=== PATIENT | female | born 1960 | race Caucasian/White ===

== ENCOUNTER → 2016-07-06 | Outpatient (CLI) | payer OTHER ==
--- NOTE | 2016-07-06 11:01 | REP ---
CERVICAL SPINE SERIES: Seven views. HISTORY: History of C2 fracture 20 years ago. Cervical spondylosis with myelopathy. FINDINGS: Lateral views done in flexion/extension and neutral position show normal alignment. No subluxation or instability is seen. No fracture or collapse is seen. There is discogenic spurring anteriorly with disc space narrowing at C4-5. Open-mouth odontoid view is unremarkable. AP view shows osteoarthritic facet sclerosis and hypertrophy on the right at C5-6 and to a lesser extent C4-5. Oblique images demonstrate intact neural foramina bilaterally at each cervical level and normally aligned facets. IMPRESSION: Degenerative spondylosis changes. Osteoarthritic facet disease. Degenerative disc disease at C4-5. Signed by Candido Bains MD 07/06/2016 01:36 P
--- NOTE | 2016-07-06 11:27 | REP ---
LUMBAR SPINE SERIES: 7 views including flexion extension views. HISTORY: Spondylosis with myelopathy lumbar region. FINDINGS: Lumbar vertebral body heights are preserved. There is some straightening of the normal lumbar lordosis. Disc spaces are maintained with minimal narrowing at L4-5. Flexion/extension views show no subluxation or instability. Pedicles and posterior elements are intact. There is no evidence of spondylolysis or spondylolisthesis. Sacrum and SI joints are unremarkable. Visualized bowel gas pattern is normal. Psoas margins are symmetric. IMPRESSION: Minimal disc space narrowing at L4-5. Otherwise negative lumbar spine radiographs. Signed by Candido Bains MD 07/06/2016 01:36 P
== END ==
LOC: M RAD 10:18
PROVIDERS: ATTEND Neurological Surgery
DX: M47.16 Other spondylosis with myelopathy, lumbar region (principal)

== ENCOUNTER → 2016-08-03 | Outpatient (REF) | payer OTHER | LOC: M LAB REF 16:46 | PROVIDERS: ATTEND Neurological Surgery | DX: M47.16 Other spondylosis with myelopathy, lumbar region (principal) ==

== ENCOUNTER → 2016-08-07 | Outpatient (CLI) | payer OTHER ==
[2016-08-07 15:20] LABS: BASO % 0.5 % (0.0-1.0); EOS % 0.7 % (0.0-3.0); LARGE UNSTAINED CELL # 0.1 K/mm3 (0.0-0.4); LYMPH % 28.6 % (24.0-44.0); MEAN CORPUSCULAR HEMOGLOBIN 30.2 pg (27.0-33.0); MEAN CORPUSCULAR HGB CONC 33.8 g/dl (32.0-36.5); MEAN CORPUSCULAR VOLUME 89.3 fl (80.0-96.0); MONO # 0.6 K/mm3 (0.0-0.8); MONO % 7.9 % (0.0-5.0); NEUTROPHILS # 4.2 K/mm3 (1.8-7.7); NEUTROPHILS % 60.2 % (36.0-66.0); PLATELET COUNT, AUTOMATED 287 k/mm3 (150-450); RED CELL DISTRIBUTION WIDTH 12.3 % (11.5-14.5)
[2016-08-07 15:23] LABS: MICROSCOPIC INDICATED? MAN NO (NO)
--- NOTE | 2016-08-07 15:25 | REP ---
Clinical: Preoperative assessment. Technique: PA and lateral. Comparison: None. Findings: A subtle area of opacity in the right upper lobe at the midclavicular line cannot be excluded and warrants chest CT evaluation. Mediastinum and cardiac silhouette normal. Remainder of lung cross clear. Skeletal structures intact. Impression: Cannot exclude subtle right upper lobe opacity. No prior examination for comparison. Consider chest CT for further investigation. Signed by Norberto Flores MD 08/07/2016 03:16 P
[2016-08-07 15:48] LABS: ALBUMIN 4.2 GM/DL (3.2-5.2); ALBUMIN/GLOBULIN RATIO 1.31 (1.00-1.93); ALKALINE PHOSPHATASE 65 U/L (45-117); ALT/SGPT 25 U/L (12-78); ANION GAP 7 MEQ/L (8-16); AST/SGOT 14 U/L (15-37); BILIRUBIN,TOTAL 0.3 MG/DL (0.2-1.0); BLOOD UREA NITROGEN 12 MG/DL (7-18); CALCIUM LEVEL 9.2 MG/DL (8.5-10.1); CARBON DIOXIDE LEVEL 29 MEQ/L (21-32); CHLORIDE LEVEL 103 MEQ/L (98-107); CREATININE FOR GFR 0.81 MG/DL (0.55-1.02); GLOMERULAR FILTRATION RATE > 60.0 (>51); GLUCOSE, FASTING 69 MG/DL (70-105); POTASSIUM SERUM 4.2 MEQ/L (3.5-5.1); SODIUM LEVEL 139 MEQ/L (136-145); TOTAL PROTEIN 7.4 GM/DL (6.4-8.2)
[2016-08-07 15:57] LABS: COLLAGEN ADP > 300 SECONDS (56-103)
--- NOTE | 2016-08-08 07:59 | ECGEPIP ---
Stationary ECG Study [facility] Test Date: 2016-08-07 Pat Name: CARRIE MARTINES Department: Room: - Gender: F Flexible Nanny: : 1960 Requested By: HOWIE Smith Order Number: [id number] Reading MD: Justice Back Measurements Intervals [place] Rate: 81 P: 74 LA: 162 QRS: 75 QRSD: 82 T: 68 QT: 354 QTc: 413 Interpretive Statements SINUS RHYTHM/ SINUS ARRHYTMIA POSSIBLE RIGHT VENTRICULAR CONDUCTION DELAY Electronically Signed On 08-08-2016 7:59:06 EST by Justice Back
== END ==
LOC: M LAB 14:21
PROVIDERS: ATTEND Neurological Surgery
DX: Z01.818 Encounter for other preprocedural examination (principal)

== ENCOUNTER → 2016-08-21 | Outpatient (CLI) | payer OTHER ==
[~2016-08-21] MED LIST: BACL10TA2 PO; CETI10CH PO; GABA300C3 PO; HYDR2TAB2 PO; ISOVUE-370 76% 100ML VIAL (Q9967) As Ordered ONE; LIDO5DIS36 TD; LISI-538 PO; MIRA33504 PO; SENN8.6T10 PO
--- NOTE | 2016-08-21 11:49 | REP ---
REASON: History of neoplasm. No priors for comparison. CONTRAST UTILIZED: 100 mL Isovue-370. There is no mediastinal or hilar adenopathy. There are no pleural or pericardial effusions. The imaged upper abdomen shows left renal scarring with irregular cortical thinning and an irregular left renal morphology, although incompletely imaged on this chest CT. The imaged osseous structures are within normal limits. Evaluation of the lung cross shows a vague 6.3 x 2.3 x 2.3 ground-glass opacity in the right upper lobe. Mild nodular irregular pleural thickening seen in the right lower lobe posteriorly with minimal similar findings seen on the left. There is no evidence of a spiculated lesion. Slight biapical pleuroparenchymal scarring is suspected. IMPRESSION: 1. Large but vague ground-glass opacity in the right upper lobe as described above of uncertain etiology. Pulmonary consultation is suggested. According to the Fleischner Society criteria, this would be categorized as a 4A lesion requiring at least a 3 month followup. 2. Chronic changes seen involving the left kidney as described above. Signed by Brad Mendoza DO 08/21/2016 11:52 A
== END ==
LOC: M RAD 08:38
PROVIDERS: ATTEND Neurological Surgery
DX: D14.31 Benign neoplasm of right bronchus and lung (principal)

== ENCOUNTER 2016-08-26 06:17 | Day surgery (SDC) | payer OTHER ==
[~2016-08-26] VITALS: Ht 165.1 cm; Wt 49.9 kg
[~2016-08-26 06:17] MED LIST changes: +CEFUROXIME SODIUM 1.5 GM in D5W MINI-BAG PLUS 50 ML IV ONE; -ISOVUE-370 76% 100ML VIAL (Q9967) As Ordered ONE; +LR 1,000 ML IV SCH
[2016-08-26] MEDS ORDERED: dexameTHASONE 4 MG/ML 1ML VIAL (J1100) IV ONE (06:30)
[2016-08-26] MEDS ORDERED: THROMBIN SOLN 20,000 UNITS KIT As Ordered ONE (07:21)
[2016-08-26] MEDS: BACITRACIN PWD 50,000 UNITS VIAL As Ordered ONE ×2 (07:22→10:08)
[2016-08-26] MEDS ORDERED: methylPREDNISolone SUSP 40 MG/ML (DEPO-medrol) VIAL (J1030) As Ordered ONE (07:22)
[2016-08-26] MEDS ORDERED: fentaNYL 250 MCG/5 ML INJECTION (J3010) As Ordered ONE (08:47)
[2016-08-26] MEDS ORDERED: LIDOCAINE 2% INJ 100 MG/5 ML SDV (FOR ANES.) As Ordered ONE (08:47)
[2016-08-26] MEDS ORDERED: PROPOFOL 500 MG/50 ML VIAL As Ordered ONE (08:47)
[2016-08-26] MEDS ORDERED: PHENYLephrine HCL 500 MCG/5 ML (100MCG/ML) SYRINGE (J2370) As Ordered ONE (08:47)
[2016-08-26] MEDS ORDERED: dexameTHASONE 4 MG/ML 1ML VIAL (J1100) As Ordered ONE (08:47)
[2016-08-26] MEDS ORDERED: MIDAZOLAM INJ 2 MG/2 ML VIAL (J2250) As Ordered ONE (08:47)
[2016-08-26] MEDS ORDERED: ROCURONIUM BROMIDE 50 MG/5 ML VIAL As Ordered ONE (08:47)
[2016-08-26] MEDS ORDERED: fentaNYL 100 MCG/2 ML INJECTION (J3010) As Ordered ONE ×2 (08:47→11:04)
[2016-08-26] MEDS ORDERED: ONDANSETRON 4MG/2ML VIAL (J2405) As Ordered ONE (08:47)
[2016-08-26] MEDS ORDERED: ePHEDrine SULFATE 25 MG/5 ML(5MG/ML) SYRINGE As Ordered ONE (08:49)
[2016-08-26] MEDS ORDERED: METOCLOPRAMIDE INJ 10MG/2ML VIAL (J2765) As Ordered ONE (09:13)
[2016-08-26] MEDS ORDERED: GLYCOPYRROLATE INJ 0.2 MG/ML 2 ML VIAL As Ordered ONE (09:35)
[2016-08-26] MEDS ORDERED: NEOSTIGMINE 1MG/ML 5 ML SYRINGE (J2710) As Ordered ONE (09:36)
[2016-08-26] MEDS ORDERED: HYDROmorphone HCL 2 MG/ML 1ML VIAL (J1170) As Ordered ONE (09:38)
[2016-08-26] MEDS: fentaNYL 100 MCG/2 ML INJECTION (J3010) IV PRN ×4 (11:05→11:28)
[2016-08-26] MEDS ORDERED: HYDROmorphone HCL 1 MG/ML SYRINGE (J1170) As Ordered ONE (11:25)
[2016-08-26] MEDS ORDERED: ACETAMINOPHEN TAB 650MG DOSE (2X325MG) PO PRN (11:30)
[2016-08-26] MEDS ORDERED: ONDANSETRON 4MG/2ML VIAL (J2405) IV PRN ×2 (11:30)
[2016-08-26] MEDS ORDERED: NORCO, ANEXSIA 5/325MG TABLET (HYDROcodone/ACETAMINOPHEN) PO PRN (11:30)
[2016-08-26] MEDS ORDERED: LR 1,000 ML IV SCH (11:30)
[2016-08-26] MEDS: HYDROmorphone HCL 1 MG/ML SYRINGE (J1170) IV PRN ×5 (11:31→12:14)
[2016-08-26] MEDS ORDERED: NALBUPHINE HCL 10 MG/ML AMP (J2300) IV PRN (11:45)
[2016-08-26] MEDS: PERCOCET 5MG/325MG TAB PO PRN ×2 (11:53→12:27)
[2016-08-26] MEDS: KCL 20MEQ IN D5/0.45NS 1000ML 1,000 ML IV SCH ×2 (12:34→19:43)
[2016-08-26 13:00] VITALS: BP 129/79
[2016-08-26 13:38] VITALS: BP 129/79
[2016-08-26 14:00] VITALS: BP 120/80
--- NOTE | 2016-08-26 14:21 | REP ---
Partial lumbar spine series: Two views. History: Intraoperative films. Lumbar spondylosis. Findings: Two cross-table lateral portable radiographs of the lumbar spine are presented. Initial radiograph is time stamped 9:52 a.m. The second film is time stamped 9:58 a.m. This radiograph demonstrates an intraoperative probe at the posterior aspect of the L4-5 intervertebral disc. Signed by Candido Bains MD 08/26/2016 05:45 P
[2016-08-26 15:00] VITALS: BP 122/78
[2016-08-26 16:00] VITALS: BP 119/88
[2016-08-26] MEDS: NORCO, ANEXSIA 5/325MG TABLET (HYDROcodone/ACETAMINOPHEN) PO PRN ×2 (16:56→21:05)
--- NOTE | 2016-08-26 17:37 | IPN ---
DATE: 08/26/2016 NEUROSURGERY PROCEDURE POSTOPERATIVE NOTE: PREOPERATIVE DIAGNOSIS: Lumbar spondylosis, subarticular stenosis at the L4-5 region. POSTOPERATIVE DIAGNOSIS: Lumbar spondylosis, subarticular stenosis at the L4-5 region. ANESTHESIA: General. SURGEON: Dr. Biggs. HEATING AND COOLING TECHNICIAN: Bree Grayson PA-C. PROCEDURE: Lumbar laminectomy at the L4-5 region with bone plug. FINDINGS: Lumbar spondylosis, subarticular stenosis, bulging disc and a popliteal arthropathy. ESTIMATED BLOOD LOSS: About 5 mL per nursing staff. COMPLICATIONS: None.
[2016-08-26 22:00] VITALS: BP 124/87
[2016-08-27] MEDS: NORCO, ANEXSIA 5/325MG TABLET (HYDROcodone/ACETAMINOPHEN) PO PRN ×5 (01:20→18:29)
[2016-08-27 02:00] VITALS: BP 144/87
[2016-08-27] MEDS: HYDROmorphone 2 MG TAB PO PRN ×4 (02:13→16:13)
[2016-08-27 06:00] VITALS: BP 130/87
[2016-08-27 10:00] VITALS: BP 134/85
[2016-08-27 10:38] VITALS: BP 134/81
[2016-08-27 14:00] VITALS: BP 127/82
--- NOTE | 2016-08-27 15:12 | RO ---
DATE OF PROCEDURE: 08/26/2016 PREPROCEDURE DIAGNOSES: Lumbar spondylosis with radiculopathy, neurogenic claudication, facet arthritis. POSTPROCEDURE DIAGNOSES: Lumbar spondylosis with radiculopathy, neurogenic claudication, facet arthritis. PROCEDURE: Decompression of left, across the midline at L4-5 with discectomy, joceline-semi myomectomies with partial facetectomies and foraminotomies, partial facet rhizotomies at L3-4, L4-5, L5-S1 on the left with posterior fusion using Bacterin interfacet allograft plug at L4-5. SURGEON: Derik Biggs MD BOX LINING MACHINE FEEDER: JAIRO Colón FINDINGS: Please see my office notes for detailed preoperative evaluation and discussions. The patient with relentless low back and mostly left leg pain along L5-S1 distribution in a radicular neurogenic fashion. The work up showed early degenerative changes involving the disc spaces and the posterior elements, causing a degree of inferior foraminal and lateral recess stenosis.. She was seen in the pre op area with her . Her clinical findings were unchanged. Patient and her were aware of all options, risk, scope, expected outcome, sequelae, and complications of the proposed salvage procedure. They understood no guarantees of any kind could be given and the risk of surgery included, but not limited to , coma, paralysis, spinal fluid leakage, meningitis, persistence or worsening of symptoms and/or any deficits, failure of surgery, fusion and/or instrumentation if used, infection, bleeding, deep vein thrombosis (DVT), pulmonary embolism (PE), myocardial infarction (WA), and/or any catastrophic sequelae. The patient and her understood that she is a poor candidate for surgery and it is based on her clinical and radiological findings and history of recently diagnosed large mass in the lung. The patient once again stated that there is no way she could live with these symptoms anymore and is willing to take any or all risk for any possible benefits. She has been taking extensive amount of Narcotics for quite some time. All risks, anesthesia and followup care were discussed with her in the past and again today. After informed consent, she was taken to the operating room. DESCRIPTION OF PROCEDURE: Once in the operating room, general endotracheal anesthesia was given by the anesthesia service. The area of surgery was prepped and draped in the usual sterile fashion. She was positioned prone on a translucent Joshua frame and a fluoroscopic Melvin table. After adequate prep and drape, a skin incision was given centering over the L4/5 inter space. Lumbodorsal fascia was reached and incised on the left of the midline. The paraspinal ,muscles were from the midline structures, keeping the dissection mostly in the paraspinal adipose tissue. Sacrum was visualized; thus L4-L5 interspace was identified. The exposed facets were markedly hypertrophied with redundant capsules. Posterolateral aspect of these were coagulated with a bipolar cautery from L3/ L4 through L5-S1 in the hope of achieving partial facet rhizotomies. Attention was now paid at L4-L5 where generous joceline-semi laminectomy was performed. The decompression was carried superolaterally between the two pedicles to make more room for the exiting nerve root and inferiorly the decompression was carried out to the origin of the S1 nerve root. There was considerable hypertrophy of the facets and ligamentum flavum, and there was a bulging disc with a mall soft component. These findings were contributing to neural compression of thecal sac, and the traversing L5 nerve root, exiting L4 nerve root and also the origin of the S1 root.The bulging disc was generally hard and firm, with a small component of subligamentously herniated disc herniated disc. The disc space was was entered after a stab incision was given over the thinned out annulus, and subligamentously herniated disc was removed in several small pieces. The disc space was then entered and more degenerative disc fragments were removed. There was hypermobility at the L4-L5 facet joint. The left facet joint was opened for several millimeters in its longitudinal axis, and the joint space was cleaned off the redundant synovial tissue. Stylet was placed in the facet joint and it was followed by placement of drill guide; 5 mm drill was used to drill across the facet joint and a 5 mm allograft plug was then placed across the facet joints. Hemostasis was secured throughout the procedure. Blood loss was negligible. There was nothing in the container, maybe 5 or 10 ml per the OR staff. The wound was subsequently closed in anatomic layers and a sterile bandage was applied at the site of surgery. The patient tolerated the procedure satisfactorily and was transferred to the recovery room in stable condition. CAMRON
[2016-08-27] MEDS ORDERED: CIPR-250 PO (17:57)
[2016-08-27] MEDS ORDERED: LORT5TAB PO (17:57)
--- NOTE | 2016-08-28 17:47 | DS.PDOC ---
Discharge Summary General Date of Admission 08/26/2016 Date of Discharge 08/27/2016 Discharge Summary PROCEDURES PERFORMED DURING STAY: Decompression left and across midline, discectomy L4 and L5, with [id number], partial facetectomies, foraminotomies, partial facet rhizotomies, L3/4, L4/5, L5/S1 on the left. Interfacet fusion left L4/L5 using Bacterin allograft plug. ADMITTING DIAGNOSES: 1. Lumbar spondylosis with radiculopathy 2. Neurogenic claudication 3. Facet arthritis DISCHARGE DIAGNOSES: 1. Lumbar spondylosis with radiculopathy 2. Neurogenic claudication 3. Facet arthritis COMPLICATIONS/CHIEF COMPLAINT: Lumbar Spondylosis With Myelopathy. HISTORY OF PRESENT ILLNESS: Please see the physical for details patient long- standing history of chronic low back pain extending down her leg as well as neurogenic condition she had been managing this with large dose narcotics for quite some time. She decided to proceed with salvage surgery. She states she could no Longer Live with This Pain. HOSPITAL COURSE: The hospital course was uneventful Dr. Biggs seen the patient postoperatively she denied any pain of any sort and she will walking on them uneventfully. However the time of discharge she claims the pain was intense in these issues reported that she has normal postoperative ecchymosis because of pain medication she was taking she requested that she be discharged with Dilaudid. Istop suggested that she has been taking Dilaudid prescribed by her primary care provider as she should still have 2 weeks of Dilaudid. Tynan was given and was advised to take his medications but not combined. She was discharged with follow-up instructions and she expressed understanding of the same DISCHARGE MEDICATIONS: Please see below. ALLERGIES: Latex, morphine. LABORATORY DATA: Please see below. IMAGING: Including MRI showed degenerative changes involving the disc spaces as well as the posterior ligaments, and L4-L5 she has a degree of foraminal lateral recess stenosis. DISPOSITION: Improved. She has been cleared for discharge to home. DISCHARGE INSTRUCTIONS: 1. Keep area of incision and bandage completely dry until follow-up in the office. 2. Monitor for signs and symptoms of infection is discussed. 3. Follow-up appointment is scheduled for September 13, 2016. 4. Patient is to call the office if any new symptoms or questions. 5. She is to continue pre-admission medications as well as new medications Cipro 250 mg by mouth twice a day for 5 days. 6. Diet as tolerated. 7. Activity as tolerated. 8. Take temperature twice a day, call if temperature greater than or equal to 100F. All questions have been answered to patient and her 's satisfaction. DISCHARGE CONDITION: Stable. TIME SPENT ON DISCHARGE: Greater than 30 minutes. Vital Signs/I&Os Vital Signs Date Time Temp Pulse Resp B/P Pulse Ox O2 Delivery O2 Flow Rate FiO2 08/27/16 18:29 16 08/27/16 16:43 Room Air 08/27/16 14:00 98.2 80 127/82 97 08/27/16 02:00 2.0 I&O- Last 24 Hours up to 6 AM 08/28/16 06:00 Intake Total 1080 ml Output Total 0 ml Balance 1080 ml Discharge Medications Scheduled Baclofen (Baclofen) 10 Mg Tab 20 MG PO TID (Reported) Cetirizine HCl (Cetirizine HCl) 10 Mg Chw 10 MG PO DAILY (Reported) Ciprofloxacin HCl (Cipro) 250 Mg Tab 250 MG PO BID (Reported) for 5 days Gabapentin (Gabapentin) 300 Mg Cap 300 MG PO TID (Reported) Lisinopril (Lisinopril) 20 Mg Tab 20 MG PO DAILY (Reported) Polyethylene Glycol (Miralax) 1 Pow Pow 17 GM PO DAILY (Reported) Senna (Senna Lax) 8.6 Mg Tab 2 TAB PO DAILY (Reported) Scheduled PRN (Lortab 5-325 mg) 1 Tab Tab 1 TAB PO Q4HP PRN PRN PAIN SCALE 1-5 (Reported) (Lortab 5-325 mg) 1 Tab Tab 2 TAB PO Q4HP PRN PRN PAIN SCALE 6-10 (Reported) Allergies Coded Allergies: Latex (Verified Allergy, Unknown, rash, 08/21/16) Morphine (Verified Adverse Reaction, Mild, vomiting, 08/21/16) WIL MCCLURE PA-C Aug 28, 2016 17:27
== END 2016-08-27 18:50 | disposition home or self-care (01) ==
LOC: M SDC 06:17 → M MS5PR 12:50 → M SDC 08-27 18:50
PROVIDERS: ATTEND Neurological Surgery
DX: M48.06 Spinal stenosis, lumbar region (principal); M47.16 Other spondylosis with myelopathy, lumbar region; M46.1 Sacroiliitis, not elsewhere classified; I10 Essential (primary) hypertension; J45.909 Unspecified asthma, uncomplicated; K21.9 Gastro-esophageal reflux disease without esophagitis; D68.0 Von Willebrand disease; Z91.040 Latex allergy status; Z79.899 Other long term (current) drug therapy
CPT/HCPCS: 20931; 22630; 36415; 63185; 72110; 85576; 88304; C1762; J0697; J1030; J1100; J1170; J2250; J2370; J2405; J2710; J2765; J3010

== ENCOUNTER 2016-09-05 05:42 | Emergency (ER) | payer OTHER ==
[~2016-09-05] VITALS: Ht 165.1 cm; Wt 49.9 kg
[~2016-09-05 05:42] MED LIST changes: -CEFUROXIME SODIUM 1.5 GM in D5W MINI-BAG PLUS 50 ML IV ONE; +CIPR-250 PO; +LORT5TAB PO; -LR 1,000 ML IV SCH
[2016-09-05] MEDS ORDERED: ONDANSETRON 4MG/2ML VIAL (J2405) IV ONE (07:30)
[2016-09-05 07:40] LABS: MEAN CORPUSCULAR HEMOGLOBIN 29.9 pg (27.0-33.0); MEAN CORPUSCULAR HGB CONC 33.4 g/dl (32.0-36.5); MEAN CORPUSCULAR VOLUME 89.3 fl (80.0-96.0); RED CELL DISTRIBUTION WIDTH 12.3 % (11.5-14.5); WHITE BLOOD COUNT 10.6 K/mm3 (4.0-10.0)
[2016-09-05 07:56] LABS: ERYTHROCYTE SEDIMENTATION RATE 17 mm/hr (0-30)
[2016-09-05 08:00] LABS: ANION GAP 8 MEQ/L (8-16); BLOOD UREA NITROGEN 9 MG/DL (7-18); CALCIUM LEVEL 8.8 MG/DL (8.5-10.1); CARBON DIOXIDE LEVEL 26 MEQ/L (21-32); CHLORIDE LEVEL 102 MEQ/L (98-107); CREATININE FOR GFR 0.56 MG/DL (0.55-1.02); GLOMERULAR FILTRATION RATE > 60.0 (>51); GLUCOSE, FASTING 98 MG/DL (70-105); POTASSIUM SERUM 4.1 MEQ/L (3.5-5.1); SODIUM LEVEL 136 MEQ/L (136-145)
[2016-09-05] MEDS ORDERED: MORPHINE 4 MG/ML 1ML SYRINGE IV ONE ×3 (08:30→12:30)
[2016-09-05] MEDS ORDERED: KETOROLAC 30 MG/ML VIAL (J1885) IV ONE (12:30)
[2016-09-05] MEDS ORDERED: KETOROLAC 30 MG/ML VIAL (J1885) As Ordered ONE (12:31)
[2016-09-05] MEDS ORDERED: PERC5TAB6 PO (12:49)
--- NOTE | 2016-09-05 12:51 | REP ---
MRI lumbar spine without and with IV contrast: History: Postoperative swelling, lumbar pain, surgery August 26, 2016. Comparison radiographs are from August 26, 2016. No comparison MRI scan is available. Technique: Pre and post gadolinium enhanced imaging is acquired. Axial and sagittal imaging planes are utilized for T1 and T2-weighted scans obtained with and without fat saturation. MRI contrast dose: 9 mL of intravenous ProHance is administered. MRI findings: Cortical and medullary bone signal intensity are normal. Vertebral body heights are preserved. Alignment is normal. There is some decreased disc space height at L4-5 and there is central bulging of the posterior disc margin indenting the ventral aspect of the thecal sac. This is more prominent on the right than the left. The patient is status post laminectomy at this L4-5 level to the left of midline. Expected post laminectomy changes are seen in the dorsal paraspinal soft tissues. There is postoperative edema over a fairly broad area in the dorsal subcutaneous fat layer. This measures 14 cm in medial to lateral dimension by 1.4 cm in thickness by 9.1 cm in craniocaudal span. There is heterogeneous T2 hyperintense T1 hyperintense fluid or blood under the skin and the subcutaneous tissue centered about the L4-5 laminectomy site. The paravertebral soft tissues are unremarkable. There is mild central canal narrowing at L4-5. Minimal facet hypertrophy is present at L5-S1 bilaterally. No other disc protrusion is seen. Impression: Complex fluid collection in the subcutaneous space dorsally centered about the laminectomy site at L4-5; may be a hematoma. Expected postoperative changes are seen in the paraspinal soft tissues and along the left lateral aspect of the thecal sac at L4-5. There is mild central canal stenosis at L4-5. Diffuse bulging of the central and right side of the L4-5 disc is seen. There is no evidence of epidural fluid collection. Signed by Candido Bains MD 09/05/2016 01:45 P
[2016-09-05] MEDS ORDERED: DERMABOND TOPICAL SKIN ADHESIVE TOP ONE (13:00)
[2016-09-05 13:23] VITALS: BP 116/70
[2016-09-06] MEDS ORDERED: PERC5TAB6 PO (19:25)
[2016-09-06] MEDS ORDERED: CETI10TA PO (19:25)
[2016-09-06] MEDS ORDERED: BACL-67 PO (19:25)
== END 2016-09-05 13:34 | disposition home or self-care (01) ==
LOC: M ED 07:05
DX: M96.840 Postprocedural hematoma of a musculoskeletal structure following a musculoskeletal system procedure (principal)
CPT/HCPCS: 72158; 80048; 85007; 85027; 85652; 86140; 96374; 96375; 96376; 99283; A9576; J1885; J2405

== ENCOUNTER 2016-09-06 17:56 | Inpatient (IN) | payer OTHER ==
[~2016-09-06] VITALS: Ht 165.1 cm; Wt 48.6 kg
[~2016-09-06 17:56] MED LIST changes: +GABA-282 PO; -GABA300C3 PO; +PERC5TAB6 PO
[2016-09-06] MEDS ORDERED: NS 1,000 ML IV SCH ×2 (18:03→19:34)
[2016-09-06] MEDS ORDERED: ACETAMINOPHEN TAB 650MG DOSE (2X325MG) PO ONE (18:15)
[2016-09-06] MEDS ORDERED: MORPHINE 4 MG/ML 1ML SYRINGE IV ONE (18:15)
[2016-09-06 19:15] LABS: BASO % 0.1 % (0.0-1.0); EOS # 0.1 K/mm3 (0.0-0.50); EOS % 0.4 % (0.0-3.0); LARGE UNSTAINED CELL # 0.1 K/mm3 (0.0-0.4); LARGE UNSTAINED CELL % 0.6 % (0.0-4.0); LYMPH # 1.9 K/mm3 (1.5-4.5); LYMPH % 9.9 % (24.0-44.0); MEAN CORPUSCULAR HEMOGLOBIN 30.2 pg (27.0-33.0); MEAN CORPUSCULAR HGB CONC 33.6 g/dl (32.0-36.5); MEAN CORPUSCULAR VOLUME 89.8 fl (80.0-96.0); MONO # 0.9 K/mm3 (0.0-0.8); MONO % 4.9 % (0.0-5.0); NEUTROPHILS # 16.1 K/mm3 (1.8-7.7); PLATELET COUNT, AUTOMATED 288 k/mm3 (150-450); RED CELL DISTRIBUTION WIDTH 12.1 % (11.5-14.5); WHITE BLOOD COUNT 19.1 K/mm3 (4.0-10.0)
[2016-09-06] MEDS ORDERED: ONDANSETRON 4MG/2ML VIAL (J2405) IV ONE (19:15)
[2016-09-06 19:19] LABS: INR 1.08
[2016-09-06] MEDS ORDERED: ceFAZolin 2 GM/D5W 50 ML IV BAG (J0690) As Ordered ONE (19:23)
[2016-09-06] MEDS ORDERED: BACL-67 PO (19:25)
[2016-09-06] MEDS ORDERED: PERC5TAB6 PO (19:25)
[2016-09-06] MEDS ORDERED: CETI10TA PO (19:25)
[2016-09-06] MEDS ORDERED: THROMBIN SOLN 20,000 UNITS KIT As Ordered ONE (19:32)
[2016-09-06] MEDS ORDERED: methylPREDNISolone SUSP 40 MG/ML (DEPO-medrol) VIAL (J1030) As Ordered ONE (19:33)
[2016-09-06] MEDS ORDERED: BACITRACIN PWD 50,000 UNITS VIAL As Ordered ONE ×2 (19:33→21:15)
[2016-09-06 19:35] LABS: ALBUMIN 3.7 GM/DL (3.2-5.2); ALBUMIN/GLOBULIN RATIO 1.06 (1.00-1.93); ALKALINE PHOSPHATASE 84 U/L (45-117); ALT/SGPT 34 U/L (12-78); AMYLASE 37 U/L (25-115); ANION GAP 11 MEQ/L (8-16); AST/SGOT 27 U/L (15-37); BILIRUBIN,DIRECT 0.2 MG/DL (0.0-0.2); BILIRUBIN,TOTAL 0.6 MG/DL (0.2-1.0); BLOOD UREA NITROGEN 13 MG/DL (7-18); CALCIUM LEVEL 8.7 MG/DL (8.5-10.1); CARBON DIOXIDE LEVEL 25 MEQ/L (21-32); CHLORIDE LEVEL 99 MEQ/L (98-107); CREATININE FOR GFR 0.73 MG/DL (0.55-1.02); GLOMERULAR FILTRATION RATE > 60.0 (>51); GLUCOSE, FASTING 91 MG/DL (70-105); POTASSIUM SERUM 4.4 MEQ/L (3.5-5.1); SODIUM LEVEL 135 MEQ/L (136-145); TOTAL PROTEIN 7.2 GM/DL (6.4-8.2)
[2016-09-06 19:36] LABS: ERYTHROCYTE SEDIMENTATION RATE 44 mm/hr (0-30)
[2016-09-06] MEDS ORDERED: ACETAMINOPHEN TAB 650MG DOSE (2X325MG) PO PRN (19:45)
[2016-09-06] MEDS ORDERED: MEROPENEM INJ 2 GM in NS 100 ML IV SCH (19:45)
[2016-09-06] MEDS ORDERED: VANCOMYCIN HCL 750 MG, VIAL MATE ADAPTER 1 EACH in D5W 250 ML IV SCH (19:45)
[2016-09-06] MEDS ORDERED: ONDANSETRON 4MG/2ML VIAL (J2405) IV PRN ×2 (19:45→22:30)
--- NOTE | 2016-09-06 20:36 | CR.PDOC ---
[facility] Consultation Consultation DATE OF CONSULTATION: Sep 06, 2016 at 18:28 REFERRING PROVIDER: Dr. Biggs ATTENDING PHYSICIAN: Dr. Biggs REASON FOR CONSULTATION/CHIEF COMPLAINT: Presented to the ER with complaints of back pain, headache, nausea, vomiting and fever. 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 She notes that she had a laminectomy of L4-L5 on 08/[address] Biggs. She had the procedure schedule because of chronic back pain and radiculopathy. Patient has had improvement in her symptoms for 1 week until this Wednesday (09/04) she began to have worsening back pain. Upon changing the dressing her noted that there was a large amount of clear fluid that was coming out. Patient had headache and nausea and vomiting throughout the weekend and prompted her to come to the ER. Her headache was reported as a 10/10, continuous , radiating to temples, minor alleviation with ice packs and aggravation with standing up. She notes that this is the first time she has experienced this. She reports that she has had nausea and vomiting, about 5 times, non-bloody and non-bilious. She reports that she has been having some back pain associated with the surgery and now has progressed to a pressure type of feeling at the back. She also notes a fever today of 103.0F. She denies any chest pain, shortness of breath, cough, abdominal pain, constipation or diarrhea. She does note that she has burning with urination. ALLERGIES: Please see below. HOME MEDICATIONS: Please see below. 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 REVIEW OF SYSTEMS: Constitutional: Denies weight loss, change in appetite, or recent trauma Eyes: No visual changes or eye pain Ears, Nose, Throat: Denies nose bleeds, or difficulty swallowing Cardiovascular: Denies chest pain, sweating, or orthopnea Respiratory: Denies cough, wheezing, or shortness of breath GI: Positive nausea and vomiting, No abdominal pain, diarrhea or constipation : Positive dysuria Musculoskeletal: Denies joint pain or swelling Neuro / Psych: Positive leg weakness at left and right, no upper extremity weakness, no sensory loss Skin: No skin rashes noted All other review of systems negative; otherwise stated in history of present illness PHYSICAL EXAM: - Vitals: BP 157/97, HR 112, RR 20, Sat 96%RA, Temp 101.6F - General: Lying in bed, No acute distress, Speaking in full sentences, AAOx3 - HEENT: NC, AT, PERRLA, EOMI - CVS: RRR, +S1S2, - Murmurs / rubs / gallops - Lungs: Fair air entry bilaterally, Clear to auscultation, No wheezing / rales / rhonchi - Abdomen: Soft, Non-distended, Non-tender, + Bowel sounds x 4 - Extremities: + PPx4, No lower extremity edema, No calf tenderness - Neuro: 3-4/5 strength at bilateral lower extremities, no upper extremity weakness, no sensory deficit - Skin: Lumbar incision, minor drainage noted, some erythema noted, +tenderness LABORATORY DATA: Please see below. ASSESSMENT/PLAN: Headache, lower back pain, fever, lower extremity weakness possibly 2/2 fluid collection at lumbar incision site, possibly 2/2 hematoma or abscess, possibly 2 /2 CSF fluid leak - Presented with headache and nausea and vomiting - Headache appears to be CSF related; worse with standing and improved with lying flat - Febrile at home of 103.0F and in the ER at 101.6F - MRI 09/05: complex fluid collection in the subcutaneous space dorsally at laminectomy - Elevated WBC, ESR, CRP and Lactic acid - Will f/u lactic acid, will check blood cultures, urine cultures and urinalysis , will send for CSF fluid - Will give IV fluid bolus of 1 L and c/w NS at 100 cc/hr - Patient admitted under Neurosurgical service (Dr. 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; Vancomycin and Meropenem Sepsis possibly 2/2 CSF infection, possibly 2/2 abscess, possibly 2/2 UTI - See number 1 HTN - c/w lisinopril with holding parameters Mass of lung - reports there was a mass found that is pending evaluation by Pulmonary ( outpatient) - CT chest 08/21: large vague ground glass opacity in RUL - will get CXR now History of pancreatitis (2/2 alcohol) - No abdominal pain at this time History of Constipation - c/w miralax and senna DVT prophylaxis - Will start SCDs - Start anticoagulation based on surgical recommendations Vital Signs/I&O Vital Signs Date Time Temp Pulse Resp B/P Pulse Ox O2 Delivery O2 Flow Rate FiO2 09/06/16 19:42 101.6 112 20 157/97 96 09/06/16 19:13 Room Air Laboratory Data Labs 24H Laboratory Tests 2 09/06/16 18:20: Aspartate Amino Transf (AST/SGOT) 27, Alanine Aminotransferase (ALT/SGPT) 34, Alkaline Phosphatase 84, Total Bilirubin 0.6, Direct Bilirubin 0.2, Albumin 3.7 , Albumin/Globulin Ratio 1.06, Amylase Level 37, Anion Gap 11, White Blood Count 19.1H, Red Blood Count 4.54, Hemoglobin 13.7, Hematocrit 40.8, Mean Corpuscular Volume 89.8, Mean Corpuscular Hemoglobin 30.2, Mean Corpuscular Hemoglobin Concent 33.6, Red Cell Distribution Width 12.1, Platelet Count 288, Neutrophils (%) (Auto) 84.0H, Lymphocytes (%) (Auto) 9.9L, Monocytes (%) (Auto) 4.9, Eosinophils (%) (Auto) 0.4, Basophils (%) (Auto) 0.1, Neutrophils # (Auto) 16.1H, Lymphocytes # (Auto) 1.9, Monocytes # (Auto) 0.9H, Eosinophils # (Auto) 0.1, Basophils # (Auto) 0.0, C-Reactive Protein, Quantitative 16.60H, Calcium Level 8.7, Creatine Kinase MB 1.0, Creatine Kinase MB Relative Index 2.22, Erythrocyte Sedimentation Rate 44H, Glomerular Filtration Rate > 60.0, Lactic Acid (Sepsis) 3.3*H, Large Unclassified Cells # 0.1, Large Unclassified Cells % 0.6, Prothromb Time International Ratio 1.08, Prothrombin Time 14.1, Total Creatine Kinase 45, Total Protein 7.2, Troponin I 0.03 CBC/BMP Laboratory Tests 09/06/16 18:20 Red Blood Count 4.54, Mean Corpuscular Volume 89.8, Mean Corpuscular Hemoglobin 30.2, Mean Corpuscular Hemoglobin Concent 33.6, Red Cell Distribution Width 12.1 , Neutrophils (%) (Auto) 84.0 H, Lymphocytes (%) (Auto) 9.9 L, Monocytes (%) ( Auto) 4.9, Eosinophils (%) (Auto) 0.4, Basophils (%) (Auto) 0.1, Neutrophils # ( Auto) 16.1 H, Lymphocytes # (Auto) 1.9, Monocytes # (Auto) 0.9 H, Eosinophils # (Auto) 0.1, Basophils # (Auto) 0.0 Microbiology Microbiology 09/06/16 Blood Culture, Received Pending 09/06/16 Blood Culture, Received Pending Allergies Coded Allergies: Latex (Verified Allergy, Unknown, rash, 08/21/16) Morphine (Verified Adverse Reaction, Mild, vomiting, 08/21/16) Home Medications Scheduled Baclofen (Baclofen) 20 Mg Tab 20 MG PO TID (Reported) Cetirizine HCl (Cetirizine HCl) 10 Mg Tab 10 MG PO QHS (Reported) Lisinopril (Lisinopril) 20 Mg Tab 20 MG PO QHS (Reported) Polyethylene Glycol (Miralax) 1 Pow Pow 17 GM PO QHS (Reported) Senna (Senna Lax) 8.6 Mg Tab 2 TAB PO QHS (Reported) Scheduled PRN Oxycodone/Acetaminophen (Percocet 5-325 mg) 1 Tab Tab 1 TAB PO Q6H PRN PRN PAIN (Reported) OSWALDO DE GUZMAN MD Sep 06, 2016 20:36
--- NOTE | 2016-09-06 20:40 | ECGEPIP ---
Stationary ECG Study [facility] - ED Test Date: 2016-09-06 Pat Name: CARRIE MARTINES Department: Room: - Gender: F Telephonic Rn: LaroseB: 1960 Requested By: Leatha Badillo Order Number: [id number] Reading MD: Leatha Badillo Measurements Intervals [place] Rate: 106 P: 18 AR: 142 QRS: 43 QRSD: 77 T: 47 QT: 305 QTc: 406 Interpretive Statements SINUS TACHYCARDIA POSSIBLE RIGHT VENTRICULAR CONDUCTION DELAY MODERATE ST DEPRESSION INCREASED 08/07/16 Electronically Signed On 09-06-2016 20:40:12 EDT by Leatha Badillo
[2016-09-06] MEDS ORDERED: PERCOCET 5MG/325MG TAB PO PRN ×3 (20:45→23:15)
[2016-09-06] MEDS ORDERED: SENNA 8.6 MG TAB (SENOKOT) PO SCH (21:00)
[2016-09-06] MEDS ORDERED: MIRALAX *UNIT DOSE* 17GM PACKET PO SCH (21:00)
[2016-09-06] MEDS ORDERED: LISINOPRIL 20 MG TAB PO SCH (21:00)
[2016-09-06] MEDS ORDERED: ROCURONIUM BROMIDE 50 MG/5 ML VIAL As Ordered ONE (21:03)
[2016-09-06] MEDS ORDERED: LIDOCAINE 2% INJ 100 MG/5 ML SDV (FOR ANES.) As Ordered ONE (21:03)
[2016-09-06] MEDS ORDERED: GLYCOPYRROLATE INJ 0.2 MG/ML 2 ML VIAL As Ordered ONE (21:03)
[2016-09-06] MEDS ORDERED: dexameTHASONE 4 MG/ML 1ML VIAL (J1100) As Ordered ONE (21:03)
[2016-09-06] MEDS ORDERED: PHENYLephrine HCL 500 MCG/5 ML (100MCG/ML) SYRINGE (J2370) As Ordered ONE (21:03)
[2016-09-06] MEDS ORDERED: MIDAZOLAM INJ 2 MG/2 ML VIAL (J2250) As Ordered ONE ×2 (21:03→22:05)
[2016-09-06] MEDS ORDERED: ONDANSETRON 4MG/2ML VIAL (J2405) As Ordered ONE (21:03)
[2016-09-06] MEDS ORDERED: NEOSTIGMINE 1MG/ML 5 ML SYRINGE (J2710) As Ordered ONE (21:03)
[2016-09-06] MEDS ORDERED: METOCLOPRAMIDE INJ 10MG/2ML VIAL (J2765) As Ordered ONE (21:03)
[2016-09-06] MEDS ORDERED: fentaNYL 250 MCG/5 ML INJECTION (J3010) As Ordered ONE (21:03)
[2016-09-06] MEDS ORDERED: PROPOFOL 200 MG/20 ML VIAL As Ordered ONE (21:10)
[2016-09-06] MEDS ORDERED: KCL 20MEQ IN D5/.45NACL 1000ML As Ordered ONE (22:07)
[2016-09-06] MEDS ORDERED: LR 1,000 ML IV SCH (22:30)
[2016-09-06] MEDS ORDERED: fentaNYL 100 MCG/2 ML INJECTION (J3010) IV PRN (22:30)
[2016-09-06] MEDS ORDERED: HYDROmorphone HCL 1 MG/ML SYRINGE (J1170) As Ordered ONE (22:33)
[2016-09-06] MEDS: HYDROmorphone HCL 1 MG/ML SYRINGE (J1170) IV PRN ×5 (22:38→23:18)
[2016-09-06] MEDS ORDERED: KCL 20MEQ IN D5/0.45NS 1000ML 1,000 ML IV SCH (23:00)
[2016-09-06] MEDS ORDERED: PERCOCET 5MG/325MG TAB As Ordered ONE (23:05)
[2016-09-06 23:25] VITALS: BP 111/70
[2016-09-06 23:55] VITALS: BP 111/73
[2016-09-07] VITALS (10 sets, daily range): BP systolic 97–123; BP diastolic 58–79
[2016-09-07] MEDS: CETIRIZINE (ZyrTEC) 10 MG TAB PO SCH ×2 (01:17→20:17)
[2016-09-07] MEDS: ceFAZolin SOD 1 GM in D5W MINI-BAG PLUS 50 ML IV SCH ×4 (01:18→20:17)
[2016-09-07] MEDS: BACLOFEN 10 MG TAB PO SCH ×4 (01:18→20:17)
[2016-09-07] MEDS: PERCOCET 5MG/325MG TAB PO PRN ×5 (01:33→20:18)
[2016-09-07] MEDS: MORPHINE 2 MG/ML 1ML SYRINGE IV PRN ×3 (04:13→12:10)
[2016-09-07 06:27] LABS: BASO % 0.1 % (0.0-1.0); EOS # 0.1 K/mm3 (0.0-0.50); EOS % 0.7 % (0.0-3.0); LARGE UNSTAINED CELL % 0.2 % (0.0-4.0); LYMPH % 5.8 % (24.0-44.0); MEAN CORPUSCULAR HEMOGLOBIN 30.6 pg (27.0-33.0); MEAN CORPUSCULAR VOLUME 90.2 fl (80.0-96.0); MONO # 0.5 K/mm3 (0.0-0.8); MONO % 3.1 % (0.0-5.0); NEUTROPHILS # 14.9 K/mm3 (1.8-7.7); NEUTROPHILS % 90.1 % (36.0-66.0); PLATELET COUNT, AUTOMATED 259 k/mm3 (150-450); RED CELL DISTRIBUTION WIDTH 12.3 % (11.5-14.5); WHITE BLOOD COUNT 16.5 K/mm3 (4.0-10.0)
[2016-09-07 06:32] LABS: ALBUMIN 2.7 GM/DL (3.2-5.2); ALBUMIN/GLOBULIN RATIO 0.77 (1.00-1.93); ALKALINE PHOSPHATASE 63 U/L (45-117); ALT/SGPT 22 U/L (12-78); ANION GAP 6 MEQ/L (8-16); AST/SGOT 15 U/L (15-37); BILIRUBIN,TOTAL 0.4 MG/DL (0.2-1.0); BLOOD UREA NITROGEN 10 MG/DL (7-18); CALCIUM LEVEL 8.6 MG/DL (8.5-10.1); CARBON DIOXIDE LEVEL 25 MEQ/L (21-32); CHLORIDE LEVEL 106 MEQ/L (98-107); CREATININE FOR GFR 0.63 MG/DL (0.55-1.02); GLOMERULAR FILTRATION RATE > 60.0 (>51); GLUCOSE, FASTING 140 MG/DL (70-105); POTASSIUM SERUM 4.5 MEQ/L (3.5-5.1); SODIUM LEVEL 137 MEQ/L (136-145); TOTAL PROTEIN 6.2 GM/DL (6.4-8.2)
--- NOTE | 2016-09-07 07:18 | REP ---
PORTABLE CHEST X-RAY: Single view. HISTORY: Fever. Comparison study August 07, 2016. FINDINGS: The lungs are symmetrically aerated and free of infiltrate. Pleural angles are sharp. Heart size is normal. Pulmonary vasculature is not increased. IMPRESSION: No active disease. Signed by Candido Bains MD 09/07/2016 11:41 A
--- NOTE | 2016-09-07 09:20 | RO ---
DATE OF PROCEDURE: 09/06/2016 PREPROCEDURE DIAGNOSIS: Lumbar laminectomy wound swelling. POSTPROCEDURE DIAGNOSIS: Serosanguineous collection subcutaneously, cultures pending. PROCEDURE: Lumbar laminectomy wound exploration and debridement, drainage of serosanguineous collection subcutaneously. GENERAL SURGEON: Derik Biggs MD MEMORY CARE DIRECTOR: None. FINDINGS: Please see my hospital record for preoperative evaluation. The patient's called this morning stating that she had noticed a lump in the incision. She had similar symptoms yesterday and was seen in the emergency room where her incision looked quite unremarkable and her blood count was also unremarkable, including the sedimentation rate and C-reactive protein. She and her were aware of all options yesterday and again today and she understood my rationale for wound exploration, as the patient had developed fever today, though I could not see any overt signs of cellulitis, drainage, purulence at the incision. The patient and her were aware of all options, expected outcome, sequelae and complications of the proposed exploration. They understood the complications of the surgery, including , paralysis, meningitis, worsening of the infection if she has one, failure of surgery, need for multiple surgeries, infection, bleeding, deep vein thrombosis (DVT), myocardial infarction, and worsening of seizure disorder and any other catastrophic sequelae. The patient wished to proceed with surgery. DESCRIPTION OF PROCEDURE: Once in the operating room, general endotracheal anesthesia was given by the anesthesia service. The patient was then positioned on the fluoroscopic table with the translucent Joshua frame. The area of surgery was prepped and draped in the usual sterile fashion. Previous laminectomy incision was opened. Serosanguineous fluid collection was seen in the subcutaneous layer and no rosa purulence or granulation tissues were seen. The Lumbodorsal fascias was opened similarly and no obvious purulence or significant granulation tissue was seen. The epidural space was inspected and multiple Valsalva maneuvers were done and no obvious CSF leak was encountered. The wound layers were reapproximated. The previous skin incision was encircled and the cut edges were debrided and the wound was closed with intermittent subcutaneous sutures Good approximation of the skin was achieved. At this time, Prevena suction dressing was applied. Blood loss was negligible, less than 25 mL per the anesthesia service. The patient tolerated the procedure well and was transferred to the recovery room in stable condition. Operative findings were discussed with the patient's . CAMRON
--- NOTE | 2016-09-07 11:49 | IPN ---
DATE OF SERVICE: 09/07/2016 Lizeth is seen in [address] [place] [address]. The hospitalists were consulted for medical issues, which essentially are hypertension which is under good control. She is having a lot of back pain, but that is related to her surgery. No chest pain or shortness of breath. PHYSICAL EXAMINATION: 118/71, pulse 69, respiratory rate 18, 98% oxygen (O2) saturation. Lungs clear. Heart: Regular rate and rhythm. Abdomen: Soft, nontender. IMPRESSION: Hypertension. PLAN: Her antihypertensives are on hold. She takes lisinopril 20 mg as an outpatient. Her pressures are low at this point, and I do not think her blood pressure medications need to be restarted. Dr. Salazar will be assuming her consultative care in the morning.
[2016-09-07] MEDS: ACETAMINOPHEN TAB 650MG DOSE (2X325MG) PO PRN (13:22)
[2016-09-07] MEDS ORDERED: LIDOCAINE 1% MDV 20ML VIAL As Ordered ONE (13:41)
[2016-09-07] MEDS ORDERED: LIDOCAINE 1% MDV 20ML VIAL SC ONE (14:15)
[2016-09-07] MEDS: MORPHINE 4 MG/ML 1ML SYRINGE IV PRN ×2 (16:12→21:16)
[2016-09-07] MEDS: ONDANSETRON 4MG/2ML VIAL (J2405) IV PRN (22:31)
[2016-09-08] MEDS: MORPHINE 4 MG/ML 1ML SYRINGE IV PRN ×4 (01:28→14:07)
[2016-09-08] MEDS: ceFAZolin SOD 1 GM in D5W MINI-BAG PLUS 50 ML IV SCH ×3 (01:28→10:45)
[2016-09-08 02:00] VITALS: BP 119/78
[2016-09-08 05:56] LABS: EOS % 0.2 % (0.0-3.0); LARGE UNSTAINED CELL # 0.1 K/mm3 (0.0-0.4); LARGE UNSTAINED CELL % 0.8 % (0.0-4.0); LYMPH # 2.8 K/mm3 (1.5-4.5); LYMPH % 19.6 % (24.0-44.0); MEAN CORPUSCULAR HEMOGLOBIN 29.9 pg (27.0-33.0); MEAN CORPUSCULAR HGB CONC 33.1 g/dl (32.0-36.5); MEAN CORPUSCULAR VOLUME 90.4 fl (80.0-96.0); MONO # 0.7 K/mm3 (0.0-0.8); NEUTROPHILS # 10.4 K/mm3 (1.8-7.7); NEUTROPHILS % 74.5 % (36.0-66.0); PLATELET COUNT, AUTOMATED 286 k/mm3 (150-450); RED CELL DISTRIBUTION WIDTH 12.5 % (11.5-14.5)
[2016-09-08 06:00] VITALS: BP 109/63
[2016-09-08 06:19] LABS: ALBUMIN 2.8 GM/DL (3.2-5.2); ALBUMIN/GLOBULIN RATIO 0.82 (1.00-1.93); ALKALINE PHOSPHATASE 65 U/L (45-117); ALT/SGPT 17 U/L (12-78); ANION GAP 5 MEQ/L (8-16); AST/SGOT 10 U/L (15-37); BILIRUBIN,TOTAL 0.2 MG/DL (0.2-1.0); BLOOD UREA NITROGEN 7 MG/DL (7-18); CALCIUM LEVEL 8.4 MG/DL (8.5-10.1); CARBON DIOXIDE LEVEL 29 MEQ/L (21-32); CHLORIDE LEVEL 104 MEQ/L (98-107); CREATININE FOR GFR 0.58 MG/DL (0.55-1.02); GLOMERULAR FILTRATION RATE > 60.0 (>51); GLUCOSE, FASTING 93 MG/DL (70-105); MAGNESIUM LEVEL 1.9 MG/DL (1.8-2.4); POTASSIUM SERUM 3.9 MEQ/L (3.5-5.1); SODIUM LEVEL 138 MEQ/L (136-145); TOTAL PROTEIN 6.2 GM/DL (6.4-8.2)
[2016-09-08] MEDS: BACLOFEN 10 MG TAB PO SCH ×3 (09:33→21:32)
[2016-09-08] MEDS: PERCOCET 5MG/325MG TAB PO PRN ×2 (10:55→16:05)
[2016-09-08 11:00] VITALS: BP 101/60
[2016-09-08] MEDS ORDERED: SENNA 8.6 MG TAB (SENOKOT) PO PRN (14:45)
--- NOTE | 2016-09-08 14:46 | IPN ---
DATE: 09/08/2016 SUBJECTIVE: Today, the patient tells me that she is having persistent back pain, which radiates down her leg. She denies chest pain, shortness of breath, fevers, chills, nausea, vomiting, or diarrhea. She otherwise denies any change in her status. OBJECTIVE: VITAL SIGNS: Maximum temperature (t-max) 100.6, pulse 78, respiratory rate 18, blood pressure 101/60, oxygen saturation 97% on room air. GENERAL: She is a very slim, female lying in bed on her right side. She appears in no distress. HEENT: Cranial nerves II through XII are grossly intact. She has moist mucous membranes. No elevation of central venous pressure. CARDIOVASCULAR EXAM: S1, S2 regular. RESPIRATORY EXAM: Clear. SKIN: Examination of her incision site revealed the dressing that is clean, dry and intact. Her surgical site appears to be closed and healing well. EXTREMITIES: No clubbing, cyanosis, or edema. LABORATORY STUDIES: WBC 14.0, continues to trend down from 19.1 at the time of arrival. Hemoglobin 10.6, hematocrit 32, platelet count 286. Chemistry panel: Sodium 138, potassium 3.9, chloride 104, bicarbonate 29, BUN 7, creatinine 0.5. Microbiology: Urine culture is negative. Respiratory panel is negative. Few red blood cells and no organisms seen on gram stain from wound culture. Blood cultures are negative thus far. IMAGING: The x-ray does not reveal any active disease. ASSESSMENT AND PLAN: This is a 55-year-old female who presented with sepsis syndrome status post operative drainage of a recent surgical site. 1. Hypertension. The patient is actually mildly hypotensive at this time. As such, would recommend holding her Lisinopril. 2. Sepsis syndrome. Antibiotics have been narrowed by Dr. Biggs. We will defer to neurosurgery regarding antibiotics. If the patient has recurrent or persistent fevers at this time, could consider infectious disease consultation. 3. Lung mass. Continue outpatient followup with pulmonary. 4. Constipation. THe patient is on MiraLAX and Senna. We will add these agents back as she is complaining of mild constipation today. 5. Deep vein thrombosis (DVT) prophylaxis with sequential compression device (SCD) and TEDs. Anticoagulation as per neurosurgery. We will continue following along. Thank you for involving us in this interesting patient's care.
[2016-09-08 15:00] VITALS: BP 131/76
[2016-09-08] MEDS: ACETAMINOPHEN TAB 650MG DOSE (2X325MG) PO PRN (15:59)
[2016-09-08] MEDS ORDERED: ceFAZolin SOD 1 GM in D5W MINI-BAG PLUS 50 ML IV SCH (17:00)
[2016-09-08 18:00] VITALS: BP 115/70
[2016-09-08] MEDS ORDERED: HYDROmorphone 2 MG TAB PO PRN (20:15)
[2016-09-08] MEDS ORDERED: KETOROLAC 30 MG/ML VIAL (J1885) IV ONE (20:30)
--- NOTE | 2016-09-08 21:20 | REPUSA ---
CLINICAL HISTORY: LEFT LEG NUMBNESS COMMENTS: Real time sonography with duplex doppler of the left lower extremity was performed with attention to the major deep venous structures. Evaluation reveals the left common femoral, superficial femoral and popliteal veins to be completely compressible without intraluminal thrombus. There is normal spontaneous phasic flow and augmentation. The greater saphenous/common femoral vein junction is patent. IMPRESSION: No evidence of DVT in left lower extremity.. Thank you for your kind referral of this patient.
[2016-09-08] MEDS: CETIRIZINE (ZyrTEC) 10 MG TAB PO SCH (21:31)
[2016-09-08 22:00] VITALS: BP 111/68
[2016-09-08] MEDS ORDERED: VANCOMYCIN HCL 1,000 MG, VIAL MATE ADAPTER 1 EACH in D5W 250 ML IV SCH (22:00)
--- NOTE | 2016-09-08 22:54 | PHACANCOPD ---
PHARMACY VANCOMYCIN DOSING Pt Demographics Demographics Patient Age:55 , Weight:49.000 , Gender: female Adjusted Body Weight Date: 09/08/16, Adjusted Body Weight: [49] Kg USING ACTUAL WT Vancomycin Vancomycin indication: Post-op wound infection Vancomycin Target Ranges: 15-20 mcg/ml Vancomycin Load Y/N: No Load Dose Date Time Vancomycin Load Dose: Date: Time: Vancomycin Dose Date: 09/08/16. Current Vancomycin Dose: [1 gm iv q12h] Intermittent Dosing?: No Labs Labs Laboratory Tests 09/08/16 05:18 Calcium Level 8.4 L, Aspartate Amino Transf (AST/SGOT) 10 L, Alanine Aminotransferase (ALT/SGPT) 17, Alkaline Phosphatase 65, Total Bilirubin 0.2, Total Protein 6.2 L, Albumin 2.8 L, Red Blood Count 3.54 L, Mean Corpuscular Volume 90.4, Mean Corpuscular Hemoglobin 29.9, Mean Corpuscular Hemoglobin Concent 33.1, Red Cell Distribution Width 12.5, Neutrophils (%) (Auto) 74.5 H, Lymphocytes (%) (Auto) 19.6 L, Monocytes (%) (Auto) 5.0, Eosinophils (%) (Auto) 0.2, Basophils (%) (Auto) 0.0, Neutrophils # (Auto) 10.4 H, Lymphocytes # (Auto ) 2.8, Monocytes # (Auto) 0.7, Eosinophils # (Auto) 0.0, Basophils # (Auto) 0.0 Micro Microbiology 09/06/16 Blood Culture - Preliminary, Resulted No Growth after 48 hours. All Specime... 09/06/16 Blood Culture - Preliminary, Resulted No Growth after 48 hours. All Specime... 09/06/16 Respiratory Virus Panel (PCR) ([facility]) - Final, Complete 09/06/16 Urine Culture - Final, Complete 09/06/16 Gram Stain - Final, Resulted 09/06/16 Body Fluid Culture, Resulted Pending 09/06/16 Anaerobic Culture, Resulted Pending Creatinine Clearance Date:09/08/16. Creatinine Clearance: [86.8].calculated Pending Labs Vancomycin trough ordered for 09/09@2100 Assessment and Plan Maintaining Current Dose?: Yes Reason for dose change: No Dose Change Pharmacist Note Pharmacist Note Date: 09/08/16. Pharmacist note:55 YO female w/post op wound infection ordered Meropenem 1 Gm iv q8h and Vancomycin per consult. Patient =49kg.SCR=0.58, calculated crcl=86.8. BMI=18.0. Vancomycin 1 gram iv q12h begun @2200 with trough ordered prior to the 3rd dose:will continue to follow SCR and levels [facility] Sep 08, 2016 22:54
[2016-09-08] MEDS: MEROPENEM INJ 1 GM in D5W MINI-BAG PLUS 100 ML IV SCH (23:59)
[2016-09-09] MEDS ORDERED: HYDROmorphone 2 MG TAB PO PRN ×2 (01:15→18:45)
[2016-09-09] MEDS ORDERED: HYDROmorphone 2 MG TAB PO ONE (01:15)
[2016-09-09 02:00] VITALS: BP 134/69
[2016-09-09] MEDS: HYDROmorphone 2 MG TAB PO PRN ×4 (05:42→20:02)
[2016-09-09 06:00] VITALS: BP 144/82
[2016-09-09] MEDS: MEROPENEM INJ 1 GM in D5W MINI-BAG PLUS 100 ML IV SCH (06:19)
[2016-09-09] MEDS: ONDANSETRON 4MG/2ML VIAL (J2405) IV PRN (06:23)
[2016-09-09 07:03] LABS: BASO % 0.3 % (0.0-1.0); EOS # 0.1 K/mm3 (0.0-0.50); EOS % 0.5 % (0.0-3.0); LARGE UNSTAINED CELL # 0.1 K/mm3 (0.0-0.4); LARGE UNSTAINED CELL % 1.3 % (0.0-4.0); LYMPH % 25.5 % (24.0-44.0); MEAN CORPUSCULAR HEMOGLOBIN 30.1 pg (27.0-33.0); MEAN CORPUSCULAR HGB CONC 33.1 g/dl (32.0-36.5); MONO # 0.6 K/mm3 (0.0-0.8); MONO % 5.2 % (0.0-5.0); NEUTROPHILS # 7.6 K/mm3 (1.8-7.7); NEUTROPHILS % 67.2 % (36.0-66.0); PLATELET COUNT, AUTOMATED 324 k/mm3 (150-450); RED CELL DISTRIBUTION WIDTH 12.5 % (11.5-14.5); WHITE BLOOD COUNT 11.3 K/mm3 (4.0-10.0)
[2016-09-09 07:16] LABS: ALBUMIN 2.9 GM/DL (3.2-5.2); ALBUMIN/GLOBULIN RATIO 0.78 (1.00-1.93); ALKALINE PHOSPHATASE 70 U/L (45-117); ALT/SGPT 17 U/L (12-78); ANION GAP 6 MEQ/L (8-16); AST/SGOT 10 U/L (15-37); BILIRUBIN,TOTAL 0.3 MG/DL (0.2-1.0); BLOOD UREA NITROGEN 8 MG/DL (7-18); CALCIUM LEVEL 8.9 MG/DL (8.5-10.1); CARBON DIOXIDE LEVEL 29 MEQ/L (21-32); CHLORIDE LEVEL 102 MEQ/L (98-107); CREATININE FOR GFR 0.63 MG/DL (0.55-1.02); GLOMERULAR FILTRATION RATE > 60.0 (>51); GLUCOSE, FASTING 103 MG/DL (70-105); MAGNESIUM LEVEL 1.8 MG/DL (1.8-2.4); SODIUM LEVEL 137 MEQ/L (136-145); TOTAL PROTEIN 6.6 GM/DL (6.4-8.2)
[2016-09-09] MEDS ORDERED: MORPHINE 2 MG/ML 1ML SYRINGE As Ordered ONE (08:07)
[2016-09-09] MEDS ORDERED: ONDANSETRON 4MG/2ML VIAL (J2405) IV PRN (08:15)
[2016-09-09] MEDS: BACLOFEN 10 MG TAB PO SCH ×3 (08:33→20:02)
[2016-09-09] MEDS: MIRALAX *UNIT DOSE* 17GM PACKET PO PRN (08:34)
[2016-09-09] MEDS: GABAPENTIN 300 MG CAP PO SCH ×3 (08:34→20:02)
[2016-09-09] MEDS: FLEET ENEMA PR PRN (08:38)
[2016-09-09] MEDS ORDERED: MORPHINE 2 MG/ML 1ML SYRINGE IV ONE (08:45)
[2016-09-09] MEDS ORDERED: ONDANSETRON 4MG/2ML VIAL (J2405) IV ONE (08:45)
[2016-09-09] MEDS: NAFCILLIN SOD 2 GM in D5W MINI-BAG PLUS 100 ML IV SCH ×4 (09:50→21:51)
[2016-09-09 10:00] VITALS: BP 126/72
[2016-09-09 14:00] VITALS: BP 146/77
--- NOTE | 2016-09-09 14:31 | IPNPDOC ---
Date Seen The patient was seen on 09/09/16. Progress Note SUBJECTIVE: Patient complains of pain in the low back as well as headache more severe than yesterday she also continues to complain that the pain in her back radiates down her left leg OBJECTIVE PHYSICAL EXAMINATION: VITAL SIGNS: Please see below. GENERAL: Frail skin a female lying in bed on her right side she appears to be mildly uncomfortable but in no acute distress HEENT: Was likely round reactive to light CARDIOVASCULAR: S1-S2. RESPIRATORY: Clear to auscultation. ABDOMINAL: Benign EXTREMITIES: Cyanosis or edema her dressing is clean dry and intact LABORATORY DATA: Please see below. MICROBIOLOGY: Please see below. IMAGING: Patient had a duplex of the left lower extremity on 09/07/2016 that did not reveal any DVT ASSESSMENT AND PLAN: This is a 55-year-old Female who presented with sepsis syndrome status post operative drainage of a recent surgical site. PROBLEMS: 1. Hypertension: Patient is mildly hypertensive but it seems that this is likely related to pain at the present time I would not restart her lisinopril also continue to monitor once her pain is under control if she remains hypertensive would restart lisinopril at that time. 2. Sepsis syndrome: Dr. russell of infectious diseases on the case and he biotics have been broadened and then narrowed based on her cultures that help is greatly appreciated. 3. Lung mass: Follow-up with a full pulmonary outpatient. 4. Constipation: Continue with current bowel regimen We'll continue to follow along with you regarding this patient please call with specific questions VS, I&O, 24H, Fishbone Vital Signs/I&O Vital Signs Date Time Temp Pulse Resp B/P Pulse Ox O2 Delivery O2 Flow Rate FiO2 09/09/16 11:27 20 09/09/16 10:57 Room Air 09/09/16 10:00 98.0 86 126/72 100 09/07/16 03:25 2.0 I&O- Last 24 Hours up to 6 AM 09/09/16 06:00 Intake Total 2340 ml Output Total 1950 ml Balance 390 ml Laboratory Data 24H LABS Laboratory Tests 2 09/09/16 06:37: Blood Urea Nitrogen 8, Creatinine 0.63, Sodium Level 137, Potassium Level 4.0, Chloride Level 102, Carbon Dioxide Level 29, Calcium Level 8.9, Aspartate Amino Transf (AST/SGOT) 10L, Alanine Aminotransferase (ALT/SGPT) 17, Alkaline Phosphatase 70, Total Bilirubin 0.3, Total Protein 6.6, Albumin 2.9L, Albumin/ Globulin Ratio 0.78L, Anion Gap 6L, White Blood Count 11.3H, Red Blood Count 3.68L, Hemoglobin 11.1L, Hematocrit 33.5L, Mean Corpuscular Volume 91.0, Mean Corpuscular Hemoglobin 30.1, Mean Corpuscular Hemoglobin Concent 33.1, Red Cell Distribution Width 12.5, Platelet Count 324, Neutrophils (%) (Auto) 67.2H, Lymphocytes (%) (Auto) 25.5, Monocytes (%) (Auto) 5.2H, Eosinophils (%) (Auto) 0.5, Basophils (%) (Auto) 0.3, Neutrophils # (Auto) 7.6, Lymphocytes # (Auto) 3.0, Monocytes # (Auto) 0.6, Eosinophils # (Auto) 0.1, Basophils # (Auto) 0.0, C -Reactive Protein, Quantitative 5.47H, Glomerular Filtration Rate > 60.0, Large Unclassified Cells # 0.1, Large Unclassified Cells % 1.3, Magnesium Level 1.8 CBC/BMP Laboratory Tests 09/09/16 06:37 Calcium Level 8.9, Aspartate Amino Transf (AST/SGOT) 10 L, Alanine Aminotransferase (ALT/SGPT) 17, Alkaline Phosphatase 70, Total Bilirubin 0.3, Total Protein 6.6, Albumin 2.9 L, Red Blood Count 3.68 L, Mean Corpuscular Volume 91.0, Mean Corpuscular Hemoglobin 30.1, Mean Corpuscular Hemoglobin Concent 33.1, Red Cell Distribution Width 12.5, Neutrophils (%) (Auto) 67.2 H, Lymphocytes (%) (Auto) 25.5, Monocytes (%) (Auto) 5.2 H, Eosinophils (%) (Auto) 0.5, Basophils (%) (Auto) 0.3, Neutrophils # (Auto) 7.6, Lymphocytes # (Auto) 3.0, Monocytes # (Auto) 0.6, Eosinophils # (Auto) 0.1, Basophils # (Auto) 0.0 Microbiology Microbiology 09/06/16 Blood Culture - Preliminary, Resulted No Growth after 48 hours. All Specime... 09/06/16 Blood Culture - Preliminary, Resulted No Growth after 48 hours. All Specime... 09/06/16 Respiratory Virus Panel (PCR) ([facility]) - Final, Complete 09/06/16 Urine Culture - Final, Complete 09/06/16 Gram Stain - Final, Complete 09/06/16 Body Fluid Culture - Final, Complete Staphylococcus Aureus 09/06/16 Anaerobic Culture - Final, Complete MARIA ISABEL CHAVEZ MD Sep 09, 2016 14:31
[2016-09-09] MEDS: ACETAMINOPHEN TAB 650MG DOSE (2X325MG) PO PRN (17:06)
[2016-09-09 18:00] VITALS: BP 133/88
--- NOTE | 2016-09-09 18:27 | REP ---
MRI LUMBAR SPINE WITHOUT CONTRAST: HISTORY: Fever. CONTRAST: ProHance 9.8 mL. COMPARISON: 09/05/2016 Decreased signal intensity on T2-weighted images is present in the L4-5 intervertebral discs. The disc is decreased in height. These findings are consistent with disc degeneration. There is no disc bulge or herniation at the L1-2 and L2-3 level. The nerves exit the neural foramina without compression. A fluid collection is present in the posterior spinal canal. This extends from the L1-2 level inferior to the L5 vertebral body. The fluid collection measures 1.3 cm in transverse x 11 cm in cephalocaudal dimensions. This appears to be epidural or subdural in location. There is minimal to mild mass effect on the cauda equina. A diffuse disc bulge is present at the L4-5 level. There is minimal compression of the thecal sac. The L4 nerves exit the neural foramina without compression. A left laminectomy defect is present. A very small 4 mm fluid collection is present in the left anterior aspect of the spinal canal. There is minimal mass effect on the thecal sac. A small amount of enhancing granulation tissue is present at the laminectomy site and in the lateral aspect of the spinal canal. A diffuse disc bulge is present at the L5-S1 level. There is minimal compression of the thecal sac. There is hypertrophy of the posterior articulating facets. The L5 nerves exit the neural foramina without compression. The conus medullaris is normal in appearance terminating at the level of the L1-2 intervertebral discs. Normal signal intensity is present in the lumbar vertebral bodies. Edema is present in the overlying posterior subcutaneous tissue. This measures 13 cm in transverse x 1 cm in AP x 12 cm in cephalocaudal dimensions and is decreased compared to the previous study. IMPRESSION: 1. The patient is status-post L4-5 laminectomy. A disc bulge is present. A small 4 mm fluid collection is present in the left anterior aspect of the spinal canal. There is minimal thecal sac compression. A small amount of granulation tissue is present at the laminectomy site and in the lateral aspect of the spinal canal. 2. There is a fluid collection in the posterior spinal canal that appears to be subdural or epidural in location. This extends from the L1-2 level inferior to L5. There is minimal to mild mass effect on the cauda equina. Signed by Kushal Browning MD 09/10/2016 09:05 A
--- NOTE | 2016-09-09 19:58 | CR ---
DATE OF CONSULTATION: 09/09/2016 ATTENDING PHYSICIAN: Dr. Magaly Forbes REFERRING PHYSICIAN: Dr. Derik Biggs REASON FOR CONSULTATION: Antibiotic therapy. HISTORY OF PRESENT ILLNESS: This is a 55-year-old female with a past medical history significant for lumbar laminectomy on 08/26/2016, gastroesophageal reflux disease (GERD), depression, chronic pain, seizure disorder, and hypertension. She was seen in the emergency department on 09/05/2016 with complaints of back pain over the incision site of the lumbar laminectomy procedure completed on 08/26/2016. An MRI of her spine was completed at the time which showed no epidural fluid. The patient was sent home afterwards. She returned to the emergency department the following day on 09/06/2016. At that time, she was having fevers and also having increasing low back pain in that site and also associated leg pain on her left leg. She was documented to have a 101.6 fever in the emergency room (ER). Her pain was getting worse when she walked. She also had radiating headaches to her temples. She was also complaining of nausea and vomiting. Blood work was completed which showed a white blood cell count of 19.1. Neurosurgery saw the patient and brought her to the operating room for a wound exploration over the site in her low back. They brought her to the operating room on 09/06/2016 for wound exploration and debridement. They drained serosanguineous fluid and noted that there was no cerebrospinal fluid (CSF) leak. A day following this procedure, the patient was still persisting with a headache. She received an occipital block on 09/07/2016, which relieved her headaches. Two days following the back procedure, the patient complained of persistent back pain and left leg pain. She also continued to have temperatures as high as 100.6. She persisted in having a white blood cell count of 14 that day. Her back pain and leg pain were worsening with ambulation. The patient was started on antibiotics, cephazolin on 09/06/2016. She received the antibiotic for a total of three days. Cultures were obtained from the site during the procedure on 09/06/2016, which were positive for methicillin- sensitive Staphylococcus aureus (MSSA). The patient has negative blood cultures. The patient was seen this morning at bedside. She appeared to be uncomfortable. She was currently on a regimen of hydromorphone, which did not seem to be relieving her pain. She reports having a history of having skin infections after her hysterectomy in 2007. She also complains about having frequent follicular infections on the back of her neck. She currently complains about intense low back pain and also left leg pain. This pain has been getting worse for the last several days after the operation. ALLERGIES: LATEX, MORPHINE. HOME MEDICATIONS: - baclofen 20 mg three times a day - cetirizine 10 mg at night - lisinopril 20 mg at night - MiraLax 17 grams at night - Senna 8.6 mg two tablets every night - Percocet 5/325 mg every six hours as needed for pain PAST MEDICAL HISTORY: 1. Hypertension. 2. History of lung mass which she follows with pulmonary. 3. 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 PAST SURGICAL HISTORY: 1. Laminectomy 08/26 2016. 2. Right shoulder repair in 1995. 3. Hysterectomy in 2007. 4. Tonsillectomy. FAMILY HISTORY: Mother has a history of pulmonary embolism. Father has a history of myocardial infarction. SOCIAL HISTORY: Denies any current alcohol, tobacco, or illicit drug use. No recent sick contacts. She lives with her . REVIEW OF SYSTEMS: CONSTITUTIONAL: Denies any recent weight changes. HEENT: No visual changes. No nasal congestion. No ear pain. Admits to headaches which resolved. CARDIOVASCULAR: Denies chest pain. RESPIRATORY: Denies any shortness of breath or wheezing. GASTROINTESTINAL: Positive for nausea and has not had a bowel movement since being admitted. Denies any diarrhea or abdominal pain. MUSCULOSKELETAL: Low back pain and left leg pain. NEUROLOGIC: Has left leg weakness. No other sensory loss or weaknesses. SKIN: No current skin lesions or rashes. PHYSICAL EXAMINATION: VITAL SIGNS: Temperature 99.6, maximum temperature (T-max) in the last 24 hours was 100.7, respiratory rate 20, pulse 92, blood pressure is 144/82, pulse oximetry is 96% on room air. GENERAL: She is in moderate distress on the bed. Appears to be uncomfortable. She is alert and oriented. HEENT: Normocephalic, atraumatic. Her extraocular movements are intact bilaterally. Mucous membranes are moist. CARDIOVASCULAR: Regular rate and rhythm. No murmurs appreciated. LUNGS: Good air entry bilaterally. Clear to auscultation. No wheezing appreciated. ABDOMEN: Soft, nontender, nondistended. Normoactive bowel sounds are heard throughout. EXTREMITIES: 2+ radial pulse and pedal pulse. No lower extremity edema. NEUROLOGIC: Cranial nerves II-XII are grossly intact. No sensory deficits. SKIN: She has a midline lumbar incision with some serosanguineous drainage noted on dressing. She does have erythema on the site, but no surrounding skin redness. LABORATORY FINDINGS: WBC is 11.3, hemoglobin 11.1, hematocrit 33.5, platelet count is 324. Sodium 137, potassium 4.0, chloride 102, carbon dioxide 29, BUN is 8, creatinine is 0.63, fasting glucose is 103, magnesium 1.8, AST 10, ALT 17. C-reactive protein 5.47, ESR is 444. Wound drainage culture was positive for MSSA completed on 09/06/2016. Respiratory panel completed on 09/06/2016 was negative. Urine culture completed on 09/06/2016 had no growth. Blood cultures are negative for growth after 48 hours. ASSESSMENT AND PLAN: This is a 55-year-old female with postoperative infection and fevers. 1. Postoperative infection. Cultures were positive for methicillin-sensitive Staphylococcus aureus (MSSA). At this time, we will discontinue the patient on cephazolin, vancomycin, and meropenem. We will start the patient on nafcillin 2 grams IV every four hours. She does appear to be uncomfortable from her low back. We will start the patient on gabapentin 300 mg three times a day for better pain control. A one-time 2 mg IV dose of morphine was given with Zofran for nausea. She does report having allergies to morphine, mainly being nausea and vomiting, but she reports tolerating morphine if given Zofran. We will increase her Zofran to 8 mg IV every six hours as needed for nausea and vomiting. She is also scheduled to have a lumbar spine MRI today and we will review the results when available. 2. Constipation. The patient does not recall when she had a last bowel movement. There is a possibility that she is constipated. She discussed with another provider earlier that having a bowel movement may relieve some of the discomfort that she is having. We will order a Fleet's enema at this time with the possibility that it may relieve her back pain if she has a bowel movement. 3. Leukocytosis. The patient continues to have an elevated white count at 11.3 today. It is gradually trending downward. We will continue to monitor. The patient still continues to have fevers. The patient will be continued on acetaminophen for fevers and also on antibiotics. My preceptor for this patient encounter was Dr. Magaly Forbes. The preceptor was physically present in the building during the encounter and was fully available as needed. All aspects of the patient interview, examination, medical decision making process, and medical care plan development were reviewed and approved by the preceptor. The preceptor is aware and concurs with the plan as stated in the body of this note and will attest to such by his/her co-signature. CAMRON
[2016-09-09] MEDS: CETIRIZINE (ZyrTEC) 10 MG TAB PO SCH (20:02)
[2016-09-09] MEDS: SENNA 8.6 MG TAB (SENOKOT) PO SCH (21:51)
[2016-09-09 22:00] VITALS: BP 121/85
[2016-09-10] VITALS (11 sets, daily range): BP systolic 131–178; BP diastolic 77–110
[2016-09-10] MEDS: HYDROmorphone 2 MG TAB PO PRN (00:23)
[2016-09-10] MEDS: KCL 20MEQ IN D5/0.45NS 1000ML 1,000 ML IV SCH ×3 (00:23→20:00)
[2016-09-10] MEDS ORDERED: ISOVUE-370 76% 100ML VIAL (Q9967) As Ordered ONE (01:25)
[2016-09-10] MEDS: NAFCILLIN SOD 2 GM in D5W MINI-BAG PLUS 100 ML IV SCH ×7 (02:15→21:25)
--- NOTE | 2016-09-10 02:20 | REPUSA ---
CLINICAL HISTORY: Tingling. TECHNIQUE: Multiple axial brain CT scan sections were obtained from base to vertex without contrast a dministration. COMMENTS: The study shows normal configuration of sella turcica. There are no intra or extra-axial collections. There is no mass effect or midline shift. There is no evidence of hematoma formation. No hydrocephal us is present. No abnormal calcifications are noted. No significant abnormalities are seen either in the posterior fossa or supratentorial compartment. Secretions in the left sphenoid sinus. Chronic mucosal inflammatory changes in the ethmoid air cells. IMPRESSION: Left sphenoid sinusitis. No evidence of acute intracranial pathology. Thank you for your kind referral of this patient.
[2016-09-10] MEDS: FLEET ENEMA PR PRN (02:25)
[2016-09-10] MEDS ORDERED: MORPHINE 2 MG/ML 1ML SYRINGE IV ONE ×3 (02:30→05:15)
--- NOTE | 2016-09-10 02:30 | REPUSA ---
CLINICAL HISTORY: Neck pain. TECHNIQUE: Multiple axial images were obtained through the cervical spine. Images were also reconstru cted in coronal and sagittal planes. The study was performed without IV contrast. COMMENTS: There is no fracture or spondylolisthesis visualized. The paraspinal soft tissues are unremarkable. T here are no lytic or blastic lesions. Straightening of cervical lordosis is seen, suggesting muscular spasm. There is evidence of multileve l disk disease, demonstrated by osteophytosis and endplate sclerosis. IMPRESSION: 1. No fracture or spondylolisthesis. 2. Straightening of cervical lordosis is seen, suggesting muscular spasm. 3. Multilevel spondylosis. Thank you for your kind referral of this patient.
--- NOTE | 2016-09-10 02:40 | REPUSA ---
CLINICAL HISTORY: Back pain. TECHNIQUE: Multiple axial images were obtained through the L1-L2, L2-L3, L3-L4, L4-L5 and L5-S1 inter spaces. Images were also reconstructed in coronal and sagittal planes. Postcontrast images are provid ed. COMMENTS: There is no fracture visualized. The paraspinal soft tissues are unremarkable. There are no lytic or blastic lesions. Straightening of lumbar lordosis is seen, suggesting muscular spasm. There is evidence of multilevel disk disease, demonstrated by osteophytosis ad endplate sclerosis. Evaluation of individual levels reveals the following: At L4-L5 and L5-S1, broad-based disk protrusion in conjunction with hypertrophic facet disease result s in moderate bilateral foraminal narrowing.Canal is mildly stenotic. Left laminectomy at L4-L5. Soft tissue thickening in the surgical bed extending to the left anterolateral recess of the spinal canal suggestive of epidural fibrosis with encasement of the left L5 nerve root within the anterolateral r ecess of the canal. At L3-L4, broad-based disk bulge, results in mild bilateral foraminal narrowing. Canal is patent. L1-L2 and L2-L3 levels are unremarkable. IMPRESSION: 1. No fracture or spondylolisthesis. 2. Straightening of lumbar lordosis is seen, suggesting muscular spasm. 3. Left laminectomy at L4-L5. Associated soft tissue thickening suggestive of epidural fibrosis. Enca sement and thickening of the exiting left L5 nerve root within the left anterolateral recess of the s garrison canal. Thank you for your kind referral of this patient.
--- NOTE | 2016-09-10 02:40 | REPUSA ---
CLINICAL HISTORY: Pain. TECHNIQUE: Multiple axial CT images were obtained through the thoracic spine without IV contrast mate rial. MPR coronal and sagittal sequences were obtained. COMMENTS: Mild diffuse spondylotic changes. There is no fracture visualized. The paraspinal soft tissues are unremarkable. There are no lytic or blastic lesions. The paravertebral soft tissue space is normal. IMPRESSION: Mild spondylosis. Thank you for your kind referral of this patient.
[2016-09-10] MEDS ORDERED: MORPHINE 4 MG/ML 1ML SYRINGE IV PRN (03:00)
[2016-09-10] MEDS: ACETAMINOPHEN TAB 650MG DOSE (2X325MG) PO PRN (04:48)
[2016-09-10 07:36] LABS: BASO % 0.1 % (0.0-1.0); EOS # 0.1 K/mm3 (0.0-0.50); EOS % 0.7 % (0.0-3.0); LARGE UNSTAINED CELL # 0.1 K/mm3 (0.0-0.4); LARGE UNSTAINED CELL % 1.3 % (0.0-4.0); LYMPH # 2.6 K/mm3 (1.5-4.5); LYMPH % 26.2 % (24.0-44.0); MEAN CORPUSCULAR HEMOGLOBIN 29.5 pg (27.0-33.0); MEAN CORPUSCULAR VOLUME 89.4 fl (80.0-96.0); MONO # 0.5 K/mm3 (0.0-0.8); MONO % 5.2 % (0.0-5.0); NEUTROPHILS # 6.6 K/mm3 (1.8-7.7); NEUTROPHILS % 66.5 % (36.0-66.0); PLATELET COUNT, AUTOMATED 356 k/mm3 (150-450); RED CELL DISTRIBUTION WIDTH 12.5 % (11.5-14.5)
[2016-09-10 07:40] LABS: INR 0.93
[2016-09-10] MEDS ORDERED: THROMBIN SOLN 20,000 UNITS KIT As Ordered ONE (07:40)
[2016-09-10] MEDS ORDERED: methylPREDNISolone SUSP 40 MG/ML (DEPO-medrol) VIAL (J1030) As Ordered ONE (07:40)
[2016-09-10] MEDS ORDERED: BACITRACIN PWD 50,000 UNITS VIAL As Ordered ONE ×2 (07:41→11:03)
[2016-09-10 08:09] LABS: ALBUMIN 2.8 GM/DL (3.2-5.2); ALBUMIN/GLOBULIN RATIO 0.74 (1.00-1.93); ALKALINE PHOSPHATASE 72 U/L (45-117); ALT/SGPT 14 U/L (12-78); ANION GAP 7 MEQ/L (8-16); AST/SGOT 8 U/L (15-37); BILIRUBIN,TOTAL 0.5 MG/DL (0.2-1.0); BLOOD UREA NITROGEN 5 MG/DL (7-18); CALCIUM LEVEL 8.7 MG/DL (8.5-10.1); CARBON DIOXIDE LEVEL 28 MEQ/L (21-32); CHLORIDE LEVEL 105 MEQ/L (98-107); CREATININE FOR GFR 0.52 MG/DL (0.55-1.02); GLOMERULAR FILTRATION RATE > 60.0 (>51); GLUCOSE, FASTING 119 MG/DL (70-105); MAGNESIUM LEVEL 2.1 MG/DL (1.8-2.4); SODIUM LEVEL 140 MEQ/L (136-145); TOTAL PROTEIN 6.6 GM/DL (6.4-8.2)
--- NOTE | 2016-09-10 08:29 | REP ---
Clinical: Excision of cyst. Technique: AP and lateral views of the lumbosacral spine. Comparison: 08/26/2016. Findings: Alignment is maintained. Vertebral bodies are intact. No acute fracture / compression injury or subluxation. Disc spaces are stable. Impression: Satisfactory alignment. No acute fracture / compression injury or subluxation. Signed by Norberto Flores MD 09/10/2016 08:21 A
[2016-09-10] MEDS: BACLOFEN 10 MG TAB PO SCH ×3 (09:17→20:27)
[2016-09-10] MEDS: GABAPENTIN 300 MG CAP PO SCH ×3 (09:17→20:27)
[2016-09-10] MEDS: SENNA 8.6 MG TAB (SENOKOT) PO SCH ×2 (09:17→20:27)
[2016-09-10] MEDS ORDERED: LIDOCAINE 2% INJ 100 MG/5 ML SDV (FOR ANES.) As Ordered ONE (09:46)
[2016-09-10] MEDS ORDERED: PROPOFOL 200 MG/20 ML VIAL As Ordered ONE (09:46)
[2016-09-10] MEDS ORDERED: fentaNYL 250 MCG/5 ML INJECTION (J3010) As Ordered ONE (09:46)
[2016-09-10] MEDS ORDERED: ROCURONIUM BROMIDE 50 MG/5 ML VIAL As Ordered ONE (09:46)
[2016-09-10] MEDS ORDERED: MIDAZOLAM INJ 2 MG/2 ML VIAL (J2250) As Ordered ONE ×2 (09:46→16:50)
[2016-09-10] MEDS ORDERED: NAFCILLIN SOD 1 GM VIAL (S0032) As Ordered ONE ×2 (10:32→14:17)
[2016-09-10] MEDS ORDERED: HYDROmorphone HCL 2 MG/ML 1ML VIAL (J1170) As Ordered ONE (12:53)
[2016-09-10] MEDS ORDERED: GLYCOPYRROLATE INJ 0.2 MG/ML 2 ML VIAL As Ordered ONE (12:56)
[2016-09-10] MEDS ORDERED: ONDANSETRON 4MG/2ML VIAL (J2405) As Ordered ONE (12:56)
[2016-09-10] MEDS ORDERED: NEOSTIGMINE 1MG/ML 5 ML SYRINGE (J2710) As Ordered ONE (12:58)
--- NOTE | 2016-09-10 12:59 | IPNPDOC ---
Date Seen The patient was seen on 09/10/16. Progress Note SUBJECTIVE: Patient complains of continued pain in the low back as well as continued headache. She complains of worsening "numbness and tingling" in the left leg as well as weakness which is new in the left leg associated with a new burning pain. OBJECTIVE PHYSICAL EXAMINATION: VITAL SIGNS: Please see below. GENERAL: Frail skin a female lying in bed on her right side she appears to be mildly uncomfortable but in no acute distress HEENT: pupils round reactive to light CARDIOVASCULAR: S1-S2. RESPIRATORY: Clear to auscultation. ABDOMINAL: Benign EXTREMITIES: Cyanosis or edema her dressing is clean dry and intact, 4/5 strength LLE LABORATORY DATA: Please see below. MICROBIOLOGY: Please see below. IMAGING: Patient had a duplex of the left lower extremity on 09/07/2016 that did not reveal any DVT Radiographic imaging reports reviewed ASSESSMENT AND PLAN: This is a 55-year-old Female who presented with sepsis syndrome status post operative drainage of a recent surgical site. PROBLEMS: 1. Hypertension: Patient is mildly hypertensive but it seems that this is likely related to pain at the present time I would not restart her lisinopril also continue to monitor once her pain is under control if she remains hypertensive would restart lisinopril at that time. 2. Sepsis syndrome: Dr. Forbes of infectious diseases is on the case and antibiotics have been broadened and then narrowed based on her cultures. ID team help is greatly appreciated. Imaging does reveal a fluid collection given that the patient has worsening of her neurologic symptoms and pain over the last 24 hours I suspect the patient may benefit from exploration and drainage of this fluid I have contacted Dr. Biggs regarding this as well as Dr. Forbes. The patient understands that this could potentially be a very risky procedure with catastrophic sequelae as outlined in detail to her by Dr. Biggs previously 3. Lung mass: Follow-up with a full pulmonary outpatient. 4. Constipation: Continue with current bowel regimen We'll continue to follow along with you regarding this patient. VS, I&O, 24H, Fishbone Vital Signs/I&O Vital Signs Date Time Temp Pulse Resp B/P Pulse Ox O2 Delivery O2 Flow Rate FiO2 09/10/16 09:00 20 09/10/16 06:47 98.3 82 140/96 09/10/16 06:00 97 Room Air 09/07/16 03:25 2.0 I&O- Last 24 Hours up to 6 AM 09/10/16 06:00 Intake Total 1875 ml Output Total 2500 ml Balance -625 ml Laboratory Data 24H LABS Laboratory Tests 2 09/10/16 07:14: Blood Urea Nitrogen 5L, Creatinine 0.52L, Sodium Level 140, Potassium Level 4.0 , Chloride Level 105, Carbon Dioxide Level 28, Calcium Level 8.7, Aspartate Amino Transf (AST/SGOT) 8L, Alanine Aminotransferase (ALT/SGPT) 14, Alkaline Phosphatase 72, Total Bilirubin 0.5#, Total Protein 6.6, Albumin 2.8L, Albumin/ Globulin Ratio 0.74L, Anion Gap 7L, White Blood Count 10.0, Red Blood Count 3.76L, Hemoglobin 11.1L, Hematocrit 33.6L, Mean Corpuscular Volume 89.4, Mean Corpuscular Hemoglobin 29.5, Mean Corpuscular Hemoglobin Concent 33.0, Red Cell Distribution Width 12.5, Platelet Count 356, Neutrophils (%) (Auto) 66.5H, Lymphocytes (%) (Auto) 26.2, Monocytes (%) (Auto) 5.2H, Eosinophils (%) (Auto) 0.7, Basophils (%) (Auto) 0.1, Neutrophils # (Auto) 6.6, Lymphocytes # (Auto) 2.6, Monocytes # (Auto) 0.5, Eosinophils # (Auto) 0.1, Basophils # (Auto) 0.0, C -Reactive Protein, Quantitative 4.97H, Glomerular Filtration Rate > 60.0, Large Unclassified Cells # 0.1, Large Unclassified Cells % 1.3, Magnesium Level 2.1 09/10/16 07:15: Activated Partial Thromboplast Time 34.4, Prothromb Time International Ratio 0.93, Prothrombin Time 12.6 CBC/BMP Laboratory Tests 09/10/16 07:14 Calcium Level 8.7, Aspartate Amino Transf (AST/SGOT) 8 L, Alanine Aminotransferase (ALT/SGPT) 14, Alkaline Phosphatase 72, Total Bilirubin 0.5 #, Total Protein 6.6, Albumin 2.8 L, Red Blood Count 3.76 L, Mean Corpuscular Volume 89.4, Mean Corpuscular Hemoglobin 29.5, Mean Corpuscular Hemoglobin Concent 33.0, Red Cell Distribution Width 12.5, Neutrophils (%) (Auto) 66.5 H, Lymphocytes (%) (Auto) 26.2, Monocytes (%) (Auto) 5.2 H, Eosinophils (%) (Auto) 0.7, Basophils (%) (Auto) 0.1, Neutrophils # (Auto) 6.6, Lymphocytes # (Auto) 2.6, Monocytes # (Auto) 0.5, Eosinophils # (Auto) 0.1, Basophils # (Auto) 0.0 Microbiology Microbiology 09/06/16 Blood Culture - Preliminary, Resulted No Growth after 72 hours. All specime... 09/06/16 Blood Culture - Preliminary, Resulted No Growth after 72 hours. All specime... 09/06/16 Respiratory Virus Panel (PCR) ([facility]) - Final, Complete 09/06/16 Urine Culture - Final, Complete 09/06/16 Gram Stain - Final, Complete 09/06/16 Body Fluid Culture - Final, Complete Staphylococcus Aureus 09/06/16 Anaerobic Culture - Final, Complete MARIA ISABEL CHAVEZ MD Sep 10, 2016 12:59
--- NOTE | 2016-09-10 13:39 | REP ---
PARTIAL LUMBAR SPINE, TWO VIEWS: HISTORY: Spinal cyst. Two portable lateral radiographs of the lumbar spine were obtained. The second radiograph demonstrates a metal clamp overlying the neural arch at the L2-3 level. Signed by Kushal Browning MD 09/10/2016 01:45 P
[2016-09-10] MEDS ORDERED: dexameTHASONE 4 MG/ML 1ML VIAL (J1100) As Ordered ONE (15:38)
[2016-09-10] MEDS ORDERED: HYDROmorphone HCL 1 MG/ML SYRINGE (J1170) As Ordered ONE ×2 (17:28→17:49)
[2016-09-10] MEDS: HYDROmorphone HCL 1 MG/ML SYRINGE (J1170) IV PRN ×4 (17:35→18:07)
[2016-09-10] MEDS ORDERED: PERCOCET 5MG/325MG TAB PO PRN (17:45)
[2016-09-10] MEDS ORDERED: fentaNYL 100 MCG/2 ML INJECTION (J3010) IV PRN (17:45)
[2016-09-10] MEDS ORDERED: LR 1,000 ML IV SCH (17:45)
[2016-09-10] MEDS ORDERED: NALBUPHINE HCL 10 MG/ML AMP (J2300) IV PRN ×2 (18:00)
[2016-09-10] MEDS ORDERED: MORPHINE 2 MG/ML 1ML SYRINGE IV PRN (18:00)
[2016-09-10] MEDS ORDERED: HYDROmorphone HCL 1 MG/ML SYRINGE (J1170) IV PRN (19:15)
[2016-09-10] MEDS ORDERED: HYDROmorphone 2 MG TAB PO PRN ×2 (19:15)
[2016-09-10] MEDS: CETIRIZINE (ZyrTEC) 10 MG TAB PO SCH (20:27)
[2016-09-10] MEDS: MORPHINE 2 MG/ML 1ML SYRINGE IV PRN (21:25)
[2016-09-10] MEDS: HYDROmorphone HCL 2 MG/ML 1ML VIAL (J1170) IV PRN (22:29)
--- NOTE | 2016-09-11 00:39 | RO ---
DATE OF PROCEDURE: 09/10/2016 PREOPERATIVE DIAGNOSIS: Subarachnoid fluid collection L2-3 through L3-L4. POSTOPERATIVE DIAGNOSIS: Loculated subarachnoid cyst from L2 through L4. PROCEDURE: L2 through L4 bilateral decompression with lysis of perineural fibrosis and drainage of loculated subarachnoid cyst. SURGEON: Dr. Derik Biggs QUALITY MANAGEMENT COORDINATOR; Bree Grayson PA-C ANESTHESIA: General. FINDINGS: Please see my recent hospital record for detailed preoperative evaluation and discussions. The patient underwent lumbar laminectomy and decompression on the right at L4-L5 on 08/26/2016 and several days after was admitted through the emergency room on account of postoperative fever and a lump in her incision. The wound exploration was done where no obvious purulence was identified, though the culture eventually did show Staphylococcus (Staph) infection, and she was treated accordingly by the infectious disease service. She continued to complain of postoperative pain of varying severity. Repeat MRI showed a fluid collection in the subdural space, L2-L4. This was not enhancing on the MRI. The patient and her were aware of all options, risks, scope, expected outcome, sequelae and complications of the proposed procedure, and a family conference was held in the preoperative area. Family understood the scope and the salvage nature of the exploration. The patient and her family understood the risk of surgery includes , quadriplegia, coma, seizure disorder, cerebrospinal fluid (CSF) leak, loss of any or all vital bodily functions, infection, bleeding, quadriplegia, dependency on life support measures and/or any catastrophic sequelae. The patient stated that she is willing to take any or all risk for any possible benefit. She would like to have the decompression done. The patient and her had followup instructions. After all matters pertaining to surgery, anesthesia and followup care were discussed with them, she was taken to the operating room. DESCRIPTION OF PROCEDURE: Once in the operating room, general endotracheal anesthesia was given by the anesthesia service. The area of surgery was prepped and draped in the usual sterile fashion after positioning her prone on the Joshua frame and the translucent table. After adequate prep and drape, a skin incision was given from L2 through L4 region. Alveolar layers were reached. Cut edges of blood vessels were coagulated with bipolar cautery. Paraspinal muscles were from midline structures from L2 through L4. L2-3 interspace was identified. The interspinous ligament was removed and bilateral laminectomy performed at L2 and L3. There was dense fibrous tissue epidurally, which most of it was removed. At this time, two anchoring stitches were applied to the dura and the dura was opened. A large amount of CSF gushed out under high pressure. It appeared there was no obvious communication with the general subarachnoid space, and this dural wound was closed and a similar incision was carried at L3-4. Here, the patient appeared to have been all expressed out from the superior incision. At this level, the wall of the subarachnoid cyst was more prominent and was sent for pathologic examination. The dural incision was closed similarly and at L4-L5, also, a small dural opening was made over very thinned out dura. Arachnoid could be seen and this was somewhat enlarged and no obvious extension of the this subarachnoid cyst was found. A stitch was placed to approximate the dura at this level. No obvious neural compression was identified over the L5 or L4 nerve root. Some scar tissue was present, and this was removed. Hemostasis was checked and secured. Blood loss was about 150 mL. At this time, the wound was closed in anatomical layers. Epidural fibrosis was sent for frozen section, which reported inflammatory response. No obvious pus or abscess was reported. Fax Copies To: Dr. Dumont, [place], [place] Dr. Biggs at [phone]
[2016-09-11 02:00] VITALS: BP 145/98
[2016-09-11] MEDS: ACETAMINOPHEN TAB 650MG DOSE (2X325MG) PO PRN ×2 (02:16→15:46)
[2016-09-11] MEDS: NAFCILLIN SOD 2 GM in D5W MINI-BAG PLUS 100 ML IV SCH ×6 (02:16→21:32)
[2016-09-11] MEDS: HYDROmorphone HCL 2 MG/ML 1ML VIAL (J1170) IV PRN ×4 (02:30→21:36)
[2016-09-11] MEDS: MORPHINE 2 MG/ML 1ML SYRINGE IV PRN ×2 (05:24→10:31)
[2016-09-11 06:00] VITALS: BP 144/84
[2016-09-11] MEDS: KCL 20MEQ IN D5/0.45NS 1000ML 1,000 ML IV SCH (06:00)
[2016-09-11 06:16] LABS: BASO % 0.1 % (0.0-1.0); EOS # 0.2 K/mm3 (0.0-0.50); EOS % 1.4 % (0.0-3.0); LARGE UNSTAINED CELL # 0.1 K/mm3 (0.0-0.4); LARGE UNSTAINED CELL % 1.1 % (0.0-4.0); LYMPH # 3.1 K/mm3 (1.5-4.5); LYMPH % 23.3 % (24.0-44.0); MEAN CORPUSCULAR HEMOGLOBIN 30.3 pg (27.0-33.0); MEAN CORPUSCULAR HGB CONC 33.4 g/dl (32.0-36.5); MEAN CORPUSCULAR VOLUME 90.7 fl (80.0-96.0); MONO # 0.6 K/mm3 (0.0-0.8); MONO % 4.5 % (0.0-5.0); NEUTROPHILS # 8.8 K/mm3 (1.8-7.7); NEUTROPHILS % 69.7 % (36.0-66.0); PLATELET COUNT, AUTOMATED 349 k/mm3 (150-450); RED CELL DISTRIBUTION WIDTH 12.6 % (11.5-14.5); WHITE BLOOD COUNT 12.6 K/mm3 (4.0-10.0)
[2016-09-11 06:40] LABS: ALBUMIN 2.7 GM/DL (3.2-5.2); ALBUMIN/GLOBULIN RATIO 0.73 (1.00-1.93); ALKALINE PHOSPHATASE 67 U/L (45-117); ALT/SGPT 14 U/L (12-78); ANION GAP 9 MEQ/L (8-16); AST/SGOT 17 U/L (15-37); BILIRUBIN,TOTAL 0.7 MG/DL (0.2-1.0); BLOOD UREA NITROGEN 6 MG/DL (7-18); CARBON DIOXIDE LEVEL 27 MEQ/L (21-32); CHLORIDE LEVEL 100 MEQ/L (98-107); CREATININE FOR GFR 0.57 MG/DL (0.55-1.02); GLOMERULAR FILTRATION RATE > 60.0 (>51); GLUCOSE, FASTING 103 MG/DL (70-105); MAGNESIUM LEVEL 1.9 MG/DL (1.8-2.4); POTASSIUM SERUM 3.7 MEQ/L (3.5-5.1); SODIUM LEVEL 136 MEQ/L (136-145); TOTAL PROTEIN 6.4 GM/DL (6.4-8.2)
[2016-09-11] MEDS: BACLOFEN 10 MG TAB PO SCH ×3 (09:28→21:33)
[2016-09-11] MEDS: SENNA 8.6 MG TAB (SENOKOT) PO SCH ×2 (09:29→21:33)
[2016-09-11] MEDS: GABAPENTIN 300 MG CAP PO SCH ×3 (09:29→21:33)
[2016-09-11 10:00] VITALS: BP 133/74
[2016-09-11] MEDS ORDERED: ONDANSETRON 4 MG ORAL DISINTEGRATING TAB (S0181) SL ONE (11:30)
--- NOTE | 2016-09-11 11:59 | REP ---
MR CERVICAL SPINE WITHOUT AND WITH CONTRAST: HISTORY: Paresthesias. CONTRAST: ProHance 10 mL. A disc bulge is present at the C3-4 level. There is minimal effacement of the thecal sac without spinal cord compression. Uncinate process hypertrophy is present on the right. This produces mild narrowing of the right C3 neural foramen. The left C3 neural foramen is patent. A disc bulge is present at the C6-7 level. There is minimal effacement of the thecal sac without spinal cord compression. Uncinate process hypertrophy is present on the right. This produces minimal narrowing of the right C6 neural foramen. The left C6 neural foramen is patent. There is no other disc bulge or herniation. The remaining neural foramina are patent. The spinal cord is normal in signal intensity. There is no abnormal enhancement. The C4-5 intervertebral disc is decreased in height, consistent with disc degeneration. Normal signal intensity is present in the cervical vertebral bodies. IMPRESSION: There is cervical spondylosis at the C3-4, C4-5, and C6-7 levels without spinal cord compression. Signed by Kushal Browning MD 09/11/2016 12:02 P
--- NOTE | 2016-09-11 13:08 | IPNPDOC ---
Date Seen The patient was seen on 09/11/16. Progress Note SUBJECTIVE: Patient reports that the pain in her left lower extremity is improved and is no longer burning in nature the paresthesias or decreased. She tells me that her headache is improved as well she has some at the occipital region but is not intense headache that she had the frontal area yesterday .today she does not complain of any paresthesias in the left upper extremity which she had complained about yesterday. The patient tells me that she has improved strength in the left lower extremity today also OBJECTIVE PHYSICAL EXAMINATION: VITAL SIGNS: Please see below. GENERAL: Frail skin a female lying in bed on her left side she appears to be much more comfortable than the previous day HEENT: pupils round reactive to light CARDIOVASCULAR: S1-S2. RESPIRATORY: Clear to auscultation. ABDOMINAL: Benign EXTREMITIES: Cyanosis or edema her dressing is clean dry and intact, 4/5 strength LLE LABORATORY DATA: Please see below. MICROBIOLOGY: Please see below. IMAGING: Patient had a duplex of the left lower extremity on 09/07/2016 that did not reveal any DVT Radiographic imaging reports reviewed ASSESSMENT AND PLAN: This is a 55-year-old Female who presented with sepsis syndrome status post operative drainage of a recent surgical site. PROBLEMS: 1. Hypertension: Patient is mildly normotensive this a.m, I would not restart her lisinopril but continue to monitor. 2. Sepsis syndrome: Dr. Forbes of infectious diseases is on the case and antibiotics have been broadened and then narrowed based on her cultures. ID team help is greatly appreciated. Patient was taken to the OR last evening with exploration and drainage of fluid collection and removal of cyst. On surprisingly she did have a fever postprocedural likely related to the manipulation. 3. Lung mass: Follow-up with a full pulmonary outpatient. 4. Constipation: Continue with current bowel regimen We'll continue to follow along with you regarding this patient. She does appear to be improved today VS, I&O, 24H, Fishbone Vital Signs/I&O Vital Signs Date Time Temp Pulse Resp B/P Pulse Ox O2 Delivery O2 Flow Rate FiO2 09/11/16 12:17 18 09/11/16 10:25 99.4 09/11/16 10:00 88 133/74 97 Room Air 2.0 I&O- Last 24 Hours up to 6 AM 09/11/16 05:59 Intake Total 3700 ml Output Total 2050 ml Balance 1650 ml Laboratory Data 24H LABS Laboratory Tests 2 09/11/16 05:58: Blood Urea Nitrogen 6L, Creatinine 0.57, Sodium Level 136, Potassium Level 3.7, Chloride Level 100, Carbon Dioxide Level 27, Calcium Level 9.0, Aspartate Amino Transf (AST/SGOT) 17, Alanine Aminotransferase (ALT/SGPT) 14, Alkaline Phosphatase 67, Total Bilirubin 0.7, Total Protein 6.4, Albumin 2.7L, Albumin/ Globulin Ratio 0.73L, Anion Gap 9, White Blood Count 12.6H, Red Blood Count 3.33L, Hemoglobin 10.1L, Hematocrit 30.2L, Mean Corpuscular Volume 90.7, Mean Corpuscular Hemoglobin 30.3, Mean Corpuscular Hemoglobin Concent 33.4, Red Cell Distribution Width 12.6, Platelet Count 349, Neutrophils (%) (Auto) 69.7H, Lymphocytes (%) (Auto) 23.3L, Monocytes (%) (Auto) 4.5, Eosinophils (%) (Auto) 1.4, Basophils (%) (Auto) 0.1, Neutrophils # (Auto) 8.8H, Lymphocytes # (Auto) 3.1, Monocytes # (Auto) 0.6, Eosinophils # (Auto) 0.2, Basophils # (Auto) 0.0, Glomerular Filtration Rate > 60.0, Large Unclassified Cells # 0.1, Large Unclassified Cells % 1.1, Magnesium Level 1.9 CBC/BMP Laboratory Tests 09/11/16 05:58 Calcium Level 9.0, Aspartate Amino Transf (AST/SGOT) 17, Alanine Aminotransferase (ALT/SGPT) 14, Alkaline Phosphatase 67, Total Bilirubin 0.7, Total Protein 6.4, Albumin 2.7 L, Red Blood Count 3.33 L, Mean Corpuscular Volume 90.7, Mean Corpuscular Hemoglobin 30.3, Mean Corpuscular Hemoglobin Concent 33.4, Red Cell Distribution Width 12.6, Neutrophils (%) (Auto) 69.7 H, Lymphocytes (%) (Auto) 23.3 L, Monocytes (%) (Auto) 4.5, Eosinophils (%) (Auto) 1.4, Basophils (%) (Auto) 0.1, Neutrophils # (Auto) 8.8 H, Lymphocytes # (Auto) 3.1, Monocytes # (Auto) 0.6, Eosinophils # (Auto) 0.2, Basophils # (Auto) 0.0 Microbiology Microbiology 09/06/16 Blood Culture - Preliminary, Resulted No Growth after 72 hours. All specime... 09/06/16 Blood Culture - Preliminary, Resulted No Growth after 72 hours. All specime... 09/06/16 Respiratory Virus Panel (PCR) ([facility]) - Final, Complete 09/06/16 Urine Culture - Final, Complete 09/10/16 Surgical Biopsy Culture, Received Pending 09/10/16 Anaerobic Culture, Received Pending 09/06/16 Gram Stain - Final, Complete 09/06/16 Body Fluid Culture - Final, Complete Staphylococcus Aureus 09/06/16 Anaerobic Culture - Final, Complete MARIA ISABEL CHAVEZ MD Sep 11, 2016 13:08
[2016-09-11 14:00] VITALS: BP 136/74
--- NOTE | 2016-09-11 15:16 | IPN ---
DATE: 09/11/2016 Lizteh went back to the operating room yesterday for a subarachnoid fluid collection from L2-L4. Dr. Biggs felt it was a loculated subarachnoid cyst of cerebrospinal fluid (CSF). The fluid just decompressed so quickly that he was not able to send it for culture but he did take a piece of the wall of the cyst for culture. The patient is still in significant amount of pain and complains of numbness in her left foot but seems to be a little better today. She also complains of numbness in both 5th fingers. She is requiring quite a bit of morphine. She usually takes Dilaudid at home 4 mg three times a day. Saw pain clinic but not through [facility]. She has had some low grade fevers. Temperature this morning was 100, pulse 88, respirations 19, blood pressure 133/74, Oxygen saturation 97% on 2 liters nasal cannula. Heart normal S1, S2. No murmurs. Lungs are clear. No wheezes, rales, or rhonchi. Abdomen is soft, nontender. No hepatosplenomegaly. Extremities no edema and decreased sensation to the left foot but the patient is definitely able to feel me touching her. She is moving all extremities. Her IV infiltrated and she is asking for a peripherally inserted central catheter (PICC) line. The patient has had two prior PICC lines, one 15 years ago when she was admitted with alcoholic pancreatitis and was hospitalized for about a month and the second time when she had a postoperative wound infection after hysterectomy. LABORATORY DATA: White count is 12.6, hemoglobin 10.1, hematocrit 30.2, platelets 349, 69% neutrophils, 23% lymphocytes, 4% monocytes. Sodium 136, potassium 3.7, chloride 100, bicarbonate 27, BUN 6, creatinine 0.57, glucose 103, calcium 9, CRP was 4.97 yesterday down from 16.6. 09/06/2016, blood cultures two sets were negative. Fluid culture from the back was positive for methicillin-sensitive Staphylococcus aureus (MSSA) and culture from yesterday's surgical biopsy from the back on 09/10/2016 is still pending. IMPRESSION: 1. Postoperative wound infection. Culture positive for methicillin-sensitive Staphylococcus aureus (MSSA). On IV nafcillin 2 grams every 4 hours. 2. Severe back pain with subarachnoid cyst felt to be possibly cerebrospinal fluid (CSF) status post resection yesterday. 3. IV phlebitis from nafcillin. IV was removed and the patient will be scheduled for a dual lumen peripherally inserted central catheter (PICC) line. 4. Degenerative disc disease with severe back pain after two surgeries. Will order pain clinic consult for better pain management. PLAN: Peripherally inserted central catheter (PICC) line insertion dual lumen catheter today. Continue IV nafcillin 2 grams every 4 hours. The patient will be going home on IV nafcillin. Consult pain clinic. I did call myself and ordered the consult. The patient has a history of methicillin-resistant Staphylococcus aureus (MRSA) in previous hospitalization in [place] many years ago. She has one negative screen done before surgery, will order another one. Currently is on isolation because of previous history. Case discussed with Dr. Biggs.
[2016-09-11] MEDS ORDERED: ONDANSETRON 4MG/2ML VIAL (J2405) IV ONE (16:00)
--- NOTE | 2016-09-11 16:26 | REP ---
Procedure: PICC line insertion with Asiya-Mirna The procedure was performed under the direct supervision of Dr. Vivar. The risks and benefits of the procedure were explained to the patient and informed consent was obtained. The right basilic vein was localized using ultrasound guidance. The skin was prepped and draped in a sterile fashion. 2% lidocaine was used as a local anesthetic. Using ultrasound guidance the basilic vein was cannulated and a 0.018 guidewire was inserted and advanced to the SVC using fluoroscopic guidance. The needle was removed and a 5.5 Norwegian dilator and peel-away sheath was inserted over the guide wire. A 5.5 Norwegian dual lumen catheter was cut to length of 41 cm. The dilator was removed and the catheter was inserted over the guide wire with the tip ending in the SVC. The peel-away sheath was removed and the catheter was flushed with heparinized saline as per Hospital protocol. The catheter was affixed to the skin and a sterile dressing was applied. The the patient tolerated the procedure well and there were no immediate complications. 0.2 minutes of fluoro time was utilized for this procedure. Reviewed by JENNIFER Mooney 09/11/2016 03:44 PSigned by Maco Vivar MD 09/11/2016 04:17 P
[2016-09-11] MEDS ORDERED: ISOVUE-370 76% 100ML VIAL (Q9967) As Ordered ONE ×2 (17:14→18:17)
[2016-09-11 18:00] VITALS: BP 122/72
--- NOTE | 2016-09-11 18:40 | REPUSA ---
CT of the lumbar spine with contrast Clinical history: Pain. Comparison: 09/10/2016. Technique: Multiple axial CT images were obtained through the lumbar spine after administration of no nionic intravenous contrast. Coronal and sagittal 3-D reconstructed images were also obtained. Findings: The lumbar vertebral bodies are in satisfactory positioning and alignment. No fractures or dislocatio ns are demonstrated. However, there is a posterior laminectomy at L3 and L4 and a left-sided laminect kimi at L5. The patient had a surgical resection yesterday as well. Postsurgical changes are seen, mos t prominent at L3 but extending throughout the posterior soft tissues. This includes subcutaneous and deep soft tissue emphysema, as well as ill-defined non-loculated fluid at the surgical site. Interve rtebral disc spaces are well-maintained. There is no evidence of facet subluxation. The neural forame n appear grossly patent. The spinal canal demonstrates normal caliber and contour without evidence of spinal stenosis. Impression: Postsurgical changes as described, with subcutaneous emphysema an ill-defined fluid and e lisa at the surgical site. No discrete loculated fluid collection or abscesses identified at this larry e. There is no discrete evidence of mass effect or central canal stenosis within the spinal canal. Ea rly changes from infection cannot completely be excluded at this time. Follow-up is recommended as cl inically indicated. Priscilla, the floor nurse, was called regarding these findings at 6:30 PM on 09/11/2016.
--- NOTE | 2016-09-11 19:19 | CR ---
DATE OF PAIN CLINIC CONSULTATION: 09/11/2016 REFERRING PHYSICIAN: Magaly Forbes MD CHIEF COMPLAINT: Low back pain. HISTORY OF PRESENT ILLNESS: Lizeth is a 55-year-old female that had complications of infection and subarachnoid fluid collection at L2-3 through L3-4, status post lumbar laminectomy L4-5 on 08/26/2016. She had decompression with lysis of perineural fibrosis and drainage of loculated subarachnoid cyst at L2 through L4 yesterday on 09/10/2016. Currently receiving Dilaudid 1.6 mg every 4 hours as needed for pain with minimal reduction in pain at reassessment 20 minutes after injection. Today, she is complaining of a level 8/10 low back pain. I discussed medication history with the patient. Has had lumbar epidural steroid injection most recently in July with Dr. Lanier at [facility] in [place]. The patient reports no improvement with injection and she said that she underwent back surgery on August 26, 2016. Reports two weeks of significant improvement in her pain and then noticed swelling around incisional area, with fever and pain and was admitted as described. PAST MEDICAL HISTORY: Hypertension. Lung mass. 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 PAST SURGICAL HISTORY: Laminectomy 08/26/2016, Right shoulder repair 1995. Hysterectomy in 2007. Tonsillectomy. ALLERGIES: LATEX, MORPHINE. FAMILY HISTORY: Mother with a history of pulmonary embolism. Father had history of myocardial infarction. SOCIAL HISTORY: Currently lives with her . Denies any current alcohol, tobacco or illicit drug use. REVIEW OF SYSTEMS: 11-point review of systems is negative except for complaints in HPI. PHYSICAL EXAMINATION: Awake, alert, pleasant. No acute distress noted. Vitals: 98.8, 103, 16, BP 122/72, O2 sats 97% on room air. VAS 8/10. Cardiac: S1, S2. Normal rate and rhythm. Respiratory: Lung sounds clear. Respirations nonlabored. Abdomen is soft, nontender. Inspection of spine: Sterile dressing is over LS axis. The patient reports agony with any movement. Able to move all extremities. No swelling noted. Normal sensation to light touch upper and lower extremities. ASSESSMENT: Acute pain secondary to complications, postoperative lumbar laminectomy. PLAN: Recommend starting OxyContin 15 mg morning and night. Continue use of Dilaudid 1.6 mg every 4 hours as needed (p.r.n.) for breakthrough pain. Thank you for allowing us to evaluate your patient. Should you have any questions or concerns please do not hesitate to contact me. Sincerely, [facility]
[2016-09-11] MEDS: CETIRIZINE (ZyrTEC) 10 MG TAB PO SCH (21:32)
[2016-09-11 22:00] VITALS: BP 114/73
[2016-09-12] VITALS (7 sets, daily range): BP systolic 114–146; BP diastolic 75–90
[2016-09-12] MEDS: NAFCILLIN SOD 2 GM in D5W MINI-BAG PLUS 100 ML IV SCH ×6 (01:27→21:21)
[2016-09-12] MEDS: HYDROmorphone HCL 2 MG/ML 1ML VIAL (J1170) IV PRN ×5 (01:52→19:49)
[2016-09-12] MEDS: SODIUM CHLORIDE 0.9% INJ 10 ML SYR IV SCH ×2 (05:55→17:27)
[2016-09-12 06:44] LABS: BASO % 0.3 % (0.0-1.0); EOS # 0.1 K/mm3 (0.0-0.50); LARGE UNSTAINED CELL # 0.2 K/mm3 (0.0-0.4); LARGE UNSTAINED CELL % 1.8 % (0.0-4.0); LYMPH # 3.5 K/mm3 (1.5-4.5); LYMPH % 30.7 % (24.0-44.0); MEAN CORPUSCULAR HEMOGLOBIN 29.7 pg (27.0-33.0); MEAN CORPUSCULAR HGB CONC 32.7 g/dl (32.0-36.5); MEAN CORPUSCULAR VOLUME 90.8 fl (80.0-96.0); MONO # 0.7 K/mm3 (0.0-0.8); MONO % 6.1 % (0.0-5.0); NEUTROPHILS # 6.9 K/mm3 (1.8-7.7); NEUTROPHILS % 60.1 % (36.0-66.0); PLATELET COUNT, AUTOMATED 427 k/mm3 (150-450); RED CELL DISTRIBUTION WIDTH 12.8 % (11.5-14.5); WHITE BLOOD COUNT 11.4 K/mm3 (4.0-10.0)
[2016-09-12 07:46] LABS: ALBUMIN 2.6 GM/DL (3.2-5.2); ALBUMIN/GLOBULIN RATIO 0.67 (1.00-1.93); ALKALINE PHOSPHATASE 67 U/L (45-117); ALT/SGPT 14 U/L (12-78); ANION GAP 9 MEQ/L (8-16); AST/SGOT 13 U/L (15-37); BILIRUBIN,TOTAL 0.4 MG/DL (0.2-1.0); BLOOD UREA NITROGEN 7 MG/DL (7-18); CALCIUM LEVEL 8.5 MG/DL (8.5-10.1); CARBON DIOXIDE LEVEL 30 MEQ/L (21-32); CHLORIDE LEVEL 101 MEQ/L (98-107); CREATININE FOR GFR 0.61 MG/DL (0.55-1.02); GLOMERULAR FILTRATION RATE > 60.0 (>51); GLUCOSE, FASTING 97 MG/DL (70-105); POTASSIUM SERUM 3.6 MEQ/L (3.5-5.1); SODIUM LEVEL 140 MEQ/L (136-145); TOTAL PROTEIN 6.5 GM/DL (6.4-8.2)
[2016-09-12] MEDS: GABAPENTIN 300 MG CAP PO SCH ×3 (09:47→21:24)
[2016-09-12] MEDS: SENNA 8.6 MG TAB (SENOKOT) PO SCH ×2 (09:47→21:24)
[2016-09-12] MEDS: BACLOFEN 10 MG TAB PO SCH ×3 (09:47→21:23)
[2016-09-12] MEDS: oxyCODONE 15 MG CR TAB PO SCH ×2 (09:47→21:32)
[2016-09-12] MEDS: MIRALAX *UNIT DOSE* 17GM PACKET PO PRN (10:50)
--- NOTE | 2016-09-12 12:20 | IPNPDOC ---
Date Seen The patient was seen on 09/12/16. Progress Note SUBJECTIVE: Patient reports feeling much more comfortable today, pain is markedly reduced, she no lnger has burning, her parathesias are less. Patient states her headache is improved also. OBJECTIVE PHYSICAL EXAMINATION: VITAL SIGNS: Please see below. GENERAL: Frail skin a female lying in bed on her left side she appears to be much more comfortable than the previous day. She is accompanied by her who is bedside. HEENT: pupils round reactive to light CARDIOVASCULAR: S1-S2. RESPIRATORY: Clear to auscultation. ABDOMINAL: Benign EXTREMITIES: No Cyanosis or edema her dressing is clean dry and intact LABORATORY DATA: Please see below. MICROBIOLOGY: Please see below. IMAGING: Patient had a duplex of the left lower extremity on 09/07/2016 that did not reveal any DVT Radiographic imaging reports reviewed ASSESSMENT AND PLAN: This is a 55-year-old Female who presented with sepsis syndrome status post operative drainage of a recent surgical site. PROBLEMS: 1. Hypertension: Patient is normotensive this a.m, I would not restart her lisinopril but continue to monitor. She is still receiving IV pain meds which can drop her BP. 2. Sepsis syndrome: Dr. Forbes of infectious diseases is on the case and antibiotics have been broadened and then narrowed based on her cultures. ID team help is greatly appreciated. Patient was taken to the OR with exploration and drainage of fluid collection and removal of cyst. She does appear to be improving at this time. Abx as per ID. Pain mngt cons appreciated. 3. Lung mass: Follow-up with a full pulmonary outpatient. 4. Constipation: Continue with current bowel regimen We'll continue to follow along with you regarding this patient. She does appear to be improving following operative intervention VS, I&O, [facility] Vital Signs/I&O Vital Signs Date Time Temp Pulse Resp B/P Pulse Ox O2 Delivery O2 Flow Rate FiO2 09/12/16 10:50 18 09/12/16 10:00 99.3 109 146/90 100 Room Air 09/11/16 10:00 I&O- Last 24 Hours up to 6 AM 09/12/16 05:59 Intake Total 2985 ml Output Total 4600 ml Balance -1615 ml Laboratory Data 24H LABS Laboratory Tests 2 09/12/16 06:10: Blood Urea Nitrogen 7, Creatinine 0.61, Sodium Level 140, Potassium Level 3.6, Chloride Level 101, Carbon Dioxide Level 30, Calcium Level 8.5, Aspartate Amino Transf (AST/SGOT) 13L, Alanine Aminotransferase (ALT/SGPT) 14, Alkaline Phosphatase 67, Total Bilirubin 0.4, Total Protein 6.5, Albumin 2.6L, Albumin/ Globulin Ratio 0.67L, Anion Gap 9, White Blood Count 11.4H, Red Blood Count 3.33L, Hemoglobin 9.9L, Hematocrit 30.2L, Mean Corpuscular Volume 90.8, Mean Corpuscular Hemoglobin 29.7, Mean Corpuscular Hemoglobin Concent 32.7, Red Cell Distribution Width 12.8, Platelet Count 427, Neutrophils (%) (Auto) 60.1, Lymphocytes (%) (Auto) 30.7, Monocytes (%) (Auto) 6.1H, Eosinophils (%) (Auto) 1.0, Basophils (%) (Auto) 0.3, Neutrophils # (Auto) 6.9, Lymphocytes # (Auto) 3.5, Monocytes # (Auto) 0.7, Eosinophils # (Auto) 0.1, Basophils # (Auto) 0.0, Glomerular Filtration Rate > 60.0, Large Unclassified Cells # 0.2, Large Unclassified Cells % 1.8, Magnesium Level 2.0 CBC/BMP Laboratory Tests 09/12/16 06:10 Calcium Level 8.5, Aspartate Amino Transf (AST/SGOT) 13 L, Alanine Aminotransferase (ALT/SGPT) 14, Alkaline Phosphatase 67, Total Bilirubin 0.4, Total Protein 6.5, Albumin 2.6 L, Red Blood Count 3.33 L, Mean Corpuscular Volume 90.8, Mean Corpuscular Hemoglobin 29.7, Mean Corpuscular Hemoglobin Concent 32.7, Red Cell Distribution Width 12.8, Neutrophils (%) (Auto) 60.1, Lymphocytes (%) (Auto) 30.7, Monocytes (%) (Auto) 6.1 H, Eosinophils (%) (Auto) 1.0, Basophils (%) (Auto) 0.3, Neutrophils # (Auto) 6.9, Lymphocytes # (Auto) 3.5, Monocytes # (Auto) 0.7, Eosinophils # (Auto) 0.1, Basophils # (Auto) 0.0 Microbiology Microbiology 09/06/16 Blood Culture - Final, Complete NO GROWTH AFTER 5 DAYS 09/06/16 Blood Culture - Final, Complete NO GROWTH AFTER 5 DAYS 09/11/16 MRSA Screen, Received Pending 09/06/16 Respiratory Virus Panel (PCR) ([facility]) - Final, Complete 09/06/16 Urine Culture - Final, Complete 09/10/16 Surgical Biopsy Culture - Preliminary, Resulted Staphylococcus Aureus 09/10/16 Anaerobic Culture - Final, Resulted 09/06/16 Gram Stain - Final, Complete 09/06/16 Body Fluid Culture - Final, Complete Staphylococcus Aureus 09/06/16 Anaerobic Culture - Final, Complete MARIA ISABEL CHAVEZ MD Sep 12, 2016 12:20
[2016-09-12] MEDS: SODIUM CHLORIDE 0.9% INJ 10 ML SYR IV PRN ×2 (19:50→21:22)
[2016-09-12] MEDS: CETIRIZINE (ZyrTEC) 10 MG TAB PO SCH (21:25)
[2016-09-12] MEDS: ACETAMINOPHEN TAB 650MG DOSE (2X325MG) PO PRN (23:01)
[2016-09-13] MEDS: HYDROmorphone HCL 2 MG/ML 1ML VIAL (J1170) IV PRN ×3 (01:10→10:11)
[2016-09-13 02:00] VITALS: BP 143/99
[2016-09-13] MEDS: SODIUM CHLORIDE 0.9% INJ 10 ML SYR IV PRN ×2 (02:00→23:30)
[2016-09-13] MEDS: NAFCILLIN SOD 2 GM in D5W MINI-BAG PLUS 100 ML IV SCH ×6 (02:00→22:16)
[2016-09-13 06:00] VITALS: BP 152/92
[2016-09-13] MEDS: SODIUM CHLORIDE 0.9% INJ 10 ML SYR IV SCH ×2 (06:11→18:10)
[2016-09-13 06:46] LABS: BASO % 0.4 % (0.0-1.0); EOS # 0.2 K/mm3 (0.0-0.50); LARGE UNSTAINED CELL # 0.2 K/mm3 (0.0-0.4); LARGE UNSTAINED CELL % 1.9 % (0.0-4.0); LYMPH # 3.2 K/mm3 (1.5-4.5); LYMPH % 41.4 % (24.0-44.0); MEAN CORPUSCULAR HEMOGLOBIN 30.1 pg (27.0-33.0); MEAN CORPUSCULAR HGB CONC 32.8 g/dl (32.0-36.5); MEAN CORPUSCULAR VOLUME 91.6 fl (80.0-96.0); MONO # 0.4 K/mm3 (0.0-0.8); MONO % 5.4 % (0.0-5.0); NEUTROPHILS # 3.8 K/mm3 (1.8-7.7); NEUTROPHILS % 48.9 % (36.0-66.0); PLATELET COUNT, AUTOMATED 429 k/mm3 (150-450); RED CELL DISTRIBUTION WIDTH 12.8 % (11.5-14.5); WHITE BLOOD COUNT 7.7 K/mm3 (4.0-10.0)
[2016-09-13 06:58] LABS: ALBUMIN 2.6 GM/DL (3.2-5.2); ALBUMIN/GLOBULIN RATIO 0.84 (1.00-1.93); ALKALINE PHOSPHATASE 66 U/L (45-117); ALT/SGPT 12 U/L (12-78); ANION GAP 7 MEQ/L (8-16); AST/SGOT 15 U/L (15-37); BILIRUBIN,TOTAL 0.4 MG/DL (0.2-1.0); BLOOD UREA NITROGEN 7 MG/DL (7-18); CARBON DIOXIDE LEVEL 30 MEQ/L (21-32); CHLORIDE LEVEL 104 MEQ/L (98-107); CREATININE FOR GFR 0.45 MG/DL (0.55-1.02); GLOMERULAR FILTRATION RATE > 60.0 (>51); GLUCOSE, FASTING 85 MG/DL (70-105); MAGNESIUM LEVEL 2.2 MG/DL (1.8-2.4); SODIUM LEVEL 141 MEQ/L (136-145); TOTAL PROTEIN 5.7 GM/DL (6.4-8.2)
[2016-09-13] MEDS: BACLOFEN 10 MG TAB PO SCH ×2 (09:41→21:16)
[2016-09-13] MEDS: oxyCODONE 15 MG CR TAB PO SCH ×2 (09:41→21:17)
[2016-09-13] MEDS: GABAPENTIN 300 MG CAP PO SCH ×3 (09:41→21:15)
[2016-09-13] MEDS: SENNA 8.6 MG TAB (SENOKOT) PO SCH ×2 (09:41→21:15)
[2016-09-13 10:00] VITALS: BP_SYST 130; BP_SYST 152; BP_DIAS 78; BP_DIAS 92
--- NOTE | 2016-09-13 10:22 | IPNPDOC ---
Date Seen The patient was seen on 09/13/16. Progress Note SUBJECTIVE: Patient reports she continues to feel better, she says she is much improved even from yesterday. She is much more comfortable OBJECTIVE PHYSICAL EXAMINATION: VITAL SIGNS: Please see below. GENERAL: Frail skin a female lying flat on her back in bed she appears to be much more comfortable than the previous days. She is accompanied by her who is bedside. HEENT: pupils round reactive to light CARDIOVASCULAR: S1-S2. RESPIRATORY: Clear to auscultation. ABDOMINAL: Benign EXTREMITIES: No Cyanosis or edema her dressing is clean dry and intact LABORATORY DATA: Please see below. MICROBIOLOGY: Please see below. IMAGING: Patient had a duplex of the left lower extremity on 09/07/2016 that did not reveal any DVT Radiographic imaging reports reviewed ASSESSMENT AND PLAN: This is a 55-year-old Female who presented with sepsis syndrome status post operative drainage of a recent surgical site. PROBLEMS: 1. Hypertension: Patient is mildly hypertensive this a.m, I would not restart her lisinopril but continue to monitor. She is still receiving IV pain meds which can drop her BP. 2. Sepsis syndrome: Dr. Forbes of infectious diseases is on the case and antibiotics and duration of therapy as per her recs. Patient is with PICC line. She is now afebrile, leukocytosis has resolved, clinically improved. The patients pain at surgical site is decreasing, she is open to a trial of PO pain medications, she would also likely benefit from PT eval. 3. Lung mass: Follow-up with pulmonary outpatient as already scheduled. 4. Constipation: Continue with current bowel regimen. We'll continue to follow along with you regarding this patient. She does appear to be improving VS, I&O, 24H, Fishbone Vital Signs/I&O Vital Signs Date Time Temp Pulse Resp B/P Pulse Ox O2 Delivery O2 Flow Rate FiO2 09/13/16 10:11 20 09/13/16 06:00 97.0 81 152/92 99 Room Air 09/11/16 10:00 I&O- Last 24 Hours up to 6 AM 09/13/16 06:00 Intake Total 2720 ml Output Total 4650 ml Balance -1930 ml Laboratory Data 24H LABS Laboratory Tests 2 09/13/16 06:13: Blood Urea Nitrogen 7, Creatinine 0.45L, Sodium Level 141, Potassium Level 4.0, Chloride Level 104, Carbon Dioxide Level 30, Calcium Level 9.0, Aspartate Amino Transf (AST/SGOT) 15, Alanine Aminotransferase (ALT/SGPT) 12, Alkaline Phosphatase 66, Total Bilirubin 0.4, Total Protein 5.7L, Albumin 2.6L, Albumin/ Globulin Ratio 0.84L, Anion Gap 7L, White Blood Count 7.7, Red Blood Count 3.42L , Hemoglobin 10.3L, Hematocrit 31.4L, Mean Corpuscular Volume 91.6, Mean Corpuscular Hemoglobin 30.1, Mean Corpuscular Hemoglobin Concent 32.8, Red Cell Distribution Width 12.8, Platelet Count 429, Neutrophils (%) (Auto) 48.9, Lymphocytes (%) (Auto) 41.4, Monocytes (%) (Auto) 5.4H, Eosinophils (%) (Auto) 2.0, Basophils (%) (Auto) 0.4, Neutrophils # (Auto) 3.8, Lymphocytes # (Auto) 3.2, Monocytes # (Auto) 0.4, Eosinophils # (Auto) 0.2, Basophils # (Auto) 0.0, Glomerular Filtration Rate > 60.0, Large Unclassified Cells # 0.2, Large Unclassified Cells % 1.9, Magnesium Level 2.2 CBC/BMP Laboratory Tests 09/13/16 06:13 Calcium Level 9.0, Aspartate Amino Transf (AST/SGOT) 15, Alanine Aminotransferase (ALT/SGPT) 12, Alkaline Phosphatase 66, Total Bilirubin 0.4, Total Protein 5.7 L, Albumin 2.6 L, Red Blood Count 3.42 L, Mean Corpuscular Volume 91.6, Mean Corpuscular Hemoglobin 30.1, Mean Corpuscular Hemoglobin Concent 32.8, Red Cell Distribution Width 12.8, Neutrophils (%) (Auto) 48.9, Lymphocytes (%) (Auto) 41.4, Monocytes (%) (Auto) 5.4 H, Eosinophils (%) (Auto) 2.0, Basophils (%) (Auto) 0.4, Neutrophils # (Auto) 3.8, Lymphocytes # (Auto) 3.2, Monocytes # (Auto) 0.4, Eosinophils # (Auto) 0.2, Basophils # (Auto) 0.0 Microbiology Microbiology 09/06/16 Blood Culture - Final, Complete NO GROWTH AFTER 5 DAYS 09/06/16 Blood Culture - Final, Complete NO GROWTH AFTER 5 DAYS 09/11/16 MRSA Screen - Final, Complete 09/06/16 Respiratory Virus Panel (PCR) ([facility]) - Final, Complete 09/06/16 Urine Culture - Final, Complete 09/10/16 Surgical Biopsy Culture - Final, Complete Staphylococcus Aureus 09/10/16 Anaerobic Culture - Final, Complete 09/06/16 Gram Stain - Final, Complete 09/06/16 Body Fluid Culture - Final, Complete Staphylococcus Aureus 09/06/16 Anaerobic Culture - Final, Complete MARIA ISABEL CHAVEZ MD Sep 13, 2016 10:22
[2016-09-13] MEDS ORDERED: BACLOFEN 10 MG TAB PO SCH ×2 (13:00→17:00)
[2016-09-13 14:00] VITALS: BP 141/91
[2016-09-13] MEDS: HYDROmorphone 2 MG TAB PO PRN ×3 (14:12→22:20)
--- NOTE | 2016-09-13 14:26 | IPN ---
DATE: 09/13/2016 NEUROSURGERY Subjective: The patient was seen at the bedside today. She is accompanied by her . She denies any new symptoms today. She states she feels her muscle spasms in her low back are currently her worst symptom. She does have some soreness around the incision but believes that most of her pain is coming from the sudden onset of the muscle spasms that get worse after movement. She denies any numbness or tingling radiating down into her leg. Since her morphine was stopped 2 days ago, she has not had any episodes of nausea and vomiting. She states that she had a bowel movement today and has been feeling better since. She reports a mild intermittent headache, but states that using the ice pack on the back of her head helps to improve that. Per patient and her nurse, she has been walking the hallways and ambulating well to the bathroom. Her states that she has been eating more lately and has been noticing improvement since she has been increasing her diet. Objective: She is alert and oriented to person, place and location. She was sitting comfortably in the bed. When I approached her, she appeared to be in very good spirits, smiling and laughing. She stated that she had been feeling much better today and was proud that she was ambulating. She participated in conversation appropriately. Her rate and flow of speech is ordinary. No new findings on exam today. Muscle spasms are appreciated in the low back region. Her bandage over the low back is intact. There is no obvious drainage or surrounding erythema from the bandage. After having the patient turn to the side to view the bandage, she began to experience muscle spasms in her low back causing her quite distress. She began to tear up and become emotional. This was quite a change in her presentation from when I initially approached her. Her blood pressure has been mildly elevated intermittently. Per nursing staff, they note an increase in her blood pressure when she states she is in pain. Her temperature yesterday has been trending around 99 degrees Fahrenheit. This morning, her temperature has been 96.6 and 97.0, which is improved. Imaging from 09/11/2016 is noted. Regarding her lab work, her chemistry has been within normal limits. Her white blood cell count was within normal limits today, which is a big improvement from an increased value of 11.4 yesterday. Assessment/Plan: I spoke with the nurse who states they are planning a possible discharge for Wednesday. Will switch her Dilaudid from IV to oral at this time. Will start 2 mg by mouth every 4 hours as needed for pain of Dilaudid. It appears a lot of her pain can be attributed to the increase in muscle spasms after movement. She is currently taking baclofen 20 mg three times a day, which she has been taking this for 2 years and she reports that she feels it does help her significantly. Given her recent strain of events and her two recent low back surgeries, will increase the baclofen from three times a day to four times a day in the hopes to control some of these muscle spasms. Discussed these changes with the patient and her who agree that this increase in baclofen may help to provide her increased comfort. I also discussed with them that I would not like to continue the four times a day long-term and that this is only temporary as her muscle spasms may be more given her two recent surgeries. She understands that she will have to taper this when decreasing back to three times a day. All other questions have been answered to the patient's satisfaction. CAMRON
[2016-09-13 18:00] VITALS: BP 158/88
[2016-09-13] MEDS: CETIRIZINE (ZyrTEC) 10 MG TAB PO SCH (21:15)
[2016-09-13 22:00] VITALS: BP 126/83
[2016-09-14] VITALS (7 sets, daily range): BP systolic 128–142; BP diastolic 80–98
[2016-09-14] MEDS: NAFCILLIN SOD 2 GM in D5W MINI-BAG PLUS 100 ML IV SCH ×6 (01:49→21:50)
[2016-09-14] MEDS: HYDROmorphone 2 MG TAB PO PRN ×4 (02:33→23:13)
[2016-09-14] MEDS: SODIUM CHLORIDE 0.9% INJ 10 ML SYR IV SCH ×2 (06:04→19:04)
[2016-09-14 06:22] LABS: BASO % 0.5 % (0.0-1.0); EOS # 0.1 K/mm3 (0.0-0.50); EOS % 1.9 % (0.0-3.0); LARGE UNSTAINED CELL # 0.1 K/mm3 (0.0-0.4); LARGE UNSTAINED CELL % 1.7 % (0.0-4.0); LYMPH # 2.5 K/mm3 (1.5-4.5); LYMPH % 40.3 % (24.0-44.0); MEAN CORPUSCULAR HEMOGLOBIN 29.6 pg (27.0-33.0); MEAN CORPUSCULAR HGB CONC 32.4 g/dl (32.0-36.5); MEAN CORPUSCULAR VOLUME 91.4 fl (80.0-96.0); MONO # 0.3 K/mm3 (0.0-0.8); NEUTROPHILS # 3.2 K/mm3 (1.8-7.7); NEUTROPHILS % 50.7 % (36.0-66.0); PLATELET COUNT, AUTOMATED 481 k/mm3 (150-450); RED CELL DISTRIBUTION WIDTH 12.8 % (11.5-14.5); WHITE BLOOD COUNT 6.2 K/mm3 (4.0-10.0)
[2016-09-14 06:34] LABS: ALBUMIN 2.7 GM/DL (3.2-5.2); ALBUMIN/GLOBULIN RATIO 0.87 (1.00-1.93); ALKALINE PHOSPHATASE 65 U/L (45-117); ALT/SGPT 12 U/L (12-78); ANION GAP 8 MEQ/L (8-16); AST/SGOT 11 U/L (15-37); BILIRUBIN,TOTAL 0.4 MG/DL (0.2-1.0); BLOOD UREA NITROGEN 6 MG/DL (7-18); CALCIUM LEVEL 8.7 MG/DL (8.5-10.1); CARBON DIOXIDE LEVEL 29 MEQ/L (21-32); CHLORIDE LEVEL 105 MEQ/L (98-107); CREATININE FOR GFR 0.47 MG/DL (0.55-1.02); GLOMERULAR FILTRATION RATE > 60.0 (>51); GLUCOSE, FASTING 90 MG/DL (70-105); MAGNESIUM LEVEL 2.3 MG/DL (1.8-2.4); POTASSIUM SERUM 3.9 MEQ/L (3.5-5.1); SODIUM LEVEL 142 MEQ/L (136-145); TOTAL PROTEIN 5.8 GM/DL (6.4-8.2)
[2016-09-14] MEDS: SODIUM CHLORIDE 0.9% INJ 10 ML SYR IV PRN ×2 (07:25→23:14)
[2016-09-14] MEDS: BACLOFEN 10 MG TAB PO SCH ×3 (09:24→21:50)
[2016-09-14] MEDS: SENNA 8.6 MG TAB (SENOKOT) PO SCH ×2 (09:25→21:50)
[2016-09-14] MEDS: oxyCODONE 15 MG CR TAB PO SCH ×2 (09:28→21:53)
[2016-09-14] MEDS: GABAPENTIN 300 MG CAP PO SCH ×3 (09:29→21:51)
--- NOTE | 2016-09-14 11:11 | IPNPDOC ---
Date Seen The patient was seen on 09/14/16. Progress Note SUBJECTIVE: Patient reports she continues to feel better, this AM she denies leg pain but complain of muscle spasms in her back which are new. OBJECTIVE PHYSICAL EXAMINATION: VITAL SIGNS: Please see below. GENERAL: Frail skin a female lying flat on her back in bed she appears well HEENT: pupils round reactive to light CARDIOVASCULAR: S1-S2. RESPIRATORY: Clear to auscultation. ABDOMINAL: Benign EXTREMITIES: No Cyanosis or edema her dressing is clean dry and intact LABORATORY DATA: Please see below. MICROBIOLOGY: Please see below. IMAGING: Radiographic imaging reports reviewed ASSESSMENT AND PLAN: This is a 55-year-old Female who presented with sepsis syndrome status post operative drainage of a recent surgical site. PROBLEMS: 1. Hypertension: Patient is mildly hypertensive this a.m. At this time I will restart her home lisinopril. 2. Sepsis syndrome:Abx and duration of therapy as per Dr. Forbes. Pain symptoms improving, could consider Ativan PO to help with muscle spasms, I will order PT home safety eval. Discharge plan left to primary team. 3. Lung mass: Follow-up with pulmonary outpatient as already scheduled. 4. Constipation: Continue with current bowel regimen. Patient is having regular BM's We'll continue to follow along with you regarding this patient. VS, I&O, 24H, Fishbone Vital Signs/I&O Vital Signs Date Time Temp Pulse Resp B/P Pulse Ox O2 Delivery O2 Flow Rate FiO2 09/14/16 10:00 98.2 110 18 139/96 99 Room Air 09/11/16 10:00 I&O- Last 24 Hours up to 6 AM 09/14/16 06:00 Intake Total 2780 ml Output Total 3375 ml Balance -595 ml Laboratory Data 24H LABS Laboratory Tests 2 09/14/16 06:04: Blood Urea Nitrogen 6L, Creatinine 0.47L, Sodium Level 142, Potassium Level 3.9 , Chloride Level 105, Carbon Dioxide Level 29, Calcium Level 8.7, Aspartate Amino Transf (AST/SGOT) 11L, Alanine Aminotransferase (ALT/SGPT) 12, Alkaline Phosphatase 65, Total Bilirubin 0.4, Total Protein 5.8L, Albumin 2.7L, Albumin/ Globulin Ratio 0.87L, Anion Gap 8, White Blood Count 6.2, Red Blood Count 3.48L , Hemoglobin 10.3L, Hematocrit 31.8L, Mean Corpuscular Volume 91.4, Mean Corpuscular Hemoglobin 29.6, Mean Corpuscular Hemoglobin Concent 32.4, Red Cell Distribution Width 12.8, Platelet Count 481H, Neutrophils (%) (Auto) 50.7, Lymphocytes (%) (Auto) 40.3, Monocytes (%) (Auto) 5.0, Eosinophils (%) (Auto) 1.9, Basophils (%) (Auto) 0.5, Neutrophils # (Auto) 3.2, Lymphocytes # (Auto) 2.5, Monocytes # (Auto) 0.3, Eosinophils # (Auto) 0.1, Basophils # (Auto) 0.0, Glomerular Filtration Rate > 60.0, Large Unclassified Cells # 0.1, Large Unclassified Cells % 1.7, Magnesium Level 2.3 CBC/BMP Laboratory Tests 09/14/16 06:04 Calcium Level 8.7, Aspartate Amino Transf (AST/SGOT) 11 L, Alanine Aminotransferase (ALT/SGPT) 12, Alkaline Phosphatase 65, Total Bilirubin 0.4, Total Protein 5.8 L, Albumin 2.7 L, Red Blood Count 3.48 L, Mean Corpuscular Volume 91.4, Mean Corpuscular Hemoglobin 29.6, Mean Corpuscular Hemoglobin Concent 32.4, Red Cell Distribution Width 12.8, Neutrophils (%) (Auto) 50.7, Lymphocytes (%) (Auto) 40.3, Monocytes (%) (Auto) 5.0, Eosinophils (%) (Auto) 1.9, Basophils (%) (Auto) 0.5, Neutrophils # (Auto) 3.2, Lymphocytes # (Auto) 2.5, Monocytes # (Auto) 0.3, Eosinophils # (Auto) 0.1, Basophils # (Auto) 0.0 Microbiology Microbiology 09/06/16 Blood Culture - Final, Complete NO GROWTH AFTER 5 DAYS 09/06/16 Blood Culture - Final, Complete NO GROWTH AFTER 5 DAYS 09/11/16 MRSA Screen - Final, Complete 09/06/16 Respiratory Virus Panel (PCR) ([facility]) - Final, Complete 09/06/16 Urine Culture - Final, Complete 09/10/16 Surgical Biopsy Culture - Final, Complete Staphylococcus Aureus 09/10/16 Anaerobic Culture - Final, Complete 09/06/16 Gram Stain - Final, Complete 09/06/16 Body Fluid Culture - Final, Complete Staphylococcus Aureus 09/06/16 Anaerobic Culture - Final, Complete MARIA ISABEL CHAVEZ MD Sep 14, 2016 11:11
[2016-09-14] MEDS: ACETAMINOPHEN TAB 650MG DOSE (2X325MG) PO PRN (13:44)
--- NOTE | 2016-09-14 18:57 | IPN ---
DATE: 09/14/2016 Subjective: Patient was seen at the bed side this morning. She states she is feeling better and she thinks the extra 10 mg of Baclofen helps with some of her muscle spasms. She states she will attempt to walk the hallways today and continue her stretches as we discussed yesterday. She denies any nausea, vomiting or abdominal pain. Continues to deny pain radiating down her leg. Feels the soreness in her low back. She states her muscle spasms are worse after she moves around. Objective: No new focal deficits noted on exam. She is alert and oriented times three. She appears to be in good spirits. She does not appear to be in significant discomfort. Assessment: Chronic low back pain, s/p lumbar laminectomy Plan: Will continue to monitor patient. Plan for discharge tomorrow, Wednesday. CAMRON
[2016-09-14] MEDS ORDERED: LISINOPRIL 20 MG TAB PO SCH (21:00)
--- NOTE | 2016-09-14 21:12 | IPN ---
INFECTIOUS DISEASE PROGRESS NOTE: 09/04/2016 Mrs. Salas is doing much better. She is anxious to go home. Her back pain is well tolerated. She has no nausea, vomiting or diarrhea. No abdominal pain. She still has back pain and some lower extremity spasm, but much better tolerated with baclofen. She has had no fever. PHYSICAL EXAMINATION: On physical exam she is alert and oriented times three. Heart: Normal S1, S2, no murmurs. Lungs are clear. No wheezes, rales or rhonchi. Abdomen: Soft, nontender. Back: Incision is clean. Measures about 10 cm. No erythema. Minimal tenderness. She has been afebrile for the past 3 days. IMPRESSION: Postoperative wound infection with subdural abscess with culture positive for MSSA. On IV nafcillin, afebrile and improving. PLAN: The patient will be discharged home on IV nafcillin 12 grams continuous infusion for another 3 weeks, which would be a total of 4 weeks. She had been on IV antibiotics since 09/07. Will have blood work done every week CBC, CRP, sed rate and ESR. Second methicillin-resistant Staphylococcus aureus (MRSA) screen was done and was negative. She will need a third MRSA screen done in a week and if negative she may be considered no longer colonized. She will followup in my office in 2-3 weeks.
[2016-09-14] MEDS: CETIRIZINE (ZyrTEC) 10 MG TAB PO SCH (21:50)
[2016-09-15 02:00] VITALS: BP 118/22
[2016-09-15] MEDS: NAFCILLIN SOD 2 GM in D5W MINI-BAG PLUS 100 ML IV SCH ×4 (02:21→13:36)
[2016-09-15] MEDS ORDERED: CEPACOL LOZENGE PO PRN (03:00)
[2016-09-15 06:00] VITALS: BP 139/91
[2016-09-15] MEDS: SODIUM CHLORIDE 0.9% INJ 10 ML SYR IV SCH (06:21)
[2016-09-15] MEDS: HYDROmorphone 2 MG TAB PO PRN ×2 (06:23→10:24)
[2016-09-15 06:44] LABS: BASO % 0.6 % (0.0-1.0); EOS # 0.2 K/mm3 (0.0-0.50); EOS % 2.6 % (0.0-3.0); LARGE UNSTAINED CELL # 0.1 K/mm3 (0.0-0.4); LARGE UNSTAINED CELL % 1.8 % (0.0-4.0); LYMPH # 2.6 K/mm3 (1.5-4.5); LYMPH % 46.7 % (24.0-44.0); MEAN CORPUSCULAR HEMOGLOBIN 29.9 pg (27.0-33.0); MEAN CORPUSCULAR HGB CONC 32.6 g/dl (32.0-36.5); MEAN CORPUSCULAR VOLUME 91.8 fl (80.0-96.0); MONO # 0.3 K/mm3 (0.0-0.8); MONO % 4.9 % (0.0-5.0); NEUTROPHILS # 2.4 K/mm3 (1.8-7.7); NEUTROPHILS % 43.4 % (36.0-66.0); PLATELET COUNT, AUTOMATED 531 k/mm3 (150-450); RED CELL DISTRIBUTION WIDTH 13.1 % (11.5-14.5); WHITE BLOOD COUNT 5.6 K/mm3 (4.0-10.0)
[2016-09-15 07:07] LABS: ANION GAP 6 MEQ/L (8-16); BLOOD UREA NITROGEN 6 MG/DL (7-18); CALCIUM LEVEL 8.9 MG/DL (8.5-10.1); CARBON DIOXIDE LEVEL 30 MEQ/L (21-32); CHLORIDE LEVEL 108 MEQ/L (98-107); CREATININE FOR GFR 0.53 MG/DL (0.55-1.02); GLOMERULAR FILTRATION RATE > 60.0 (>51); GLUCOSE, FASTING 89 MG/DL (70-105); SODIUM LEVEL 144 MEQ/L (136-145)
[2016-09-15] MEDS: oxyCODONE 15 MG CR TAB PO SCH (08:42)
[2016-09-15] MEDS: BACLOFEN 10 MG TAB PO SCH ×2 (08:42→12:35)
[2016-09-15] MEDS: SENNA 8.6 MG TAB (SENOKOT) PO SCH (08:43)
[2016-09-15] MEDS: GABAPENTIN 300 MG CAP PO SCH (08:43)
[2016-09-15] MEDS ORDERED: SALI0.9I2 IV (11:35)
[2016-09-15] MEDS ORDERED: NAFC1INJ IV (11:35)
[2016-09-15] MEDS ORDERED: SENO8.6T2 PO (11:35)
[2016-09-15] MEDS ORDERED: NEUR300C PO (11:35)
[2016-09-15] MEDS ORDERED: HEPA100SY INJ (11:35)
[2016-09-15] MEDS ORDERED: TYLE325T5 PO (11:36)
[2016-09-15] MEDS ORDERED: ENEM1ENE4 PR (11:36)
[2016-09-15] MEDS ORDERED: OXYC-299 PO (11:50)
[2016-09-15 14:00] VITALS: BP 103/73
--- NOTE | 2016-09-15 15:30 | IPNPDOC ---
Text Note Date of Service The patient was seen on 09/15/16. 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 She had a recent laminectomy of L4-L5 on 08/26/16 and presented with leaking from a back wound. Patient was found to have an abscess that was drained upon admission and then subsequently after having recurrent fevers throughout hospital course. Patient was seen and examined at the bedside. She reports no acute problems today. Objective: Vitals (See below) General: Lying in bed, no acute distress, comfortable, AAOx3 HEENT: NC, AT CVS: RRR, +S1S2 Lungs: Fair air entry b/l, -w/r/r Abdomen: Soft, ND, NT, +BSx4 Extremities: +PPx4, - Edema, - Calf tenderness Assessment and plan: 1. Sepsis - 2/2 abscess - 2/2 staph aureus infection - Clinically presented with back pain, drainage and fever; clinically improved - No longer spiking fevers - Leukocytosis improved and CRP trending down - Currently on Nafcillin by Dr. Forbes; will require 3 additional weeks of Nafcillin via PICC line - Has been cleared by physical therapy; discharge planning deferred to primary care team 2. HTN - BP better controlled - c/w lisinopril 3. Lung mass - c/w outpatient followup 4. Constipation - likely 2/2 opiate medications - c/w bowel regiment 5. DVT prophylaxis - c/w SCDs VS,Fishbone, I+O VS, Fishbone, I+O Laboratory Tests 09/15/16 06:30 Calcium Level 8.9, Red Blood Count 3.57 L, Mean Corpuscular Volume 91.8, Mean Corpuscular Hemoglobin 29.9, Mean Corpuscular Hemoglobin Concent 32.6, Red Cell Distribution Width 13.1, Neutrophils (%) (Auto) 43.4, Lymphocytes (%) (Auto) 46.7 H, Monocytes (%) (Auto) 4.9, Eosinophils (%) (Auto) 2.6, Basophils (%) ( Auto) 0.6, Neutrophils # (Auto) 2.4, Lymphocytes # (Auto) 2.6, Monocytes # (Auto ) 0.3, Eosinophils # (Auto) 0.2, Basophils # (Auto) 0.0 Vital Signs Date Time Temp Pulse Resp B/P Pulse Ox O2 Delivery O2 Flow Rate FiO2 09/15/16 14:00 98.8 106 16 103/73 97 Room Air 09/11/16 10:00 I&O- Last 24 Hours up to 6 AM 09/15/16 06:00 Intake Total 1320 ml Output Total 1825 ml Balance -505 ml OSWALDO DE GUZMAN MD Sep 15, 2016 15:30
--- NOTE | 2016-09-15 16:36 | IPNPDOC ---
Text Note Date of Service The patient was seen on 09/15/16. NOTE INFECTIOUS DISEASE PROGRESS NOTE: SUBJECTIVE: Mrs. Salas is doing much better today and is awaiting discharge with hospitalist. Her back pain is well tolerated. Patient denies fevers, chills, nausea, vomiting, diarrhea, abdominal pain. PHYSICAL EXAMINATION: Vital signs: Temperature 97.5; Pulse 93; Respirations: 17, Blood pressure 142/80 , O2 Saturation 100% on room air. On physical exam she is alert and oriented times three. Heart: Normal S1, S2, no murmurs. Lungs: clear bilaterally. No wheezes, rales or rhonchi. Abdomen: Soft, nontender. Back: Incision is clean. Measures about 10cm. No erythema. Minimal tenderness. She has been afebrile for the past 4 days. ASSESSMENT: 55 y/o Female with postoperative wound infection with subdural abscess with culture positive for MSSA. PLAN: The patient will be discharged home on IV nafcillin 12 grams continuous infusion for another 3 weeks, which would be a total of 4 weeks. She had been on IV antibiotics since 09/07. Will have blood work done every week CBC, CRP, sed rate and ESR. Second methicillin-resistant Staphylococcus aureus (MRSA) screen was done and was negative. She will need a third MRSA screen done in a week and if negative she may be considered no longer colonized. Followup with infectious disease, Dr. Forbes in 2-3 weeks. GME ATTESTATION GME ATTESTATION My preceptor for this patient encounter was physically present in the building during the encounter and was fully available. As needed, all aspects of the patient interview, examination, medical decision making process, and medical care plan development were reviewed and approved by the preceptor. Preceptor is aware and concurs with the plan as stated in the body of this note and will attest to such by his/her cosignature. PASTOR HARDY DO Sep 15, 2016 16:36
[2016-09-23] MEDS ORDERED: SOMA350T PO (10:18)
[2016-09-23] MEDS ORDERED: OXYC1TAB23 PO (10:23)
--- NOTE | 2016-10-07 17:58 | DS.PDOC ---
Discharge Summary General Date of Admission Sep 06, 2016 at 19:25 Date of Discharge 09/15/16 Specialist/Consultants Involve: Magaly Forbes MD Specialist/Consultants Involve Dr Kent Discharge Summary PROCEDURES PERFORMED DURING STAY: 09/06/16. Lumbar laminectomy wound exploration and debridement, drainage of serosanguinears collection subcutaneously. 09/10/16. L2-L4 bilateral decompression with lysis of the perineural fibrosis and drainage of localized subarachnoid cyst. ADMITTING DIAGNOSES: 1. Fever 2. Postoperative infection 3. Chronic low back pain DISCHARGE DIAGNOSES: 1. Postoperative infection 2. Fever- resolved 3. Subarachnoid cyst from L2-4-- drained 4. Leukocytosis 5. Constipation 6. Chronic low back pain 7. Opioid dependency COMPLICATIONS/CHIEF COMPLAINT: Fever Post Infection. HISTORY OF PRESENT ILLNESS: Mrs. Salas is a 55-year-old female nonsmoker with a past medical history significant for hypertension, opioid dependence, chronic low back pain, lung mass followed by pulmonary, and history of pancreatitis secondary to alcohol abuse. She had presented to the emergency department on 09/06/16 with complaints of back pain, headache, nausea, vomiting, and fever. She just recently underwent a laminectomy of L4-5 on 08/26/[address] Biggs. Upon discharge at that time, she had noticed improvements in her back pain with radicular symptoms, but then 2 days ago (09/04/16) she notes her back pain began to worsen aas well as headache with nausea and vomiting. Her had noted clear fluid drainage from her bandage. She had a temperature at home of 103 F aand was noted to be 101.6F in the emergency department. Her symptoms were thought to be associated with a postoperative infection and CSF leak, therefore Dr. Biggs was consulted. She was admitted and taken to the OR for evaluation. HOSPITAL COURSE: Her hospital course has been relatively uneventful. Upon admission, her WBC was elevated at 19.1 then trending down to 7.7 on 09/13/16. She had then remained afebrile. Following her first surgery during this admission a collection of fluid was noted on CT of the lumbar at the region of L1, which was just above her surgical site. These findings were discussed with radiology. On 09/10/16 she went back into surgery for drainage of this fluid which was found to be a localized subarachnoid cyst. Her disposition began to improve and she became more stable. DISCHARGE MEDICATIONS: Please see below. ALLERGIES: Please see below. LABORATORY DATA: Please see below. IMAGIN09/06/16. Chest x-ray: No active disease. 09/08/16. Vascular ultrasound: No evidence of DVT in left lower extremity. 09/09/16. MRI lumbar: 1. The patient is status-post L4-5 laminectomy. A disc bulge is present. A small 4 mm fluid collection is present in the left anterior aspect of the spinal canal. There is minimal thecal sac compression. A small amount of granulation tissue is present at the laminectomy site and in the lateral aspect of the spinal canal. 2. There is a fluid collection in the posterior spinal canal that appears to be subdural or epidural in location. This extends from the L1-2 level inferior to L5. There is minimal to mild mass effect on the cauda equina. 09/10/16. Cervical spine CT: .1.No fracture or spondylolisthesis. 2. Straightening of cervical lordosis is seen, suggesting muscular spasm. 3. Multilevel spondylosis. 09/10/16. Thoracic spine CT: Mild spondylosis. 09/10/16. Head CT: Left sphenoid sinusitis. No evidence of acute intracranial pathology. 09/10/16. lumbar spine CT: 1. No fracture or spondylolisthesis. 2. Straightening of lumbar lordosis is seen, suggesting muscular spasm. 3. Left laminectomy at L4 -L5. Associated soft tissue thickening suggestive of epidural fibrosis. Encasement and thickening of the exiting left L5 nerve root within the left anterolateral recess of the spinal canal. 09/10/16 lumbar spine x-ray: Satisfactory alignment. No acute fracture / compression injury or subluxation. 09/10/16 lumbar spine x-ray: Two portable lateral radiographs of the lumbar spine were obtained. The second radiograph demonstrates a metal clamp overlying the neural arch at the L2-3 level. 09/11/16. C-spine MRI: There is cervical spondylosis at the C3-4, C4-5, and C6-7 levels without spinal cord compression. 09/11/16. Guidance needle placement ultrasound: Procedure: PICC line insertion with [facility]. 09/11/16. Lumbar spine CT: Postsurgical changes as described, with subcutaneous emphysema an ill-defined fluid and edema at the surgical site. No discrete loculated fluid collection or abscesses identified at this time. There is no discrete evidence of mass effect or central canal stenosis within the spinal canal. Early changes from infection cannot completely be excluded at this time. Follow-up is recommended as clinically indicated. PROGNOSIS: Stable ACTIVITY: As tolerated. DIET: As tolerated. DISPOSITION: [facility]. DISCHARGE PLAN AND INSTRUCTIONS: The following discharge instructions have been discussed with the patient and her . 1. Keep area of incision and bandage completely dry until at least 2 weeks for follow-up in the office. 2. Monitor for signs and symptoms of infection is discussed. 3. She is to call the office to schedule her follow-up appointment, if any new signs or symptoms, or any questions. 4. She is to continue pre-admission medications. 5. Fall precautions. 6. No driving for at least 2 weeks. All questions have been answered to patient and her 's satisfaction. She understands and is aware of possible catastrophic sequela if she does not follow his recommendations. She agrees to follow-up in the office within 2 weeks or sooner if needed. DISCHARGE CONDITION: Stable. TIME SPENT ON DISCHARGE: Greater than 50 minutes. Discharge Medications Scheduled Baclofen (Baclofen) 20 Mg Tab 20 MG PO TID (Reported) Cetirizine HCl (Cetirizine HCl) 10 Mg Tab 10 MG PO QHS (Reported) Gabapentin (Neurontin) 300 Mg Cap 300 MG PO TID (Reported) Hydromorphone HCl (Hydromorphone HCl) 2 Mg Tab 2 MG PO Q8H break through pain only Lisinopril (Lisinopril) 20 Mg Tab 20 MG PO QHS (Reported) Oxycodone HCl (Oxycontin) 10 Mg Tab 1 TAB PO BID (Reported) Polyethylene Glycol (Miralax) 1 Pow Pow 17 GM PO QHS (Reported) Senna (Senna Lax) 8.6 Mg Tab 2 TAB PO QHS (Reported) Scheduled PRN Acetaminophen (Tylenol) 325 Mg Tab 650 MG PO Q4HP PRN PRN PAIN / FEVER (Reported ) Oxycodone/Acetaminophen (Percocet 5-325 mg) 1 Tab Tab 1 TAB PO Q6H PRN PRN PAIN (Reported) Allergies Coded Allergies: Latex (Verified Allergy, Intermediate, rash, 09/23/16) Morphine (Verified Adverse Reaction, Mild, vomiting, 08/21/16) WIL MCCLURE PA-C Oct 07, 2016 17:04
== END 2016-09-15 15:17 | disposition home health service (06) | DRG 711 ==
LOC: M ED 18:28 → M ED INP 19:25 → OBSVTOIN 19:25 → INTOOBSV 19:25 → M MSPAV 23:20 → OBSVTOIN 09-09 09:47 → INTOOBSV 09-09 09:47
PROVIDERS: ADMIT Neurological Surgery; ATTEND Neurological Surgery
PROC: 0J970ZZ Drainage of Back Subcutaneous Tissue and Fascia, Open Approach (ICD-10-PCS; 2016-09-06)
PROC: 0QN00ZZ Release Lumbar Vertebra, Open Approach (ICD-10-PCS; 2016-09-06)
PROC: 0HB6XZZ Excision of Back Skin, External Approach (ICD-10-PCS; principal; 2016-09-06 20:15)
PROC: 009 Central Nervous System and Cranial Nerves, Drainage (ICD-10-PCS; 2016-09-10)
PROC: 02HV33Z Insertion of Infusion Device into Superior Vena Cava, Percutaneous Approach (ICD-10-PCS; 2016-09-11)
DX: T81.4XXA Infection following a procedure, initial encounter (principal); A41.01 Sepsis due to Methicillin susceptible Staphylococcus aureus; G60.2 Neuropathy in association with hereditary ataxia; F11.20 Opioid dependence, uncomplicated; K59.00 Constipation, unspecified; M54.5 Low back pain; I10 Essential (primary) hypertension; R91.8 Other nonspecific abnormal finding of lung field; G93.0 Cerebral cysts; M47.812 Spondylosis without myelopathy or radiculopathy, cervical region; Z79.899 Other long term (current) drug therapy; Z88.5 Allergy status to narcotic agent; Z91.040 Latex allergy status

== ENCOUNTER → 2016-09-21 | Outpatient (REF) | payer OTHER ==
[~2016-09-21] MED LIST changes: +BACL-67 PO; +CETI10TA PO; +ENEM1ENE4 PR; +HEPA100SY INJ; +MINEOIL3 PO; +NAFC1INJ IV; +NEUR300C PO; +OXYC-299 PO; +OXYC1TAB23 PO; +SALI0.9I2 IV; +SENO8.6T2 PO; +SOMA350T PO; +TYLE325T5 PO
[2016-09-21 14:11] LABS: BASO % 0.4 % (0.0-1.0); EOS # 0.1 K/mm3 (0.0-0.50); EOS % 2.4 % (0.0-3.0); LARGE UNSTAINED CELL # 0.1 K/mm3 (0.0-0.4); LYMPH # 1.8 K/mm3 (1.5-4.5); LYMPH % 42.2 % (24.0-44.0); MEAN CORPUSCULAR HEMOGLOBIN 29.8 pg (27.0-33.0); MEAN CORPUSCULAR HGB CONC 31.3 g/dl (32.0-36.5); MEAN CORPUSCULAR VOLUME 95.2 fl (80.0-96.0); MONO # 0.3 K/mm3 (0.0-0.8); MONO % 6.7 % (0.0-5.0); NEUTROPHILS # 1.8 K/mm3 (1.8-7.7); NEUTROPHILS % 46.3 % (36.0-66.0); PLATELET COUNT, AUTOMATED 511 k/mm3 (150-450); RED CELL DISTRIBUTION WIDTH 15.3 % (11.5-14.5)
[2016-09-21 15:06] LABS: ERYTHROCYTE SEDIMENTATION RATE 32 mm/hr (0-30)
[2016-09-21 15:12] LABS: ANION GAP 7 MEQ/L (8-16); BLOOD UREA NITROGEN 10 MG/DL (7-18); CALCIUM LEVEL 8.5 MG/DL (8.5-10.1); CARBON DIOXIDE LEVEL 25 MEQ/L (21-32); CHLORIDE LEVEL 110 MEQ/L (98-107); CREATININE FOR GFR 0.51 MG/DL (0.55-1.02); GLOMERULAR FILTRATION RATE > 60.0 (>51); GLUCOSE, FASTING 88 MG/DL (70-105); SODIUM LEVEL 142 MEQ/L (136-145)
== END ==
LOC: M LAB REF 13:43
PROVIDERS: ATTEND Internal Medicine Infectious Disease
DX: T81.4XXA Infection following a procedure, initial encounter (principal)

== ENCOUNTER 2016-09-23 16:11 | Inpatient (IN) | payer OTHER ==
[~2016-09-23] VITALS: Ht 165.1 cm; Wt 57.5 kg
[~2016-09-23 16:11] MED LIST changes: -MINEOIL3 PO
[2016-09-23] MEDS ORDERED: THROMBIN SOLN 20,000 UNITS KIT As Ordered ONE (16:58)
[2016-09-23] MEDS ORDERED: methylPREDNISolone SUSP 40 MG/ML (DEPO-medrol) VIAL (J1030) As Ordered ONE (16:59)
[2016-09-23] MEDS ORDERED: BACITRACIN PWD 50,000 UNITS VIAL As Ordered ONE (16:59)
[2016-09-23] MEDS ORDERED: HYDROmorphone HCL 2 MG/ML 1ML VIAL (J1170) IV ONE (17:30)
[2016-09-23] MEDS ORDERED: HYDROmorphone HCL 1 MG/ML SYRINGE (J1170) IV ONE ×2 (18:00→21:00)
[2016-09-23 18:44] LABS: BASO % 0.4 % (0.0-1.0); EOS # 0.1 K/mm3 (0.0-0.50); EOS % 2.1 % (0.0-3.0); LARGE UNSTAINED CELL # 0.1 K/mm3 (0.0-0.4); LARGE UNSTAINED CELL % 2.5 % (0.0-4.0); LYMPH # 2.4 K/mm3 (1.5-4.5); LYMPH % 50.7 % (24.0-44.0); MEAN CORPUSCULAR HEMOGLOBIN 29.8 pg (27.0-33.0); MEAN CORPUSCULAR HGB CONC 31.5 g/dl (32.0-36.5); MEAN CORPUSCULAR VOLUME 94.4 fl (80.0-96.0); MONO # 0.3 K/mm3 (0.0-0.8); NEUTROPHILS # 1.7 K/mm3 (1.8-7.7); NEUTROPHILS % 38.2 % (36.0-66.0); PLATELET COUNT, AUTOMATED 426 k/mm3 (150-450); RED CELL DISTRIBUTION WIDTH 15.6 % (11.5-14.5); WHITE BLOOD COUNT 4.5 K/mm3 (4.0-10.0)
[2016-09-23 18:49] LABS: INR 0.95
--- NOTE | 2016-09-23 18:54 | REP ---
Chest one-view HISTORY: Postop Comparison: 09/06/2016 The lungs are clear. The heart is normal in size. The pulmonary vasculature is normal in appearance. A PICC line is present in the superior vena cava. Impression: No acute disease. Signed by Kushal Browning MD 09/23/2016 06:45 P
[2016-09-23 19:13] LABS: ANION GAP 8 MEQ/L (8-16); BLOOD UREA NITROGEN 9 MG/DL (7-18); CALCIUM LEVEL 8.5 MG/DL (8.5-10.1); CARBON DIOXIDE LEVEL 26 MEQ/L (21-32); CHLORIDE LEVEL 110 MEQ/L (98-107); CREATININE FOR GFR 0.53 MG/DL (0.55-1.02); GLOMERULAR FILTRATION RATE > 60.0 (>51); GLUCOSE, FASTING 84 MG/DL (70-105); POTASSIUM SERUM 3.5 MEQ/L (3.5-5.1); SODIUM LEVEL 144 MEQ/L (136-145)
[2016-09-23] MEDS: SODIUM CHLORIDE 0.9% INJ 10 ML SYR IV PRN (19:42)
[2016-09-23] MEDS ORDERED: HYDROmorphone HCL 1 MG/ML SYRINGE (J1170) As Ordered ONE (22:15)
--- NOTE | 2016-09-23 22:27 | ECGEPIP ---
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 Decreased heart rate compared with 09/06/2016. Electronically Signed On 09-23-2016 22:27:09 EDT by Louie Elena
[2016-09-23] MEDS ORDERED: HYDROmorphone HCL 2 MG/ML 1ML VIAL (J1170) IV PRN (22:30)
[2016-09-23 22:50] VITALS: BP 139/94
[2016-09-23] MEDS ORDERED: HYDROmorphone HCL 1 MG/ML SYRINGE (J1170) IV PRN (22:50)
--- NOTE | 2016-09-24 00:10 | REPUSA ---
HISTORY: CSF fistula. Prior back surgeries. Pain. TECHNIQUE: A pre- and post-contrast MR study of the lumbar spine was performed. COMPARISON: No prior MRI of the lumbar spine is available for review. The report of the CT study of September 10, 2016 describes, among other findings, post-surgical changes, an appearance suggesting epidural fibrosis, and thickening of the left L5 nerve. The report of the C T study dated September 11, 2016 describes postsurgical changes, subcutaneous emphysema, and an ill-defin ed fluid collection as the surgical site. FINDINGS: Post-laminectomy change is again noted. There is T1 hyperintensity and T2 hyperintensity in the post erior soft tissues extending from approximately the L2-L3 level superiorly to the S1 level inferiorly . This T2 hyperintensity appears to predominantly reflect fluid. It may represent a sterile postoper ative fluid collection. It could reflect an abscess, in the appropriate clinical setting. Some ashwin inal enhancement is noted on the postcontrast images. Edema is seen in the adjacent soft tissues. T here are findings that are compatible with the presence of air in the soft tissues, as shown on the C T study done on September 11, 2016, with small foci of susceptibility artifact. No evidence of an epidural abscess cavity is identified within the lumbar spinal canal. No evidence of osteomyelitis is seen within the lumbar vertebral bodies. There are no findings suspicious for donna mbar discitis. The conus medullaris is normal in position. No abnormal signal or abnormal enhancement is identified in the conus medullaris. There is evidence of a posterior disc protrusion at L4-L5 producing a small ventral epidural impressi on. The remainder of the examination is without significant pathologic interim change as compared wi thee CT dated 09/11/16. IMPRESSION: 1. Fluid collection in the posterior soft tissues of the back corresponding to the finding noted on the recent CT study of September 11, 2016. It is uncertain on the basis of this study whether this refle cts an uninfected or infected postoperative fluid collection. 2. No evidence of epidural abscess collection identified in the lumbar spinal canal. 3. No evidence of osteomyelitis in the lumbar vertebral bodies. There is no evidence of lumbar disc itis. Thank you for your kind referral of this patient. We appreciate the opportunity to participate in [facility] patient's care.
[2016-09-24] MEDS: NAFCILLIN SOD 2 GM in D5W MINI-BAG PLUS 100 ML IV SCH ×6 (02:17→21:02)
[2016-09-24] MEDS: HYDROmorphone HCL 2 MG/ML 1ML VIAL (J1170) IV PRN ×3 (02:40→13:34)
[2016-09-24 04:45] VITALS: BP 145/84
[2016-09-24] MEDS: SODIUM CHLORIDE 0.9% INJ 10 ML SYR IV SCH ×2 (05:30→17:48)
[2016-09-24] MEDS ORDERED: HYDR2TAB2 PO (05:53)
[2016-09-24] MEDS ORDERED: MINEOIL3 PO (05:53)
[2016-09-24 06:08] LABS: ALBUMIN 2.9 GM/DL (3.2-5.2); ALBUMIN/GLOBULIN RATIO 0.94 (1.00-1.93); ALKALINE PHOSPHATASE 52 U/L (45-117); ALT/SGPT 58 U/L (12-78); ANION GAP 6 MEQ/L (8-16); AST/SGOT 55 U/L (15-37); BILIRUBIN,TOTAL 0.8 MG/DL (0.2-1.0); BLOOD UREA NITROGEN 6 MG/DL (7-18); CALCIUM LEVEL 8.3 MG/DL (8.5-10.1); CARBON DIOXIDE LEVEL 27 MEQ/L (21-32); CHLORIDE LEVEL 109 MEQ/L (98-107); CREATININE FOR GFR 0.47 MG/DL (0.55-1.02); GLOMERULAR FILTRATION RATE > 60.0 (>51); GLUCOSE, FASTING 95 MG/DL (70-105); POTASSIUM SERUM 3.2 MEQ/L (3.5-5.1); SODIUM LEVEL 142 MEQ/L (136-145)
[2016-09-24 06:13] LABS: BASO % 0.6 % (0.0-1.0); EOS # 0.1 K/mm3 (0.0-0.50); EOS % 2.7 % (0.0-3.0); LARGE UNSTAINED CELL # 0.1 K/mm3 (0.0-0.4); LARGE UNSTAINED CELL % 2.5 % (0.0-4.0); LYMPH # 2.2 K/mm3 (1.5-4.5); LYMPH % 48.3 % (24.0-44.0); MEAN CORPUSCULAR HEMOGLOBIN 30.3 pg (27.0-33.0); MEAN CORPUSCULAR HGB CONC 32.5 g/dl (32.0-36.5); MEAN CORPUSCULAR VOLUME 93.5 fl (80.0-96.0); MONO # 0.3 K/mm3 (0.0-0.8); MONO % 7.9 % (0.0-5.0); NEUTROPHILS # 1.6 K/mm3 (1.8-7.7); PLATELET COUNT, AUTOMATED 403 k/mm3 (150-450); RED CELL DISTRIBUTION WIDTH 15.9 % (11.5-14.5); WHITE BLOOD COUNT 4.2 K/mm3 (4.0-10.0)
[2016-09-24 08:00] VITALS: BP 162/103
[2016-09-24] MEDS ORDERED: ONDANSETRON 4MG/2ML VIAL (J2405) As Ordered ONE (08:18)
[2016-09-24] MEDS: ONDANSETRON 4MG/2ML VIAL (J2405) IV PRN ×2 (08:23→19:44)
[2016-09-24] MEDS: ACETAMINOPHEN TAB 650MG DOSE (2X325MG) PO PRN (09:39)
[2016-09-24] MEDS: SODIUM CHLORIDE 0.9% INJ 10 ML SYR IV PRN ×2 (10:52→15:35)
[2016-09-24 12:00] VITALS: BP 140/85
[2016-09-24] MEDS ORDERED: NALOXONE INJ 0.4 MG/1 ML VIAL (J2310) As Ordered ONE (13:50)
[2016-09-24] MEDS ORDERED: NALOXONE INJ 0.4 MG/1 ML VIAL (J2310) IV STA (13:53)
[2016-09-24] MEDS ORDERED: KETOROLAC 30 MG/ML VIAL (J1885) As Ordered ONE (13:57)
[2016-09-24] MEDS ORDERED: KETOROLAC 30 MG/ML VIAL (J1885) IV ONE (14:00)
[2016-09-24] MEDS ORDERED: D5W/0.45% SODIUM CHLORIDE 1,000 ML IV SCH (14:15)
[2016-09-24] MEDS ORDERED: PROMETHAZINE INJ 25 MG/ML VIAL (J2550) IV ONE (14:15)
[2016-09-24] MEDS: KCL 20MEQ IN D5/0.45NS 1000ML 1,000 ML IV SCH (15:34)
[2016-09-24 15:44] VITALS: BP 143/90
[2016-09-24 19:39] VITALS: BP 127/89
[2016-09-24] MEDS: oxyCODONE 10 MG CR TAB PO SCH (20:03)
[2016-09-24] MEDS ORDERED: oxyCODONE 10 MG CR TAB PO SCH (21:00)
[2016-09-24] MEDS: PERCOCET 5MG/325MG TAB PO PRN (22:01)
[2016-09-24 23:59] VITALS: BP 122/80
[2016-09-25] VITALS (9 sets, daily range): BP systolic 127–153; BP diastolic 78–96; O2SAT 96–97
[2016-09-25] MEDS: KCL 20MEQ IN D5/0.45NS 1000ML 1,000 ML IV SCH ×3 (00:08→16:30)
[2016-09-25] MEDS ORDERED: KETOROLAC 30 MG/ML VIAL (J1885) IV ONE (00:30)
[2016-09-25] MEDS ORDERED: GABAPENTIN 300 MG CAP PO ONE (00:45)
[2016-09-25] MEDS ORDERED: BACLOFEN 10 MG TAB PO ONE (00:45)
[2016-09-25] MEDS: NAFCILLIN SOD 2 GM in D5W MINI-BAG PLUS 100 ML IV SCH ×6 (00:57→20:15)
[2016-09-25] MEDS: PERCOCET 5MG/325MG TAB PO PRN ×4 (04:28→22:34)
[2016-09-25] MEDS: SODIUM CHLORIDE 0.9% INJ 10 ML SYR IV SCH ×2 (06:16→18:05)
[2016-09-25] MEDS: GABAPENTIN 300 MG CAP PO SCH ×3 (07:53→20:15)
[2016-09-25] MEDS: BACLOFEN 10 MG TAB PO SCH ×3 (07:53→20:14)
[2016-09-25] MEDS: oxyCODONE 10 MG CR TAB PO SCH ×2 (07:53→20:13)
[2016-09-25 10:32] LABS: MEAN CORPUSCULAR HEMOGLOBIN 30.7 pg (27.0-33.0); RED CELL DISTRIBUTION WIDTH 15.9 % (11.5-14.5); WHITE BLOOD COUNT 2.9 K/mm3 (4.0-10.0)
[2016-09-25 10:59] LABS: ANION GAP 8 MEQ/L (8-16); BLOOD UREA NITROGEN 6 MG/DL (7-18); CALCIUM LEVEL 8.6 MG/DL (8.5-10.1); CARBON DIOXIDE LEVEL 26 MEQ/L (21-32); CHLORIDE LEVEL 109 MEQ/L (98-107); CREATININE FOR GFR 0.54 MG/DL (0.55-1.02); GLOMERULAR FILTRATION RATE > 60.0 (>51); GLUCOSE, FASTING 87 MG/DL (70-105); POTASSIUM SERUM 3.8 MEQ/L (3.5-5.1); SODIUM LEVEL 143 MEQ/L (136-145)
[2016-09-25 11:18] LABS: COLLAGEN ADP 140 SECONDS (56-103)
--- NOTE | 2016-09-25 14:47 | IPNPDOC ---
Date Seen The patient was seen on 09/25/16. Progress Note NEUROSURGERY SUBJECTIVE: Patient is a 55 year old female here for evaluation regarding drainage on her bandage over the lumbar region post op. She has been previously admitted to the hospital on for increased pain in the low back region at the site of her previous incision and drainage on her bandage. She underwent a wound exploration surgery and was found to have a fluid collection above the surgical site which was drained surgically. Her disposition began to improve and she was discharged home. Today, she states she was following up with her primary care physician and drainage was noted on her bandage. A picture was sent to Dr. Da Silva who recommended further evaluation regarding this drainage. She states she had been doing very well at home. She was ambulating without difficulty. She had a headache and a few episodes of vomiting yesterday and was given Toradol and Zofran. This has significantly improved her headache and vomiting symptoms. She states she is feeling well and the pain has been manageable. Her weakness in her lower extremities has been improving. She states at this time she would like to avoid any further surgeries unless absolutely necessary. OBJECTIVE PHYSICAL EXAMINATION: VITAL SIGNS: Please see below. Patient has been afebrile. GENERAL: Alert and oriented 3. She is sitting comfortably on the bed. She appears to be in no acute distress. SKIN: Small bandage covering the previous site of incision over the lumbar spine. Bandage is dry. There is no surrounding erythema or swelling noted around the bandage. Mild surrounding tenderness. No other rashes, ecchymosis, erythema, or lesions noted. HEENT: Normocephalic/atraumatic, symmetrical. Scalp is intact without lesions, deformities, or tenderness. She is wearing glasses. Corneas are clear. Conjunctivae pink and moist. RESPIRATORY: She is breathing comfortably. NEUROLOGICAL: No focal deficits noted. No changes since prior examination. PSYCHOLOGICAL: Mood is stable. LABORATORY DATA: Please see below. WBC within normal range. IMAGING: MRI of the lumbosacral spine performed on 09/23/2016 shows: 1. Fluid collection in the posterior soft tissues of the back corresponding to the finding noted on the recent CT study of September 11, 2016. It is uncertain on the basis of this study whether this reflects an uninfected or infected postoperative fluid collection. 2. No evidence of epidural abscess collection identified in the lumbar spinal canal. 3. No evidence of osteomyelitis in the lumbar vertebral bodies. There is no evidence of lumbar discitis. ASSESSMENT AND PLAN: Low back pain postop, with drainage over bandage per patient. Bandage has been relatively dry today. We'll continue to monitor for any wound drainage. Wil Grayson RPA-C VS, I&O, 24H, Fishbone Vital Signs/I&O Vital Signs Date Time Temp Pulse Resp B/P Pulse Ox O2 Delivery O2 Flow Rate FiO2 09/25/16 07:53 20 09/25/16 04:58 77 138/96 98 Room Air 09/25/16 04:45 97.0 I&O- Last 24 Hours up to 6 AM 09/25/16 06:00 Intake Total 1500 ml Output Total 2150 ml Balance -650 ml Attending Note Attending Note Neurosurgery As above, patient is alert, cheerful, denies much of pain, though she states by that she means she still has base line pain for which she has been on Percocet and OxyContin, Baclofen, and Gabapentin. WBC down. Will request Dr. whitt to see the patient. WIL GRAYSON PA-C Sep 25, 2016 09:19 HOWIE DA SILVA MD Sep 25, 2016 16:19
[2016-09-25] MEDS: KETOROLAC 30 MG/ML VIAL (J1885) IV PRN (20:14)
[2016-09-25] MEDS: SODIUM CHLORIDE 0.9% INJ 10 ML SYR IV PRN (20:15)
[2016-09-26] VITALS (14 sets, daily range): BP systolic 140–173; BP diastolic 90–114; O2SAT 95–98
[2016-09-26] MEDS: KCL 20MEQ IN D5/0.45NS 1000ML 1,000 ML IV SCH ×3 (00:30→21:26)
[2016-09-26] MEDS: NAFCILLIN SOD 2 GM in D5W MINI-BAG PLUS 100 ML IV SCH ×6 (00:30→21:22)
[2016-09-26] MEDS: KETOROLAC 30 MG/ML VIAL (J1885) IV PRN ×4 (04:55→21:25)
[2016-09-26] MEDS: SODIUM CHLORIDE 0.9% INJ 10 ML SYR IV SCH ×2 (04:55→21:26)
[2016-09-26] MEDS: PERCOCET 5MG/325MG TAB PO PRN ×3 (06:07→22:58)
[2016-09-26] MEDS: GABAPENTIN 300 MG CAP PO SCH ×3 (09:44→21:25)
[2016-09-26] MEDS: BACLOFEN 10 MG TAB PO SCH ×3 (09:44→21:25)
[2016-09-26] MEDS: oxyCODONE 10 MG CR TAB PO SCH ×2 (09:45→21:24)
[2016-09-26 11:49] LABS: MEAN CORPUSCULAR HEMOGLOBIN 30.6 pg (27.0-33.0); MEAN CORPUSCULAR HGB CONC 31.7 g/dl (32.0-36.5); MEAN CORPUSCULAR VOLUME 96.5 fl (80.0-96.0); WHITE BLOOD COUNT 2.9 K/mm3 (4.0-10.0)
[2016-09-26] MEDS ORDERED: methylPREDNISolone SUSP 40 MG/ML (DEPO-medrol) VIAL (J1030) As Ordered ONE (16:08)
[2016-09-26] MEDS ORDERED: THROMBIN SOLN 20,000 UNITS KIT As Ordered ONE (16:08)
[2016-09-26] MEDS ORDERED: BACITRACIN PWD 50,000 UNITS VIAL As Ordered ONE (16:09)
[2016-09-26] MEDS ORDERED: ONDANSETRON 4MG/2ML VIAL (J2405) As Ordered ONE ×2 (17:03→19:25)
[2016-09-26] MEDS ORDERED: METOCLOPRAMIDE INJ 10MG/2ML VIAL (J2765) As Ordered ONE (17:03)
[2016-09-26] MEDS ORDERED: PROPOFOL 200 MG/20 ML VIAL As Ordered ONE (17:03)
[2016-09-26] MEDS ORDERED: fentaNYL 250 MCG/5 ML INJECTION (J3010) As Ordered ONE (17:03)
[2016-09-26] MEDS ORDERED: LIDOCAINE 2% INJ 100 MG/5 ML SDV (FOR ANES.) As Ordered ONE (17:03)
[2016-09-26] MEDS ORDERED: ROCURONIUM BROMIDE 50 MG/5 ML VIAL As Ordered ONE (17:04)
[2016-09-26] MEDS ORDERED: NEOSTIGMINE 1MG/ML 5 ML SYRINGE (J2710) As Ordered ONE (17:04)
[2016-09-26] MEDS ORDERED: SUCCINYLCHOLINE 100 MG/5 ML SYRINGE (J0330) As Ordered ONE (17:04)
[2016-09-26] MEDS ORDERED: GLYCOPYRROLATE INJ 0.2 MG/ML 2 ML VIAL As Ordered ONE (17:04)
[2016-09-26] MEDS ORDERED: SUGAMMADEX SODIUM 500 MG/5 ML VIAL (BRIDION) As Ordered ONE (18:11)
[2016-09-26] MEDS ORDERED: fentaNYL 100 MCG/2 ML INJECTION (J3010) IV PRN (19:00)
[2016-09-26] MEDS ORDERED: ONDANSETRON 4MG/2ML VIAL (J2405) IV PRN (19:00)
[2016-09-26] MEDS ORDERED: LR 1,000 ML IV SCH (19:00)
[2016-09-26] MEDS ORDERED: HYDROmorphone HCL 1 MG/ML SYRINGE (J1170) As Ordered ONE ×2 (19:20→19:42)
[2016-09-26] MEDS: HYDROmorphone HCL 1 MG/ML SYRINGE (J1170) IV PRN ×5 (19:26→20:01)
[2016-09-26] MEDS ORDERED: KCL 20MEQ IN D5/.45NACL 1000ML As Ordered ONE (19:34)
[2016-09-26] MEDS: SODIUM CHLORIDE 0.9% INJ 10 ML SYR IV PRN (22:57)
[2016-09-27] VITALS (16 sets, daily range): BP systolic 112–184; BP diastolic 74–107; O2SAT 98–100
[2016-09-27] MEDS: ONDANSETRON 4MG/2ML VIAL (J2405) IV PRN ×4 (01:26→19:31)
[2016-09-27] MEDS: SODIUM CHLORIDE 0.9% INJ 10 ML SYR IV PRN ×4 (01:26→22:42)
[2016-09-27] MEDS: NAFCILLIN SOD 2 GM in D5W MINI-BAG PLUS 100 ML IV SCH ×6 (01:26→21:59)
[2016-09-27] MEDS: HYDROmorphone HCL 1 MG/ML SYRINGE (J1170) IV PRN ×4 (01:26→19:31)
[2016-09-27] MEDS: PERCOCET 5MG/325MG TAB PO PRN ×3 (05:47→23:39)
[2016-09-27] MEDS: KCL 20MEQ IN D5/0.45NS 1000ML 1,000 ML IV SCH (05:47)
[2016-09-27] MEDS: SODIUM CHLORIDE 0.9% INJ 10 ML SYR IV SCH ×2 (05:48→17:05)
[2016-09-27 06:43] LABS: ALBUMIN 2.8 GM/DL (3.2-5.2); ALBUMIN/GLOBULIN RATIO 1.08 (1.00-1.93); ALKALINE PHOSPHATASE 47 U/L (45-117); ALT/SGPT 45 U/L (12-78); ANION GAP 9 MEQ/L (8-16); AST/SGOT 33 U/L (15-37); BILIRUBIN,TOTAL 0.7 MG/DL (0.2-1.0); BLOOD UREA NITROGEN 4 MG/DL (7-18); CALCIUM LEVEL 8.6 MG/DL (8.5-10.1); CARBON DIOXIDE LEVEL 25 MEQ/L (21-32); CHLORIDE LEVEL 108 MEQ/L (98-107); CREATININE FOR GFR 0.56 MG/DL (0.55-1.02); GLOMERULAR FILTRATION RATE > 60.0 (>51); GLUCOSE, FASTING 81 MG/DL (70-105); POTASSIUM SERUM 3.9 MEQ/L (3.5-5.1); SODIUM LEVEL 142 MEQ/L (136-145); TOTAL PROTEIN 5.4 GM/DL (6.4-8.2)
[2016-09-27] MEDS: KETOROLAC 30 MG/ML VIAL (J1885) IV PRN ×3 (06:45→21:58)
[2016-09-27 06:51] LABS: BASO % 0.4 % (0.0-1.0); EOS # 0.1 K/mm3 (0.0-0.50); EOS % 2.3 % (0.0-3.0); LARGE UNSTAINED CELL # 0.1 K/mm3 (0.0-0.4); LARGE UNSTAINED CELL % 1.7 % (0.0-4.0); LYMPH # 1.9 K/mm3 (1.5-4.5); LYMPH % 42.6 % (24.0-44.0); MEAN CORPUSCULAR HEMOGLOBIN 30.6 pg (27.0-33.0); MEAN CORPUSCULAR VOLUME 95.6 fl (80.0-96.0); MONO # 0.4 K/mm3 (0.0-0.8); MONO % 8.3 % (0.0-5.0); NEUTROPHILS % 44.8 % (36.0-66.0); PLATELET COUNT, AUTOMATED 329 k/mm3 (150-450); RED CELL DISTRIBUTION WIDTH 15.9 % (11.5-14.5); WHITE BLOOD COUNT 4.4 K/mm3 (4.0-10.0)
[2016-09-27 07:41] LABS: ERYTHROCYTE SEDIMENTATION RATE 16 mm/hr (0-30)
[2016-09-27] MEDS ORDERED: MIDAZOLAM INJ 2 MG/2 ML VIAL (J2250) As Ordered ONE (08:17)
--- NOTE | 2016-09-27 08:43 | RO ---
DATE OF PROCEDURE: 09/26/2016 PREPROCEDURE DIAGNOSIS: Cerebrospinal fluid fistula, lumbar wound. POSTPROCEDURE DIAGNOSIS: Cerebrospinal fluid fistula, lumbar wound. PROCEDURE PERFORMED: Wound exploration and reinforcement of the suture line. SURGEON: Derik Biggs MD CONTROL CLERK SUBASSEMBLY: ANESTHESIA: General. FINDINGS: The patient had intermittent stain on her dressing and it was absorbed. She has a CSF fistula, though she denied any symptoms until in the preoperative area. She had lumbar surgery, which was complicated with infection and also she developed large subarachnoid cyst, which was drained on 09/10/2016. The patient denied any preoperative low back or leg pain. She says that her major issue has been the headaches and pressure in her lower back. The patient was aware of all options, risks, scope, complications of proposed salvage exploration. She understood the grave outlook and many discussions were held with her and her and they eventually decided to proceed with wound exploration. They understood that no guarantees of any kind could be given and the understood the risk of surgery included , paralysis, meningitis, persistence or worsening of spinal fluid leakage if she has any, pulmonary embolism, deep vein thrombosis (DVT), myocardial infarction, excess bleeding, and/or any catastrophic sequelae. DESCRIPTION OF PROCEDURE: After informed consent and at her request, she was taken to the operating room. Once in the operating room, general endotracheal anesthesia was given by the anesthesia service. The area was prepped and draped in the usual sterile fashion after placing her prone on the translucent Joshua frame. After adequate prep and drape, the previous incision was opened. Cerebrospinal fluid collection was seen in the subcutaneous layers. The lumbodorsal fascia was opened where the CSF collection was also aspirated. It appeared clear. The three suture lines were inspected. The dura was approximated nicely, though at the site of the suture, there was small ooze around a couple of the suture lines at L2-L3 dural incision. Using three #4-0 silk sutures, the dural suture line was reinforced, which stopped the leak of the CSF. Blood loss was negligible. At this time, the wound was closed in anatomic layers. The healing was very poor of all layers, including the lumbodorsal fascia. The dura appeared somewhat friable. No obvious overt signs of infection were identified. The previous skin incision was encircled and the wound was closed in anatomic layers. The patient tolerated the procedure well.
[2016-09-27] MEDS: GABAPENTIN 300 MG CAP PO SCH ×3 (08:58→21:58)
[2016-09-27] MEDS: BACLOFEN 10 MG TAB PO SCH ×3 (08:58→21:57)
[2016-09-27] MEDS: oxyCODONE 10 MG CR TAB PO SCH ×2 (08:59→21:58)
--- NOTE | 2016-09-27 13:36 | IPNPDOC ---
Date Seen The patient was seen on 09/27/16. Progress Note NEUROSURGERY SUBJECTIVE: Patient is a 55 year old female s/p surgical wound exploration on 09/26/16. States she is doing well today. Her headache has improved since prior to the surgery. States headache is still there but improved when head of bed is at 30 degrees. She is using an ice pack at the base of the neck which is helping as well. Pain has been tolerable. Zofran is helping with her nausea. Denies any new symptoms. OBJECTIVE PHYSICAL EXAMINATION: VITAL SIGNS: Please see below. Patient has been afebrile. GENERAL: Alert and oriented 3. She is sitting comfortably on the bed. She appears to be in no acute distress. SKIN: Bandage is dry. There is no surrounding erythema or swelling noted around the bandage. Mild surrounding tenderness. No other rashes, ecchymosis, erythema , or lesions noted. HEENT: Normocephalic/atraumatic, symmetrical. Scalp is intact without lesions, deformities, or tenderness. She is wearing glasses. Corneas are clear. Conjunctivae pink and moist. RESPIRATORY: She is breathing comfortably. NEUROLOGICAL: No focal deficits noted. No changes since prior examination. PSYCHOLOGICAL: Mood is stable. LABORATORY DATA: Please see below. WBC at 4.4, increased from a low of 2.9 yesterday. Cultures taken 09/26/16 are pending. IMAGING: MRI of the lumbosacral spine performed on 09/23/2016 shows: 1. Fluid collection in the posterior soft tissues of the back corresponding to the finding noted on the recent CT study of September 11, 2016. It is uncertain on the basis of this study whether this reflects an uninfected or infected postoperative fluid collection. 2. No evidence of epidural abscess collection identified in the lumbar spinal canal. 3. No evidence of osteomyelitis in the lumbar vertebral bodies. There is no evidence of lumbar discitis. ASSESSMENT AND PLAN: S/p surgical wound exploration 09/26/16. Bandage has been dry today per nursing staff. Cultures pending. Will continue to monitor. Argelia Grayson RPA-C VS, I&O, 24H, Fishbone Vital Signs/I&O Vital Signs Date Time Temp Pulse Resp B/P Pulse Ox O2 Delivery O2 Flow Rate FiO2 09/27/16 12:18 20 Nasal Cannula 2.0 09/27/16 10:00 98.7 74 176/96 100 I&O- Last 24 Hours up to 6 AM 09/27/16 06:00 Intake Total 3890 ml Output Total 3000 ml Balance 890 ml Laboratory Data 24H LABS Laboratory Tests 2 09/27/16 06:01: Blood Urea Nitrogen 4L, Creatinine 0.56, Sodium Level 142, Potassium Level 3.9, Chloride Level 108H, Carbon Dioxide Level 25, Calcium Level 8.6, Aspartate Amino Transf (AST/SGOT) 33, Alanine Aminotransferase (ALT/SGPT) 45, Alkaline Phosphatase 47, Total Bilirubin 0.7, Total Protein 5.4L, Albumin 2.8L, Albumin/ Globulin Ratio 1.08, Anion Gap 9, White Blood Count 4.4, Red Blood Count 3.37L, Hemoglobin 10.3L, Hematocrit 32.2L, Mean Corpuscular Volume 95.6, Mean Corpuscular Hemoglobin 30.6, Mean Corpuscular Hemoglobin Concent 32.0, Red Cell Distribution Width 15.9H, Platelet Count 329, Neutrophils (%) (Auto) 44.8, Lymphocytes (%) (Auto) 42.6, Monocytes (%) (Auto) 8.3H, Eosinophils (%) (Auto) 2.3, Basophils (%) (Auto) 0.4, Neutrophils # (Auto) 2.0, Lymphocytes # (Auto) 1.9, Monocytes # (Auto) 0.4, Eosinophils # (Auto) 0.1, Basophils # (Auto) 0.0, C -Reactive Protein, Quantitative < 0.30, Erythrocyte Sedimentation Rate 16, Glomerular Filtration Rate > 60.0, Large Unclassified Cells # 0.1, Large Unclassified Cells % 1.7 CBC/BMP Laboratory Tests 09/27/16 06:01 Calcium Level 8.6, Aspartate Amino Transf (AST/SGOT) 33, Alanine Aminotransferase (ALT/SGPT) 45, Alkaline Phosphatase 47, Total Bilirubin 0.7, Total Protein 5.4 L, Albumin 2.8 L, Red Blood Count 3.37 L, Mean Corpuscular Volume 95.6, Mean Corpuscular Hemoglobin 30.6, Mean Corpuscular Hemoglobin Concent 32.0, Red Cell Distribution Width 15.9 H, Neutrophils (%) (Auto) 44.8, Lymphocytes (%) (Auto) 42.6, Monocytes (%) (Auto) 8.3 H, Eosinophils (%) (Auto) 2.3, Basophils (%) (Auto) 0.4, Neutrophils # (Auto) 2.0, Lymphocytes # (Auto) 1.9, Monocytes # (Auto) 0.4, Eosinophils # (Auto) 0.1, Basophils # (Auto) 0.0 Microbiology Microbiology 09/26/16 Gram Stain - Final, Resulted 09/26/16 CSF Culture, Resulted Pending 09/26/16 Anaerobic Culture, Received Pending WIL GRAYSON PA-C Sep 27, 2016 13:19
[2016-09-28] MEDS: NAFCILLIN SOD 2 GM in D5W MINI-BAG PLUS 100 ML IV SCH ×4 (01:12→13:18)
[2016-09-28] MEDS: ONDANSETRON 4MG/2ML VIAL (J2405) IV PRN ×3 (01:12→17:08)
[2016-09-28] MEDS ORDERED: MIRALAX *UNIT DOSE* 17GM PACKET PO PRN (02:45)
[2016-09-28] MEDS: SODIUM CHLORIDE 0.9% INJ 10 ML SYR IV PRN ×2 (02:54→06:45)
[2016-09-28] MEDS: HYDROmorphone HCL 1 MG/ML SYRINGE (J1170) IV PRN ×3 (02:55→17:04)
[2016-09-28 04:45] VITALS: BP 134/89
[2016-09-28] MEDS: PERCOCET 5MG/325MG TAB PO PRN ×3 (05:52→20:07)
[2016-09-28] MEDS: SODIUM CHLORIDE 0.9% INJ 10 ML SYR IV SCH ×2 (05:53→17:05)
[2016-09-28 06:30] LABS: MEAN CORPUSCULAR HEMOGLOBIN 31.1 pg (27.0-33.0); MEAN CORPUSCULAR HGB CONC 32.3 g/dl (32.0-36.5); MEAN CORPUSCULAR VOLUME 96.4 fl (80.0-96.0); RED CELL DISTRIBUTION WIDTH 15.9 % (11.5-14.5); WHITE BLOOD COUNT 4.5 K/mm3 (4.0-10.0)
[2016-09-28] MEDS: KETOROLAC 30 MG/ML VIAL (J1885) IV PRN ×4 (06:45→22:12)
[2016-09-28 06:56] LABS: ALBUMIN 2.6 GM/DL (3.2-5.2); ALBUMIN/GLOBULIN RATIO 0.93 (1.00-1.93); ALKALINE PHOSPHATASE 55 U/L (45-117); ALT/SGPT 41 U/L (12-78); ANION GAP 9 MEQ/L (8-16); AST/SGOT 28 U/L (15-37); BILIRUBIN,TOTAL 0.6 MG/DL (0.2-1.0); BLOOD UREA NITROGEN 7 MG/DL (7-18); CALCIUM LEVEL 8.4 MG/DL (8.5-10.1); CARBON DIOXIDE LEVEL 27 MEQ/L (21-32); CHLORIDE LEVEL 105 MEQ/L (98-107); CREATININE FOR GFR 0.67 MG/DL (0.55-1.02); GLOMERULAR FILTRATION RATE > 60.0 (>51); GLUCOSE, FASTING 83 MG/DL (70-105); POTASSIUM SERUM 4.1 MEQ/L (3.5-5.1); SODIUM LEVEL 141 MEQ/L (136-145); TOTAL PROTEIN 5.4 GM/DL (6.4-8.2)
[2016-09-28 08:00] VITALS: BP 151/99
[2016-09-28] MEDS: BACLOFEN 10 MG TAB PO SCH ×3 (09:02→21:28)
[2016-09-28] MEDS: GABAPENTIN 300 MG CAP PO SCH ×3 (09:02→21:28)
[2016-09-28] MEDS: oxyCODONE 10 MG CR TAB PO SCH ×2 (09:03→21:29)
--- NOTE | 2016-09-28 11:36 | REP ---
CT LUMBAR SPINE WITHOUT CONTRAST: HISTORY: Follow-up. The patient is 2 days status post lumbar spine surgical exploration and suture line reinforcement for postoperative infection and CSF fistula. Comparison CT lumbar spine study is from September 11, 2016. TECHNIQUE: Helical scanning is acquired. 4 mm axial images are reformatted. Coronal and sagittal multiplanar re-formation images are generated and reviewed. CT FINDINGS: There are extensive postoperative changes involving the posterior elements of the lumbar spine and the adjacent extra-vertebral posterior paraspinal soft tissues. The bony changes include resection of the spinous process and laminectomy at L3, left L4 laminectomy, and left L5 laminectomy. There are extensive postoperative air collections in the extraspinal paravertebral soft tissues dorsally in and amongst these bony changes. The amount of postoperative air is increased today compared to the amount of air seen on September 11, 2016. Most recent surgery was dated September 26, 2 days ago. At L4-5, axial images demonstrate what appears to be diffuse disc bulging and mild central canal stenosis at L4-5. There is no evidence of epidural fluid collection on today's study. IMPRESSION: Multilevel laminectomy changes L3, L4 and L5. Extensive postoperative air is seen. Disc bulging and L4-5 noted. No epidural fluid collection is appreciated. Signed by Candido Bains MD 09/28/2016 11:51 A
[2016-09-28 12:00] VITALS: BP 142/85
[2016-09-28 16:00] VITALS: BP 125/87
[2016-09-28] MEDS: ACETAMINOPHEN TAB 650MG DOSE (2X325MG) PO PRN (16:06)
--- NOTE | 2016-09-28 17:27 | IPN ---
DATE: 09/28/2016 TIME PATIENT SEEN: 2:40 p.m. Patient has been seen and examined at bedside. No acute events overnight. Patient stated that she is feeling better. Denies any fever or chills, any chest pain, trouble breathing, abdominal pain, nausea, vomiting, diarrhea, constipation. Patient still admits to mild headache; however, it has improved since admission. Denies any other current new complaints. PHYSICAL EXAMINATION: VITAL SIGNS: Temperature 98.6, pulse 76, respirations 18, blood pressure 142/85 , oxygen saturation 97% on room air. GENERAL: Patient is a pleasant elderly female who was alert, awake, oriented times three. Does not appear to be in distress, laying comfortably in bed with head elevated at roughly 10 degrees. HEENT: Normocephalic, atraumatic. Extraocular motor intact. Mucous moist. NECK: Supple. No neck lymphadenopathy. CARDIOVASCULAR: Regular rate and rhythm. S1, S2. No murmurs, rubs or gallops. LUNGS: Clear to auscultation bilaterally. No wheezing, rales or rhonchi. ABDOMEN: Positive bowel sounds. Soft, nontender, nondistended. There are no peritoneal signs. No ecchymosis. EXTREMITIES: No edema, clubbing or cyanosis. SKIN: Warm and dry. NEUROLOGIC: Cranial nerves II-XII intact. No focal neurological deficits. Patient's incision at the lower back was dry, clean and intact. LABORATORIES: WBC 4.5, hemoglobin 9.9, hematocrit 30.6, platelet count 266, MCV 96.4. Sodium 141, potassium 4.0, chloride 105, bicarbonate 27, BUN 7, creatinine, 0.67 , GFR greater than 60, fasting glucose 83, albumin 2.6. Patient's platelet function came back to be elevated at 221 and ADP was 140. Patient's aerobic culture shows no growth. Patient's cerebral spinal fluid (CSF ) culture shows no organism seen after two days. Patient had a new CT of the lumbar spine. It shows a multi-level laminectomy changes at L3, L4 and L5, extensive postoperative air is seen, disc bulging at L4-5 noted. No epidural fluid collection is appreciated. ASSESSMENT AND PLAN: A 55-year-old female presented due to fluid collection in the posterior soft tissue, status post laminectomy. At this point, it does not appear to be infected; however, we will continue patient's antibiotic for 10 more days to continue [place] of MSSA sudural abscess on previous admission . Due to patient's white cell count has been decreasing possibly caused by nafcillin She will be switched from nafcillin to cefazolin 2 grams intravenous (IV) every 8 hours for 10 days. Patient has been discussed with attending doctor, Dr. Forbes. My preceptor for this patient encounter was Dr. Magaly Forbes. The preceptor was physically present in the building during the encounter and was fully available as needed. All aspects of the patient interview, examination, medical decision-making process, and medical care plan development were reviewed and approved by the preceptor. The preceptor is aware and concurs with the plan as stated in the body of this note and will attest to such by his/her co-signature. CAMRON
--- NOTE | 2016-09-28 18:02 | IPNPDOC ---
Date Seen The patient was seen on 09/28/16. Progress Note NEUROSURGERY SUBJECTIVE: Patient is a 55 year old female s/p surgical wound exploration on 09/26/16. States she is doing well today. Her headache today has improved from yesterday. She has been ambulating well to the bathroom. No other changes since yesterday noted. She will try a protein shake today for dinner. States she has been taking Dilaudid q 6 hrs. She is requesting to continue this at home. OBJECTIVE PHYSICAL EXAMINATION: VITAL SIGNS: Please see below. Patient has been afebrile. GENERAL: Alert and oriented 3. She is sitting comfortably on the bed. She appears to be in no acute distress. SKIN: Bandage is dry. There is no surrounding erythema or swelling noted around the bandage. Mild surrounding tenderness. No other rashes, ecchymosis, erythema , or lesions noted. HEENT: Normocephalic/atraumatic, symmetrical. Scalp is intact without lesions, deformities, or tenderness. She is wearing glasses. Corneas are clear. Conjunctivae pink and moist. RESPIRATORY: She is breathing comfortably. NEUROLOGICAL: No focal deficits noted. No changes since prior examination. PSYCHOLOGICAL: Mood is stable. She is able to stand and ambulate well. LABORATORY DATA: Please see below. Cultures taken 09/26/16: No aerobic growth. CSF culture was negative. IMAGING: CT without contrast of the lumbar spine on 09/28/16 shows: Multilevel laminectomy changes L3, L4 and L5. Extensive postoperative air is seen. Disc bulging and L4-5 noted. No epidural fluid collection is appreciated. MRI of the lumbosacral spine performed on 09/23/2016 shows: 1. Fluid collection in the posterior soft tissues of the back corresponding to the finding noted on the recent CT study of September 11, 2016. It is uncertain on the basis of this study whether this reflects an uninfected or infected postoperative fluid collection. 2. No evidence of epidural abscess collection identified in the lumbar spinal canal. 3. No evidence of osteomyelitis in the lumbar vertebral bodies. There is no evidence of lumbar discitis. ASSESSMENT AND PLAN: S/p surgical wound exploration 09/26/16. Bandage has been dry today per nursing staff. Discussed discharge with pt. She prefers to be discharged tomorrow since her is not home. Will plan and arrange from discharge tomorrow. Argelia Grayson RPA-C VS, I&O, 24H, Reddy Vital Signs/I&O Vital Signs Date Time Temp Pulse Resp B/P Pulse Ox O2 Delivery O2 Flow Rate FiO2 09/28/16 17:15 18 Room Air 09/28/16 16:00 98.4 83 125/87 96 09/27/16 16:00 2.0 I&O- Last 24 Hours up to 6 AM 09/28/16 06:00 Intake Total 2560 ml Output Total 2900 ml Balance -340 ml Laboratory Data 24H LABS Laboratory Tests 2 09/28/16 05:57: Blood Urea Nitrogen 7#, Creatinine 0.67, Sodium Level 141, Potassium Level 4.1, Chloride Level 105, Carbon Dioxide Level 27, Calcium Level 8.4L, Aspartate Amino Transf (AST/SGOT) 28, Alanine Aminotransferase (ALT/SGPT) 41, Alkaline Phosphatase 55, Total Bilirubin 0.6, Total Protein 5.4L, Albumin 2.6L, Albumin/ Globulin Ratio 0.93L, Anion Gap 9, Glomerular Filtration Rate > 60.0 CBC/BMP Laboratory Tests 09/28/16 05:57 Calcium Level 8.4 L, Aspartate Amino Transf (AST/SGOT) 28, Alanine Aminotransferase (ALT/SGPT) 41, Alkaline Phosphatase 55, Total Bilirubin 0.6, Total Protein 5.4 L, Albumin 2.6 L, Red Blood Count 3.18 L, Mean Corpuscular Volume 96.4 H, Mean Corpuscular Hemoglobin 31.1, Mean Corpuscular Hemoglobin Concent 32.3, Red Cell Distribution Width 15.9 H Microbiology Microbiology 09/26/16 Gram Stain - Final, Complete 09/26/16 CSF Culture - Final, Complete 09/26/16 Anaerobic Culture - Final, Complete WIL GRAYSON PA-C Sep 28, 2016 17:57
[2016-09-28 19:37] VITALS: BP 147/89
[2016-09-28] MEDS ORDERED: LISINOPRIL 20 MG TAB PO SCH (21:00)
[2016-09-28 22:00] VITALS: BP 151/95
--- NOTE | 2016-09-29 00:55 | CR ---
DATE OF CONSULTATION: 09/26/2016 I was asked to consult by Dr. Biggs for followup on antibiotic for postoperative wound infection with methicillin-susceptible Staphylococcus aureus (MSSA) and leukopenia. HISTORY OF PRESENT ILLNESS: Mrs. Salas is a pleasant 55-year-old female with a history of lumbar laminectomy done on 08/26/2016. The patient was admitted 2 weeks later with a Staphylococcus aureus subdural abscess which needed debridement and back to the operating room on two occasions during that previous admission. She had a fever of 101.6, white count of 19.1. Culture was positive for MSSA and the patient was started on intravenous (IV) nafcillin. She had a peripherally inserted central catheter (PICC) line placed. After the patient's pain was better controlled and she defervesced, she was sent home on IV nafcillin 12 grams continuous infusion. The patient's wound culture from the intraoperative site was positive for MSSA. She had persistent headache. She had an occipital block. There was concern about a cerebrospinal fluid (CSF) leak. The patient went home feeling much better, but was readmitted on 09/25 with a severe headache, neck stiffness and CSF leak. The patient was seen on Wednesday morning where she stated that her headache was getting worse and she was having increasing drainage from the back and therefore Dr. Biggs was called and the patient was taken to the operating room that night. Her antibiotics were initially started on 09/06 with cefazolin for 3 days and nafcillin on discharge. ALLERGIES: LATEX, MORPHINE. PAST MEDICAL HISTORY: 1. Hypertension. 2. History of lung mass for which she follows up with pulmonary. 3. History of pancreatitis many years ago from alcohol abuse. PAST SURGICAL HISTORY: 1. Laminectomy 2016 complicated by postoperative wound infection with MSSA and CSF leak. 2. Right shoulder repair 1995. 3. Hysterectomy in 2007. 4. Tonsillectomy. FAMILY HISTORY: Mother had a pulmonary embolism. Father had a myocardial infarction (ND). SOCIAL HISTORY: She denies alcohol or drug abuse. She lives with her . REVIEW OF SYSTEMS: She has had some nausea, but no vomiting, no abdominal pain. She has a headache and neck stiffness. The headache is mostly when standing up. She has low back pain and pain radiating into her right butt cheek. PHYSICAL EXAMINATION: Temperature 98.1, pulse 81, respirations 20, blood pressure 156/97, oxygen saturation 96% on room air. Heart: Normal S1, S2. No murmurs, rubs or gallops. Lungs are clear. No wheezes, rales or rhonchi. Abdomen: Soft, nontender. No visceromegaly. Back: Mild lumbosacral tenderness from L1-L5 where the incision is with a CSF leak with leakage from the upper part of the incision. There is significant fluid underneath the skin. Extremities: No edema. Motor strength is fair bilaterally symmetrical. LABORATORY DATA: White count on 09/26 was 2.9, hemoglobin 10.1, hematocrit 32, platelets 339. ESR 15. Sodium 143, potassium 3.8, chloride 109, bicarbonate 26, BUN 6, creatinine 0.54, glucose 87, calcium 8.6, CRP is less than 0.3, albumin 2.9. Microbiology from 09/06 wound culture was positive for MSSA. 09/10 positive culture for MSSA. MRSA screen on 09/11 was negative. CSF from intraoperatively 09/26 was negative. MEDICATIONS: - nafcillin 2 grams IV every 4 hours since 09/24 - heparin flushes - Zofran 4 mg IV every 6 hours as needed for nausea - Percocet one tablet every 6 as needed - OxyContin 10 mg daily by mouth twice a day - Baclofen 20 mg three times a day - gabapentin 300 mg by mouth three times a day - ketorolac 15 mg IV every [address] was done on 09/28, which showed multilevel laminectomy, extensive postoperative area seen, disc bulging but no epidural fluid is appreciated. IMPRESSION: This is a 55-year-old female with a history of degenerative disc disease status post laminectomy who developed Staphylococcus aureus complications with postoperative wound infection with methicillin-susceptible Staphylococcus aureus (MSSA) status post debridement, developed a cerebrospinal fluid (CSF) leak and now is readmitted with a CSF leak. Currently, this infection seems well controlled. Her white count, sedimentation rate, C-reactive protein (CRP), all levels are normal. Her fever had resolved. The patient has mild leukopenia from nafcillin. PLAN: Discontinue intravenous (IV) nafcillin. Will switch her to cefazolin 2 grams IV every 8 hours. Will probably continue treatment for another 7-10 days for treatment of subdural hematoma to allow this wound healing as there has been significant leakage and friability of the dura.
[2016-09-29] MEDS: ONDANSETRON 4MG/2ML VIAL (J2405) IV PRN ×2 (02:00→08:57)
[2016-09-29] MEDS: HYDROmorphone HCL 1 MG/ML SYRINGE (J1170) IV PRN ×2 (02:01→08:54)
[2016-09-29] MEDS: PERCOCET 5MG/325MG TAB PO PRN ×2 (02:55→16:18)
[2016-09-29 06:00] VITALS: BP 139/94
--- NOTE | 2016-09-29 06:13 | CR ---
DATE OF CONSULTATION: 09/29/2016 REQUESTING PHYSICIAN: Dr. Biggs. REASON FOR CONSULTATION: Assistance in management of medical condition, leukopenia. HISTORY OF PRESENT ILLNESS: Ms. Salas is a 55-year-old female with a history of lumbar laminectomy on 08/26/2016 who was admitted by Dr. Biggs due to episode of leaking cerebrospinal fluid (CSF) from her surgical site. States that her problem with her back infection started after lumbar laminectomy where she developed infection beginning 09/05/2016. She underwent wound exploration and debridement on 09/06/2016, and was started on cephazolin on 09/06/2016. Her wound culture came back positive for MSSA, and has been on nafcillin since 09/07/2016, with plans for a total four-week course antibiotic. She was then discharged on 09/15/2016 with a peripherally inserted central catheter (PICC) line for antibiotic infusion. The patient states that since her discharge, she was doing relatively well, had some intermittent pain that was well controlled with medication. However, on 09/23/2016, as she was getting washed up to go to have an appointment with her primary care provider (PCP), she noticed that there was clear leakage from her back. Her PCP noticed that it was dripping from her back when the tape was removed. The case was immediately discussed with Dr. Biggs, who evaluated the patient in the office and admitted her back to [facility] She underwent wound exploration and reinforcement of the suture line on 09/26/2016. Since surgery, she denies further leakage of her incision site. Her back pain persists, but it is tolerable with pain medication. Still reports intermittent headaches, though it is improved. No fever, chills, night sweats. Nausea when she has her headache. Medicine service is requested to assist with medical management, and also leukopenia. The patient is currently also being followed by Dr. Forbes. Her antibiotic was changed from nafcillin to cephazolin. The patient denied any history of recurrent pulmonary or sinus infections as a child or in adulthood. PAST MEDICAL HISTORY: 1. Post-surgical infection with subdural abscess August 2016, MSSA. 2. Hypertension. 3. Lung mass, follows with pulmonology. 4. Prior history of pancreatitis from prior alcohol use. 5. Depression. 6. Seizure disorder. 7. Gastroesophageal reflux disease (GERD). 8. Degenerative disc disease status post laminectomy. PAST SURGICAL HISTORY: 1. Lumbar laminectomy on 08/26/2016. 2. Wound exploration and debridement, drainage of serosanguineous collection subcutaneously 09/06/2016. 3. L2 through L4 bilateral decompression with lysis of perineural fibrosis and drainage of loculated subarachnoid cyst 09/10/2016. 4. Wound exploration and reinforcement of suture line 09/26/2016. 5. Right shoulder repair 1995. 6. Hysterectomy 2007. 7. Tonsillectomy. ALLERGIES: 1. MORPHINE - vomiting. 2. LATEX - rash. HOME MEDICATIONS: - Tylenol 650 mg every four hours as needed - Baclofen 20 mg three times a day - cetirizine 10 mg at bedtime - gabapentin 300 mg three times a day - lisinopril 10 mg at bedtime - mineral oil 30 mL daily as needed for constipation - nafcillin 2 grams continuous infusion - OxyContin 10 mg one tablet by mouth twice a day - Percocet every six hour as needed - MiraLax 17 grams at bedtime - senna two capsules at bedtime INPATIENT MEDICATIONS: - cephazolin 2 grams every eight hours started on 09/28/2016 - MiraLax as needed - Dilaudid 1 mg every six hours as needed - Toradol 50 mg as needed - Baclofen 20 three times a day - gabapentin 300 three times a day - OxyContin 10 mg twice a day - Percocet one tablet every six hours as needed - Tylenol 650 every four hours as needed - Zofran 4 mg every six hours as needed FAMILY HISTORY: There is a history of father at 48 of massive heart attack. Mother from complications from pulmonary embolism (PE). Two sisters with Factor V deficiency and blood clots. SOCIAL HISTORY: The patient is a nonsmoker. She used to drink alcohol heavily for many years. Quit 17 years ago. No drug use. 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 No exposure to tuberculosis or asbestos that the patient is aware of. Travelled to [place] in the past. Currently lives at home with and daughter, grandchild, has one dog at home. REVIEW OF SYSTEMS: CONSTITUTIONAL: Denies fevers, chills, night sweats, but positive for approximately 20 pound weight loss in the last two years. Stated that she lost weight since being in and out of the hospital for her infection. HENT: Positive for headaches after 150 mL of CSF was removed after her surgery. Positive for blurry vision but no transient vision loss. No difficulty with speech and swallow. EYES: No diplopia or transient vision loss CARDIOVASCULAR: Denies chest pain, paroxysmal nocturnal dyspnea, pillow orthopnea, lower extremity edema. PULMONARY: Denies shortness of breath, productive cough, hemoptysis. GASTROINTESTINAL: Denies hematochezia, melena, or hematemesis, nausea, vomiting, diarrhea. Positive for constipation due to her medications. GENITOURINARY: No dysuria, frequency or hematuria. MUSCULOSKELETAL: No bone, muscle, joint pain. NEUROLOGICAL: As above. No paralysis but positive for headache as above. ENDOCRINE: Negative for diabetes, or thyroid disease. LYMPHATICS: No lumps, bumps, or swelling anywhere in neck, axilla, or groin. HEMATOLOGY: No abnormal bleeding or bruising. SKIN: No new rashes PSYCHIATRIC: Positive for depression PHYSICAL EXAMINATION: VITAL SIGNS: Blood pressure 151/95, heart rate 77, temperature 97.7, respiratory rate 14, pulse oximetry 98% on room air. Intake and output last 24 hours 778 and 1475. GENERAL: The patient is lying in bed comfortable. No acute distress. She is alert, awake, oriented times three. Pleasant, cooperative, thin appearing. HENT: Normocephalic, atraumatic. Moist oral mucosa. Fair dentition. No thrush or lesions appreciated. EYES: Extraocular movement intact. Pupils equal and reactive to light. NECK: Supple. Trachea midline. No jugular venous distention (JVD). No nuchal rigidity. CHEST: Symmetric chest rise. No accessory muscle use. Breath sounds were clear to auscultation bilaterally. HEART: Regular rate and rhythm. S1, S2 present. ABDOMEN: Soft, nontender, nondistended. Bowel sounds present. No guarding, no rebound. EXTREMITIES: No pedal edema. Pedal pulses present bilaterally. NEUROLOGIC: Sensory intact. No focal deficits appreciated. BACK: She has dressing by her surgical site. Area was not undressed for examination. PSYCHIATRIC: Pleasant, cooperative. SKIN: No obvious rashes or lesions aside from her surgical site has been dressed. LABORATORY DATA: WBC 4.5. She had two episodes where her WBC was 2.9, but since the last two days had been normal. Hemoglobin 9.9, hematocrit 30.6, platelets 266. Sodium 141, potassium 4.1, chloride 105, carbon dioxide 27, BUN 70, creatinine 0.67, glucose 83. Lipid profile normal. Albumin 2.6. PT 12.8, INR 0.95. Platelet function collagen 221. ADP 140. MICROBIOLOGY: Urinalysis on admission clear. Anaerobic culture obtained was negative. CSF showed a few RBC, WBC, but no organism seen. IMAGING: Chest x-ray on admission showed no acute cardiopulmonary disease. Lumbar MRI on admission showed fluid collection in the posterior soft tissue of back, corresponding to finding noted on previous CT. No evidence of epidural abscess collection in the lumbar spine or canal. No evidence of osteo in the lumbar vertebral bodies. No evidence of lumbar discitis. Lumbar CT showed multilevel laminectomy changes L3, L4, L5. Extensive postoperative area seen. Disc bulge in the L4-L5 noted. No epidural fluid collection appreciated. IMPRESSION AND PLAN: Ms. Salas is a 55-year-old female with history of degenerative disc disease status post laminectomy in August. Unfortunately developed complications post surgery including cerebrospinal fluid (CSF) leak and methicillin-sensitive Staphylococcus aureus (MSSA) from her wound. 1. Cerebrospinal fluid (CSF) leak. This is currently being managed by primary team. She is status post surgical intervention two days ago. 2. Methicillin-sensitive Staphylococcus aureus (MSSA) postoperative wound infection. Since 09/07, she has been on antibiotics, previously on cephazolin and later changed to nafcillin. She is now on cephazolin due to concern for leukopenia. 3. Leukopenia. Suspect that this was likely secondary to nafcillin which has already been discontinued by infectious disease. Leukopenia is now resolved. There was concern from the primary team whether she might have some immune deficiency disorder that might contribute to her postoperative recurrent infections, and in reviewing her medical records and per patient, she does not have a history of recurrent sinus or pulmonary infections prior to her laminectomy, so suspect that immunodeficiency is unlikely. Recommend continue to monitor for now, as her nafcillin is discontinued. 4. Anemia. Likely secondary to antibiotics. Her hemoglobin prior to starting on antibiotics was within normal range. Suspect that this is likely secondary to new medications. Ketorolac can also worsen her anemia. Recommend checking her complete blood count (CBC) after completion of antibiotics and monitor level. Does not appear that she is up to date on her colonoscopy and might warrant referral by primary care provider (PCP) for screening colonoscopy due to her age. 5. Hypertension. Recommend resuming her home dose lisinopril as her blood pressure has been ranging high secondary to her pain. 6. Family history of factor V Leiden deficiency. The patient has an extensive family history of factor V Leiden deficiency including her sisters with blood clots and her mom of complications from pulmonary embolism (PE). Recommend that she have this further worked up outpatient by her PCP. Thank you for allowing us to participate in Ms. Salas's care. We will continue to follow her with you. CAMRON
[2016-09-29] MEDS: KETOROLAC 30 MG/ML VIAL (J1885) IV PRN ×2 (06:14→13:49)
[2016-09-29] MEDS: SODIUM CHLORIDE 0.9% INJ 10 ML SYR IV SCH ×2 (06:15→18:29)
[2016-09-29 06:30] VITALS: BP 139/94
[2016-09-29 06:44] LABS: MEAN CORPUSCULAR HEMOGLOBIN 30.9 pg (27.0-33.0); MEAN CORPUSCULAR VOLUME 93.7 fl (80.0-96.0); RED CELL DISTRIBUTION WIDTH 15.8 % (11.5-14.5); WHITE BLOOD COUNT 4.4 K/mm3 (4.0-10.0)
[2016-09-29 07:30] LABS: ALBUMIN 2.8 GM/DL (3.2-5.2); ALBUMIN/GLOBULIN RATIO 1.04 (1.00-1.93); ALKALINE PHOSPHATASE 57 U/L (45-117); ALT/SGPT 44 U/L (12-78); ANION GAP 9 MEQ/L (8-16); AST/SGOT 36 U/L (15-37); BILIRUBIN,TOTAL 0.6 MG/DL (0.2-1.0); BLOOD UREA NITROGEN 7 MG/DL (7-18); CALCIUM LEVEL 8.4 MG/DL (8.5-10.1); CARBON DIOXIDE LEVEL 27 MEQ/L (21-32); CHLORIDE LEVEL 107 MEQ/L (98-107); CREATININE FOR GFR 0.63 MG/DL (0.55-1.02); GLOMERULAR FILTRATION RATE > 60.0 (>51); GLUCOSE, FASTING 87 MG/DL (70-105); POTASSIUM SERUM 3.8 MEQ/L (3.5-5.1); SODIUM LEVEL 143 MEQ/L (136-145); TOTAL PROTEIN 5.5 GM/DL (6.4-8.2)
[2016-09-29 08:41] VITALS: BP 142/96
[2016-09-29] MEDS: BACLOFEN 10 MG TAB PO SCH ×2 (10:27→16:18)
[2016-09-29] MEDS: GABAPENTIN 300 MG CAP PO SCH ×2 (10:28→16:18)
[2016-09-29] MEDS: oxyCODONE 10 MG CR TAB PO SCH ×2 (10:41→11:10)
[2016-09-29] MEDS ORDERED: HYDR2TAB2 PO (10:49)
[2016-09-29] MEDS: HYDROmorphone 2 MG TAB PO PRN ×2 (12:03→18:29)
[2016-09-29 12:16] VITALS: BP 143/97
[2016-09-29 14:00] VITALS: BP 119/75
--- NOTE | 2016-10-01 14:19 | DS.PDOC ---
Discharge Summary General Date of Admission Sep 23, 2016 Date of Discharge September 29, 2016 Attending Physician: HOWIE DA SILVA MD Specialist/Consultants Involve: Magaly Forbes MD Discharge Summary PROCEDURES PERFORMED DURING STAY: On 09/26/16, a wound exploration and reinforcement of suture line was performed by Dr. Da Silva. ADMITTING DIAGNOSES: 1. CSF fistula 2. Chronic low back pain with opioid dependence 3. Opioid-induced hyperalgesia DISCHARGE DIAGNOSES: 1. CSF fistula 2. Chronic low back pain with opioid dependence 3. Opioid-induced hyperalgesia 4. Recent history of MSSA postop wound infection 5. Leukopenia, resolved after switching antibiotic from nafcillin to cephazolin. COMPLICATIONS/CHIEF COMPLAINT: Csf Fistula Surgical Wound Exploration. HISTORY OF PRESENT ILLNESS: Mrs. Salas is a 55-year-old female with a history of chronic low back pain , hypertension, history of a lung mass followed by pulmonary, and history of pancreatitis secondary to alcohol abuse who was admitted on 09/23/16 for further evaluation of drainage over her bandage as noted by her primary care physician in a follow-up visit. Within the past month, prior to this admission she had undergone 3 lumbar surgeries. The third lumbar surgery, performed on 09/10/16, was a wound exploration for further evaluation of a fluid collection above the surgical site as noted on a lumbar CT image. The fluid collection was identified as a subarachnoid cyst during the surgery and drained successfully. Her disposition began to improve and she was discharged home. She had been doing well at home and ambulating without difficulty. During her follow-up visit with her primary care some drainage over the bandage was noted and a picture was sent to Dr. Da Silva. Dr. Da Silva had recommended further evaluation regarding this drainage and the patient was admitted on 09/23/16. She began to develop headache with nausea and vomiting. These symptoms in the presence of drainage noted on her bandage gave rise to a CSF leak/fistula. Possible wound exploration surgery was discussed with patient and her , as well as the risks of surgery. Patient and her understood the potential risks and benefits and wished to proceed with the proposed surgery. Surgery was performed on 09/26/16 without any complication by Dr. Da Silva. CSF leak was identified and repaired. Given patients recent history of a positive wound culture for MSSA and leukopenia thought to be related to nafcillin, a consult was placed to Dr. Forbes for antibiotic coverage. Her antibiotic was switched from nafcillin to cephazolin. Hospital service was also requested to assist with her medical management. Following her surgery, her headache began to improve as well as her nausea and vomiting. Her disposition began to improve and was stable. She has been cleared for discharge to home. HOSPITAL COURSE: She had been admitted to PCU following surgery and then moved to the fifth floor. Her hospital course had been relatively uneventful, with the exception of difficulty with her pain management in the presence of her opiate dependency. She did not have any focal motor deficits noted on her physical exams. She had remained afebrile. She denied any postop symptoms. In addition, her headache symptoms began to improve postop. DISCHARGE MEDICATIONS: Please see below. ALLERGIES: Please see below. LABORATORY DATA: Please see below. IMAGING: Lumbar spine CT without contrast performed on 09/28/2016, 2 days status post lumbar spine surgery exploration with repair of CSF fistula, and suture line reinforcement for postop infection shows "Multilevel laminectomy changes L3, L4 and L5. Extensive postoperative air is seen. Disc bulging and L4-5 noted. No epidural fluid collection is appreciated." ACTIVITY: As tolerated. DIET: As tolerated. DISCHARGE INSTRUCTIONS/ PLAN: 1. Keep the area of incision and bandage completely dry until at least 2 weeks for follow-up in the office. 2. Monitor for signs and symptoms of infection is discussed. 3. Take temperature twice daily and call if temperature is greater than or equal to 100F. 4. She is to call the office to schedule a follow-up appointment, if any new symptoms appear, or any new questions arise. 5. She is to continue preadmission medications. 6. Fall precautions. 7. No driving for at least 2 weeks. She understands she needs to be asymptomatic for at least 1 week before operating a vehicle or machinery. All questions have been answered to patient and her 's satisfaction. She understands and is aware of possible catastrophic sequela if she does not follow his recommendations. She agrees to follow-up in the office within 2 weeks or sooner if needed. DISCHARGE CONDITION: Stable. TIME SPENT ON DISCHARGE: Greater than 45 minutes. Vital Signs/I&Os Vital Signs Date Time Temp Pulse Resp B/P Pulse Ox O2 Delivery O2 Flow Rate FiO2 09/29/16 12:16 98.1 91 16 143/97 97 Room Air 09/27/16 16:00 2.0 I&O- Last 24 Hours up to 6 AM 09/29/16 06:00 Intake Total 1038 ml Output Total 1475 ml Balance -437 ml Laboratory Data Labs 24H Laboratory Tests 2 09/29/16 06:20: Blood Urea Nitrogen 7, Creatinine 0.63, Sodium Level 143, Potassium Level 3.8, Chloride Level 107, Carbon Dioxide Level 27, Calcium Level 8.4L, Aspartate Amino Transf (AST/SGOT) 36, Alanine Aminotransferase (ALT/SGPT) 44, Alkaline Phosphatase 57, Total Bilirubin 0.6, Total Protein 5.5L, Albumin 2.8L, Albumin/ Globulin Ratio 1.04, Anion Gap 9, Glomerular Filtration Rate > 60.0 CBC/BMP Laboratory Tests 09/29/16 06:20 Calcium Level 8.4 L, Aspartate Amino Transf (AST/SGOT) 36, Alanine Aminotransferase (ALT/SGPT) 44, Alkaline Phosphatase 57, Total Bilirubin 0.6, Total Protein 5.5 L, Albumin 2.8 L, Red Blood Count 3.40 L, Mean Corpuscular Volume 93.7, Mean Corpuscular Hemoglobin 30.9, Mean Corpuscular Hemoglobin Concent 33.0, Red Cell Distribution Width 15.8 H Microbiology Microbiology 09/26/16 Gram Stain - Final, Complete 09/26/16 CSF Culture - Final, Complete 09/26/16 Anaerobic Culture - Final, Complete Discharge Medications Scheduled Baclofen (Baclofen) 20 Mg Tab 20 MG PO TID (Reported) Cetirizine HCl (Cetirizine HCl) 10 Mg Tab 10 MG PO QHS (Reported) Gabapentin (Neurontin) 300 Mg Cap 300 MG PO TID (Reported) Hydromorphone HCl (Hydromorphone HCl) 2 Mg Tab 2 MG PO Q8H break through pain only Lisinopril (Lisinopril) 20 Mg Tab 20 MG PO QHS (Reported) Oxycodone HCl (Oxycontin) 10 Mg Tab 1 TAB PO BID (Reported) Polyethylene Glycol (Miralax) 1 Pow Pow 17 GM PO QHS (Reported) Senna (Senna Lax) 8.6 Mg Tab 2 TAB PO QHS (Reported) Scheduled PRN Acetaminophen (Tylenol) 325 Mg Tab 650 MG PO Q4HP PRN PRN PAIN / FEVER (Reported ) Oxycodone/Acetaminophen (Percocet 5-325 mg) 1 Tab Tab 1 TAB PO Q6H PRN PRN PAIN (Reported) Allergies Coded Allergies: Latex (Verified Allergy, Intermediate, rash, 09/23/16) Morphine (Verified Adverse Reaction, Mild, vomiting, 08/21/16) WIL MCCLURE PA-C Sep 29, 2016 12:57
== END 2016-09-29 18:40 | disposition home or self-care (01) | DRG 23 ==
LOC: M MS5PR 16:50 → M PCU 22:50 → OBSVTOIN 09-28 17:26 → M MS5PR 09-28 21:00
PROVIDERS: ADMIT Neurological Surgery; ATTEND Neurological Surgery
PROC: 00Q Central Nervous System and Cranial Nerves, Repair (ICD-10-PCS; 2016-09-26)
PROC: 00JU0ZZ Inspection of Spinal Canal, Open Approach (ICD-10-PCS; principal; 2016-09-26 12:38)
DX: G96.0 Cerebrospinal fluid leak (principal); D70.2 Other drug-induced agranulocytosis; I10 Essential (primary) hypertension; F11.20 Opioid dependence, uncomplicated; M54.5 Low back pain; R20.8 Other disturbances of skin sensation; R91.8 Other nonspecific abnormal finding of lung field; T36.0X5A Adverse effect of penicillins, initial encounter; Z79.899 Other long term (current) drug therapy; Z88.5 Allergy status to narcotic agent; Z91.040 Latex allergy status; T81.4XXD Infection following a procedure, subsequent encounter; D64.9 Anemia, unspecified

== ENCOUNTER → 2016-10-10 | Outpatient (REF) | payer OTHER ==
[~2016-10-10] MED LIST changes: +MINEOIL3 PO
[2016-10-10 20:21] LABS: BASO % 0.3 % (0.0-1.0); EOS # 0.2 K/mm3 (0.0-0.50); EOS % 3.1 % (0.0-3.0); LYMPH # 2.8 K/mm3 (1.5-4.5); LYMPH % 53.9 % (24.0-44.0); MEAN CORPUSCULAR HEMOGLOBIN 30.3 pg (27.0-33.0); MEAN CORPUSCULAR HGB CONC 31.1 g/dl (32.0-36.5); MEAN CORPUSCULAR VOLUME 97.3 fl (80.0-96.0); MONO # 0.4 K/mm3 (0.0-0.8); MONO % 7.1 % (0.0-5.0); NEUTROPHILS # 1.7 K/mm3 (1.8-7.7); NEUTROPHILS % 33.6 % (36.0-66.0); RED CELL DISTRIBUTION WIDTH 15.1 % (11.5-14.5); WHITE BLOOD COUNT 5.1 K/mm3 (4.0-10.0)
[2016-10-10 20:27] LABS: ALBUMIN 3.2 GM/DL (3.2-5.2); ALBUMIN/GLOBULIN RATIO 1.07 (1.00-1.93); ALKALINE PHOSPHATASE 68 U/L (45-117); ALT/SGPT 18 U/L (12-78); ANION GAP 6 MEQ/L (8-16); AST/SGOT 34 U/L (15-37); BILIRUBIN,TOTAL 0.5 MG/DL (0.2-1.0); BLOOD UREA NITROGEN 11 MG/DL (7-18); CARBON DIOXIDE LEVEL 28 MEQ/L (21-32); CHLORIDE LEVEL 105 MEQ/L (98-107); COMPLEMENT C3 104 MG/DL (90-180); COMPLEMENT C4 23.8 MG/DL (10-40); CREATININE FOR GFR 0.88 MG/DL (0.55-1.02); GLOMERULAR FILTRATION RATE > 60.0 (>51); GLUCOSE, FASTING 81 MG/DL (70-105); POTASSIUM SERUM 4.3 MEQ/L (3.5-5.1); SODIUM LEVEL 139 MEQ/L (136-145); TOTAL PROTEIN 6.2 GM/DL (6.4-8.2)
== END ==
LOC: M LAB REF 19:28
PROVIDERS: ATTEND Neuromusculoskeletal Medicine & OMM
DX: D68.0 Von Willebrand disease (principal); D84.1 Defects in the complement system; E27.40 Unspecified adrenocortical insufficiency; D68.9 Coagulation defect, unspecified

== ENCOUNTER 2016-10-14 15:03 | Inpatient (IN) | payer OTHER ==
[~2016-10-14] VITALS: Ht 165.1 cm; Wt 48.9 kg
[2016-10-14] MEDS ORDERED: FENT50PA TD (15:23)
--- NOTE | 2016-10-14 15:47 | ED PDOC ---
Post-Departure Follow-Up AT THIS TIME, AWAITING CALL BACK FROM DR. MONTEZ. 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 MONTEZ. PT AND UNDER THE UNDERSTANDING THAT THEY WILL BE SEEN BY DR. MONTEZ IN THE ER TODAY. CALLED HER SERVICE AND THEY SENT OUT A PAGE. AWAITING CALL BACK BEFORE ANY ORDERS/INTERVENTIONS ARE PLACED. AT 1639, CALLED ANSWERING SERVICE AGAIN TO SPEAK WITH DR. MONTEZ, STILL NO CALL BACK AFTER 50 MINUTES. AWAITING CALL BACK AT THIS TIME. AT 1950, DR. DA SILVA IN TO SEE PT. STATES, "HER TEXT ME." DIRECTED DR. DA SILVA TO EXAM ROOM. AWAITING MRI REPORT FROM [facility] AT THIS TIME. JAME CASSIDY PA-C Oct 14, 2016 15:47
[2016-10-14] MEDS ORDERED: KETOROLAC 30 MG/ML VIAL (J1885) IV ONE (17:00)
[2016-10-14 17:50] LABS: BASO # 0.1 K/mm3 (0.0-0.2); BASO % 0.5 % (0.0-1.0); EOS # 0.1 K/mm3 (0.0-0.50); EOS % 0.7 % (0.0-3.0); LARGE UNSTAINED CELL # 0.1 K/mm3 (0.0-0.4); LARGE UNSTAINED CELL % 1.1 % (0.0-4.0); LYMPH # 2.6 K/mm3 (1.5-4.5); LYMPH % 19.6 % (24.0-44.0); MEAN CORPUSCULAR HEMOGLOBIN 31.7 pg (27.0-33.0); MEAN CORPUSCULAR HGB CONC 32.4 g/dl (32.0-36.5); MEAN CORPUSCULAR VOLUME 97.7 fl (80.0-96.0); MONO # 0.9 K/mm3 (0.0-0.8); MONO % 7.3 % (0.0-5.0); NEUTROPHILS % 70.9 % (36.0-66.0); PLATELET COUNT, AUTOMATED 327 k/mm3 (150-450); RED CELL DISTRIBUTION WIDTH 14.1 % (11.5-14.5); WHITE BLOOD COUNT 12.7 K/mm3 (4.0-10.0)
[2016-10-14] MEDS ORDERED: HYDROmorphone HCL 1 MG/ML SYRINGE (J1170) IV ONE (18:00)
[2016-10-14] MEDS ORDERED: GABAPENTIN 300 MG CAP PO ONE (18:00)
[2016-10-14] MEDS ORDERED: BACLOFEN 10 MG TAB PO ONE (18:00)
[2016-10-14 18:07] LABS: ANION GAP 9 MEQ/L (8-16); BLOOD UREA NITROGEN 9 MG/DL (7-18); CALCIUM LEVEL 9.4 MG/DL (8.5-10.1); CARBON DIOXIDE LEVEL 27 MEQ/L (21-32); CHLORIDE LEVEL 102 MEQ/L (98-107); CREATININE FOR GFR 0.76 MG/DL (0.55-1.02); GLOMERULAR FILTRATION RATE > 60.0 (>51); GLUCOSE, FASTING 89 MG/DL (70-105); SODIUM LEVEL 138 MEQ/L (136-145)
[2016-10-14 18:43] LABS: ERYTHROCYTE SEDIMENTATION RATE 45 mm/hr (0-30)
[2016-10-14] MEDS ORDERED: VITA5ELUD PO (20:05)
--- NOTE | 2016-10-14 21:00 | REPUSA ---
HISTORY: pain and swelling as well as redness in posterior aspect of lumbar spine since surgery to r epair CSF leak on 10/06/16; Patient states symptoms are progressively worsening. TECHNIQUE: MRI of the lumbar spine was performed utilizing multiple sequences in axial and sagittal planes without and with IV contrast material. COMPARISON: Made with the prior study dated 09/23/2016. COMMENTS: The visualized osseous elements are intact with no evidence of fracture or spondylolisthesis. The ma rrow signals are within normal limits. The normal lordotic curvature of the lumbar spine is well rosanna ntained. The conus medullaris and cauda equina are within normal limits. Post-laminectomy changes are again seen at L3-L4 and L4-L5. There is a large fluid collection noted in the posterior soft tissues including dorsal subcutaneous tissues. There is irregular enhancement noted. The fluid collection in the subcutaneous tissues measures approximately 17 cm in craniocaudad dimension and up to 4 cm in transverse and 1.5 cm in AP dimension. Collection is significant enlarg ed since the prior study. There is peripheral heterogeneous enhancement noted. This is most compati ble with an abscess. There is diffuse adjacent subcutaneous swelling. No evidence of discitis or osteomyelitis. Again noted a broad based disc protrusion at L4-L5 with superimposed bulge. There is mild to moderat e bilateral foraminal stenosis present. Minimal bulging is seen at L5-S1. IMPRESSION: Interval exacerbation and enlargement in the posterior fluid collection. Large enhancing fluid collection noted in the posterior soft tissues including dorsal subcutaneous ti ssues. Collection is significant enlarged since the prior study and is most compatible with an absc ess. Discussed with clinical staff. Thank you for your kind referral of this patient. We appreciate the opportunity to participate in thi s patient's care.
--- NOTE | 2016-10-14 21:38 | ED PDOC ---
Post-Departure Follow-Up AT THIS TIME, DR. SALINAS AWARE OF THIS PT. SPOKE WITH DR. MONTEZ AGAIN WHEN RESULTED WERE OBTAINED FROM MRI. ADVISED ADMISSION NEEDED, BUT STATED TO GIVE TO HOSPITALIST. DR. MONTEZ WOULD LIKE CEFAZOLIN 2GRAMS Q8 HOURS. DR. DA SILVA SAW PT EARLIER, NURSING STAFF IN ROOM THE WHOLE TIME. ADVISED THIS AREA WOULD NEED TO BE DRAINED AND THEN DR. DA SILVA LEFT. PROVIDER DID NOT SPEAK WITH HIM REGARDING PLAN OF THIS PT. JAME CASSIDY PA-C Oct 14, 2016 21:38
[2016-10-14] MEDS ORDERED: ACETAMINOPHEN 325 MG TAB PO ONE (21:45)
[2016-10-15] VITALS (8 sets, daily range): BP systolic 88–138; BP diastolic 62–85
[2016-10-15] MEDS: GABAPENTIN 300 MG CAP PO SCH ×4 (01:04→20:06)
[2016-10-15] MEDS: BACLOFEN 10 MG TAB PO SCH ×4 (01:04→20:06)
[2016-10-15] MEDS: PERCOCET 5MG/325MG TAB PO PRN ×3 (01:05→14:25)
[2016-10-15] MEDS: D5W/0.45% SODIUM CHLORIDE 1,000 ML IV SCH ×3 (03:15→23:15)
[2016-10-15 07:14] LABS: MEAN CORPUSCULAR HEMOGLOBIN 31.6 pg (27.0-33.0); MEAN CORPUSCULAR HGB CONC 32.5 g/dl (32.0-36.5); MEAN CORPUSCULAR VOLUME 97.1 fl (80.0-96.0); RED CELL DISTRIBUTION WIDTH 13.8 % (11.5-14.5)
--- NOTE | 2016-10-15 07:29 | CR ---
DATE OF CONSULTATION: 10/14/2016 REASON FOR CONSULTATION: Followup on Staphylococcus Aureus subdural abscess with recurrent swelling and fever. HISTORY OF PRESENT ILLNESS: Mrs. Salas is a pleasant 55-year-old female with a history of a lumbar laminectomy done by Dr. Biggs on 08/26/2016. Two weeks later the patient developed a Staphylococcus (Staph) aureus subdural abscess methicillin sensitive Staphylococcus aureus (MSSA) which needed debridement and she went back to the operating room on 09/06 for drainage of a serosanguineous subcutaneous collection which was positive for MSSA. The patient again went back to the operating room on 09/10 for a subarachnoid fluid collection that was felt to be a cyst but also culture was positive for MSSA. Eventually the patient was discharged home with a peripherally inserted center catheter (PICC) line and home intravenous (IV) antibiotics. She came back to the hospital on 09/26 for increasing fluid and collection under subcutaneously which was felt to be related to a cerebrospinal fluid (CSF) leak. She went back to the operating room on 09/26, culture was negative. C-reaction protein (CRP) was less than 0.3. Sedimentation (sed) rate was within normal. The patient eventually went home on IV cephazolin, nafcillin has been discontinued as the patient was leukopenic with a white count of about 2.9 but clinically doing well. She finished her course of antibiotic last Wednesday. At that point her sed rate was 17, CRP was less than 0.3 for the past two weeks and it was felt appropriate that antibiotics could be discontinued. She had been on antibiotics since September 06. The patient states that initially she was improving. A couple days ago she was walking without her walker, her pain was better controlled. She did not have fevers and last night she had a fever of 100.8, the pain was much worse. She was feeling increased swelling in her back. She has some nausea from the pain but no vomiting. No chest pain or shortness of breath. No abdominal pain, difficulty urinating or change in bowel movements. PAST MEDICAL HISTORY: Past medical history is significant for: 1. History of hypertension. 2. Lung lesion for which she follows up with pulmonary. 3. History of alcoholic pancreatitis five years ago requiring total parenteral nutrition (TPN). PAST SURGICAL HISTORY: 1. Laminectomy on 08/26 followed by complication of MSSA and CSF leak requiring four surgeries. 2. Right shoulder repair. 3. Hysterectomy. 4. Tonsillectomy. FAMILY HISTORY: Mother had pulmonary embolism and father had myocardial infarction ([place]). SOCIAL HISTORY: She denies current alcohol or drug use. She lives with her . She told me today that her wants a divorce after 30 years of marriage. REVIEW OF SYSTEMS: She had some nausea but no vomiting or abdominal pain. She has a headache, low back pain and fever but no chills. PHYSICAL EXAMINATION: VITAL SIGNS: Temperature is 100, pulse 92, respirations 18, blood pressure 96/67 , O2 sat 100% on room air. HEART: Normal S1-S2 with no murmurs, rubs or gallops. LUNGS: Lungs are clear. No wheezes or rhonchi. ABDOMEN: Soft, nontender. BACK: Swelling of the incision site. The incision still has sutures about 15 cm in length. There is erythema of the upper part of their incision with a subcutaneous collection which is very tender to touch and there is erythema on the bottom aspect of the incision but no swelling. LABORATORY DATA: White count is 12.7 which is compared to four days ago at 5.1, hemoglobin 11.4, hematocrit 35.3, platelets 327. Sed rate is 45 increased from 17. Sodium 138, potassium 4, chloride 102, bicarb 27, BUN 9, creatinine 0.76, glucose 89, calcium 9.4, CRP 11.7, which has increased from less than 0.3. Blood cultures two sets were drawn in the emergency room and are pending. Cultures done from the CSF leak on 09/26 that was corrected were negative. Last cultures that were positive were on 09/06 and 09/10 and were positive for MSSA. IMPRESSION: This is a 55-year-old unfortunate female who has had multiple complication from a laminectomy done on 08/26. The patient had a Staphylococcus aureus subdural abscess which was treated with intravenous (IV) antibiotic combination of nafcillin and cephazolin for a month that were discontinued less than five days ago. The patient has developed recurrent fever and subcutaneous edema with MRI findings suggestive of recurrent abscess. MRI was done which showed interval exacerbation and enlargement of the posterior fluid collection with a large enhancing collection in the posterior tissues measuring about 17 cm by 4 cm transverse compatible with an abscess. PLAN The patient has been seen in consultation with Dr. Biggs. The patient is very reluctant to go back to surgery and therefore she will be taken tomorrow to interventional radiology to have the abscess collection drained under interventional radiology. The patient will need a peripherally inserted center catheter (PICC) line and IV antibiotics will be restarted. I have kept her on cefazolin instead of nafcillin as she had mild leukopenia with nafcillin in the past. Will also use rifampin 300 mg by mouth twice a day due to the recurrent nature of this infection. The patient will be treated again with another 4-6 weeks course of antibiotics followed by chronic suppressive therapy for 3-6 months. cc: Derik Biggs MD [facility]ITAL[facility]
[2016-10-15 07:31] LABS: ANION GAP 6 MEQ/L (8-16); BLOOD UREA NITROGEN 12 MG/DL (7-18); CALCIUM LEVEL 8.9 MG/DL (8.5-10.1); CARBON DIOXIDE LEVEL 28 MEQ/L (21-32); CHLORIDE LEVEL 106 MEQ/L (98-107); CREATININE FOR GFR 0.64 MG/DL (0.55-1.02); FERRITIN 200 NG/ML (8-252); GLOMERULAR FILTRATION RATE > 60.0 (>51); GLUCOSE, FASTING 97 MG/DL (70-105); PERCENT SATURATION 4.9 % (13.2-37.4); POTASSIUM SERUM 3.9 MEQ/L (3.5-5.1); SODIUM LEVEL 140 MEQ/L (136-145); TOTAL IRON BINDING CAPACITY 243 UG/DL (250-450)
[2016-10-15] MEDS ORDERED: IPRATROPIUM 0.5MG/ALBUTEROL 2.5MG INH SOL UD 3ML (DUONEB)(J7620) NEB PRN (12:45)
--- NOTE | 2016-10-15 13:02 | IPN ---
DATE: 10/15/2016 SUBJECTIVE: This is a 55-year-old female seen at bedside. She is in some discomfort with her back pain. We have been requested to see her for medical management. Her underlying medical histories include seasonal allergies, asthma, hypertension, lung lesion for which she follows with pulmonology, history of alcoholic pancreatitis. She denies chest pain, nausea, vomiting, was unaware of any fevers or chills. No rigors through the night last night. OBJECTIVE: VITAL SIGNS: Temperature is 98.6, pulse 78, respiratory rate is 18, blood pressure 105/75, SPO2 is 99% on room air. GENERAL: The patient appears to be in no acute distress. Is alert and oriented. HEENT: Unremarkable. LUNGS: Clear. HEART: Regular rate, rhythm. ABDOMEN: Soft. SPINE: The lower lumbar part of the spine, she does have a swollen area which is covered with a bandage. The surrounding area is slightly warm to touch but there is no streaking or erythema, and the bandage does not appear to be soaked with any purulent drainage or blood. LOWER EXTREMITIES: No edema or calf tenderness. No appreciated motor or sensory deficits. LABORATORY DATA: White count is 10, hemoglobin 10, platelets 266. Sodium 140, potassium 3.9, chloride 106, bicarb 20, anion gap 6, BUN is 12, creatinine 0.64, glucose is 97, magnesium 2.0, iron is 12, TIBC 243, ferritin is 200. CRP is 14. Factor five Leiden is pending. IMAGING: Chest x-ray is clear. No acute cardiopulmonary processes. ASSESSMENT AND PLAN: 1. 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 Biggs and Dr. Forbes. Currently she is on cephazolin, and will likely need to have Rifampin in place as well. 2. Hypertension. Her blood pressure has been adequately controlled. She is not currently on any antihypertensives. Lisinopril has been placed on hold. 3. Seasonal allergies with allergic rhinitis, reactive airway and asthma. Will go ahead and continue her on her home dose of Zyrtec and all add on DuoNeb as needed 4. Deep venous thrombosis (DVT) prophylaxis. Thromboembolism deterrent stockings (TEDs) and sequentials. DISPOSITION: Will continue to follow along with you for any medical issues as needed. Her blood pressure does appear to be adequately controlled currently and would recommend that she stay off the lisinopril until after she is ready for discharge. Pain medications, physical therapy and following care for wound care will be directed by Dr. Biggs. Antibiotic management by Dr. Forbes.
[2016-10-15] MEDS ORDERED: LIDOCAINE 1% MDV 20ML VIAL As Ordered ONE (15:25)
--- NOTE | 2016-10-15 16:03 | ECGEPIP ---
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
--- NOTE | 2016-10-15 16:52 | IPN ---
DATE: 10/15/2016 Lizeth seems to be doing a little better today. She went for drainage of the subcutaneous abscess by interventional radiology. Temperature 99.4, pulse 99, respirations 18, blood pressure 138/85, oxygen saturation 100% on room air. BACK: Swollen with erythema especially at the upper incision. LABORATORY DATA White count is down to 10, hemoglobin 10, hematocrit 30.9, platelets 266. Erythrocyte sedimentation rate 45. Sodium 140, potassium 3.9, chloride 106, bicarbonate 28, BUN 12, creatinine 0.64, glucose 97, calcium 8.9. Iron 12, total iron binding capacity (TIBC) 243, iron saturation 4.9, ferritin 200, C-reactive protein (CRP) 14, prealbumin 16.5. Blood cultures two sets are pending. Drainage culture is pending. Chest x-ray report is still pending. Looks clear to me. We will wait for a report. IMPRESSION: 1. 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 The patient on IV cefazolin, had finished a four week course of IV antibiotics. Within five days of discontinuation, patient had recurrent infection. 2. Cerebral spinal fluid (CSF) leak status post surgical correction. 3. Protein calorie malnutrition with hypoalbuminemia. The patient probably needs to have better nutrition to help with healing and add protein shakes to her diet. PLAN: If blood cultures are negative, increase baclofen to 20 mg four times a day. Increase gabapentin 300 mg four times a day. Cefazolin 2 grams IV every 8 hours for a total of 6 weeks along with rifampin 300 mg by mouth three times a day. Antibiotic will be continued for total of 6 weeks, cefazolin 200 mg by mouth.
[2016-10-15] MEDS ORDERED: HYDROmorphone 2 MG TAB PO PRN (18:30)
[2016-10-15] MEDS: MIRALAX *UNIT DOSE* 17GM PACKET PO SCH (20:06)
[2016-10-15] MEDS: SENNA 8.6 MG TAB (SENOKOT) PO SCH (20:06)
[2016-10-15] MEDS: CETIRIZINE (ZyrTEC) 10 MG TAB PO SCH (20:06)
--- NOTE | 2016-10-15 20:11 | CR ---
DATE OF CONSULTATION: 10/14/2016 Ms. Salas is a 55-year-old lady who had multiple issues with her lumbar laminectomy wound, including wound infection and cerebrospinal fluid (CSF) leak. She was doing fine after the last wound exploration and repair of the CSF fistula on September 26. The day before yesterday, she noticed a lump in the incision, that is progressively worse today. This morning she felt that she may have a fever. She was in touch with Dr. Forbes, who asked her to come to the emergency room to be evaluated. Her texted me these events, and I dropped by in the emergency room to look at her. She states that she is getting sore again, though she denies any preoperative lumbar or radicular symptoms. She denies any postural symptoms. Claims the pain otherwise has been under good control, and she was up and about without any issues until yesterday. She has been afebrile in the emergency room. Dr. Forbes had ordered some lab work, which does show a white count of 12.6, elevated sedimentation rate, and elevated C-reactive protein (CRP). Clinically, she is awake and alert, oriented times three. Pupils equal and reacting. Extraocular movements full. I could not detect any gross focal motor or radicular deficits. Foraminal compression tests are negative. The suture line appears intact. There is mild erythema distally, though it could be from the adhesive tape. No rosa cellulitis, even though the incision is tender, and there is a fluctuant swelling beneath the incision. The MRI was done. I do not have all the images up on the PAX. It does show fluid collection, which density is somewhat more that of CSF, infected fluid collection, or even recurrent CSF cannot be excluded, though, once again, the density of the CSF and the fluid collection is not the same. I will await the contrast images to be made accessible. Various options have been discussed with the patient and her via text, including observation, placement of peripherally inserted central catheter (PICC) line again, and either percutaneous aspiration of the fluid for culture and/or wound exploration. Patient would prefer no further wound exploration if possible. She prefers to get a sample with interventional radiology (IR) department. I will await the contrast images of the MRI will be ordered in the PAX system, make further recommendations, and will discuss with Dr. Forbes. 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 Nevertheless, the patient says she did drop by to see her and will try to get hold of Dr. Forbes again.
--- NOTE | 2016-10-15 20:18 | REP ---
PA and lateral chest: Comparison 09/23/2016. The lung cross are clear. Cardiac size is normal. The flor, mediastinum, and bony thorax are unremarkable. Bilaterally symmetric artifacts superimposed over the lower lung cross, possibly gowning or clothing artifact. There is a linear artifact superimposed over the abdominal left upper quadrant, possibly tubing . Impression: Negative PA and lateral chest. Artifactual densities as described. Signed by Maco Hernandez MD 10/15/2016 03:37 P
--- NOTE | 2016-10-15 20:37 | CR ---
DATE OF CONSULTATION: 10/14/2016 This is a patient of Dr. Dumont from [facility] in [place]. REQUESTING PHYSICIAN: Dr. Biggs REASON FOR CONSULTATION: Medical management of hypertension and preoperative evaluation if needed. SUMMARY OF PRESENTATION: This is a 55-year-old who has had unfortunate complication of cerebrospinal (CSF) leak and methicillin-sensitive Staphylococcus aureus (MSSA) surgical site infection, status post hospitalization from September 06 to September 15 and September 28 to September 29. She has had increasing back pain. Has been off antibiotics. She had been sent home on peripherally inserted central catheter (PICC) line, which has since been removed. She is having continued back pain. Is weak and tired. She was brought to the emergency department for evaluation, and an MRI of her L-spine showed enlargement of the posterior fluid collection, enhancing fluid collection in the posterior soft tissues, including the dorsal subcutaneous tissues and is most compatible with an abscess. White cell count is elevated. Erythrocyte sedimentation rate (ESR) and C-reactive protein (CRP) are elevated. CRP was undetectably low on October 10 and is currently 11.7. PAST MEDICAL HISTORY: Notable for: 1. Postsurgical infection and subdural abscess. 2. Hypertension. 3. Lung mass, following with pulmonology. 4. History of pancreatitis from previous alcohol use. 5. Depression. 6. Seizure disorder. 7. Gastroesophageal reflux disease (GERD). 8. Degenerative disc disease, status post laminectomy. SURGICAL HISTORY: Notable for: 1. Lumbar laminectomy 08/26/2016. 2. Wound exploration and debridement. 3. L2 and L4 bilateral decompression with lysis of perineural fibrosis and drainage of loculated subarachnoid cyst, wound exploration, reinforcement of suture line. 4. Right shoulder repair. 5. Hysterectomy. 6. Tonsillectomy. ALLERGIES: She has allergies listed to MORPHINE and Latex. MEDICATIONS AT HOME: Listed as: - Tylenol - baclofen 20 mg by mouth three times a day - Zyrtec 10 mg by mouth at bedtime - fentanyl 50 mcg every third day - Neurontin 300 mg by mouth three times a day - lisinopril 20 mg by mouth at bedtime - Percocet 5/325 two tablets every 6 hours as needed for pain - MiraLax 17 mg by mouth at bedtime - Senokot-S two tablets by mouth at bedtime - multivitamin tablet FAMILY HISTORY: Notable for her father at age 48 of heart attack. Mother with complications of a pulmonary embolism. Two sisters have factor V Leiden deficiency and blood clots. SOCIAL HISTORY: Patient is nonsmoker. She no longer drinks alcohol. She quit 17 years ago. She lives along the [place] and enjoys swimming in the [place] when able. REVIEW OF SYSTEMS: Notable for no headache, no visual changes. She has had unintentional weight loss since her surgery. No chest pain. No shortness of breath. She has decreased exercise tolerance due to back pain. She has not been sleeping well due to pain. She has a history of depression. Otherwise unremarkable. PHYSICAL EXAMINATION: Temperature 100, pulse 92, respirations 18, blood pressure 96/67, 100% on room air. Awake, appropriately interactive, pleasantly conversant. Quite engaged in our conversation. Head is normocephalic. Sinuses are nontender. Pupils equal, round, and reactive. Anicteric. Mucous membranes moist. Neck supple. She is thin appearing with a body mass index (BMI) of 18. Breathing is symmetrical. Inspiratory to expiratory (I-to-E) ratio is 1:3. No wheezes, rales, or rhonchi. Speaking in complete sentences. No accessory muscle use. Heart is in a regular rate and rhythm. Normal S1, S2. Radial pulses 2+, capillary refill is less than 2 seconds. Abdomen is scaphoid, soft. Hypoactive bowel sounds. Nontender. There is no lower extremity edema. Sodium is 138, potassium 4, chloride 102, carbon dioxide 27, BUN 9, creatinine 0.7, glucose 89, C-reactive protein 11.7. White cell count 12.7, hemoglobin 11.4, and platelets of 327, neutrophils 71%. ASSESSMENT: This is a 55-year-old with likely recurrent surgical site abscess. PLAN: 1. Infectious disease. Patient has been seen by Dr. Forbes in the emergency department, who has recommended Ancef. I have taken the liberty to order this to be continued. Further care of her primary issue per the surgical attending is guided by the infectious disease marine consultant. Patient has history of MSSA wound infection. 2. Patient has hypertension. Will continue with angiotensin-converting enzyme (EVELIO) inhibitor. Depending on her clinical course, I would anticipate at this point that she would be trending toward hypotension, so I have elected to hold lisinopril for now. This should be reconsidered as needed. 3. Patient has history of CSF leak. 4. Patient has family history of factor V Leiden deficiency. I believe at this point, based on her number of hospitalizations, it is reasonable to check factor V Leiden during this hospitalization. 5. Patient has anemia. Will check iron studies. Suspecting anemia of chronic disease at this point, if it has not already been tested. 6. Cardiovascular. Patient has low exercise tolerance. She has had multiple reasonable surgery without complication. At this point, she is experiencing no angina or angina equivalent. If she would require surgery, at this point I would recommend continuing to the operating room (OR) without delay or need for further workup.
--- NOTE | 2016-10-15 23:28 | REP ---
ULTRASOUND GUIDED LOWER BACK ABSCESS DRAIN: The procedure was performed under the direct supervision of Dr. Vivar. The patient has a history of a large enhancing fluid collection noted in the posterior soft tissues including dorsal subcutaneous tissues overlying the lumbar spine. This was seen on a previous MRI performed on 10/14/2016. The risks and benefits of the procedure were explained to the patient and informed consent was obtained. The fluid collection was localized using ultrasound guidance. The skin was prepped and draped in a sterile fashion. 1% lidocaine was used as a local anesthetic. Using ultrasound guidance, an 18-gauge needle was inserted and approximately 8 mL of yellowish fluid was withdrawn. The needle was removed and a #5-Lithuanian skater centesis catheter was inserted and 10 mL of fluid was withdrawn. The fluid was sent to the lab for analysis. The patient tolerated the procedure well and there were no immediate complications. Reviewed by JENNIFER Mooney 10/16/2016 05:29 PEdited and Signed by Maco Vivar MD 10/19/2016 05:33 P
[2016-10-16] MEDS: HYDROmorphone 2 MG TAB PO PRN ×3 (04:51→17:36)
[2016-10-16] MEDS: BACLOFEN 10 MG TAB PO SCH ×4 (05:23→23:17)
[2016-10-16 06:00] VITALS: BP 125/89
[2016-10-16 06:51] LABS: MEAN CORPUSCULAR HEMOGLOBIN 32.6 pg (27.0-33.0); MEAN CORPUSCULAR HGB CONC 33.5 g/dl (32.0-36.5); MEAN CORPUSCULAR VOLUME 97.2 fl (80.0-96.0); RED CELL DISTRIBUTION WIDTH 13.7 % (11.5-14.5); WHITE BLOOD COUNT 8.7 K/mm3 (4.0-10.0)
[2016-10-16 07:13] LABS: ANION GAP 9 MEQ/L (8-16); BLOOD UREA NITROGEN 4 MG/DL (7-18); CALCIUM LEVEL 8.3 MG/DL (8.5-10.1); CARBON DIOXIDE LEVEL 24 MEQ/L (21-32); CHLORIDE LEVEL 108 MEQ/L (98-107); CREATININE FOR GFR 0.57 MG/DL (0.55-1.02); GLOMERULAR FILTRATION RATE > 60.0 (>51); GLUCOSE, FASTING 101 MG/DL (70-105); POTASSIUM SERUM 3.7 MEQ/L (3.5-5.1); SODIUM LEVEL 141 MEQ/L (136-145)
[2016-10-16] MEDS: GABAPENTIN 300 MG CAP PO SCH ×4 (09:35→23:17)
[2016-10-16] MEDS: D5W/0.45% SODIUM CHLORIDE 1,000 ML IV SCH ×2 (09:35→15:00)
[2016-10-16 10:00] VITALS: BP 112/72
--- NOTE | 2016-10-16 12:23 | IPN ---
DATE: 10/16/2016 TIME PATIENT WAS SEEN: 10:30 a.m. Patient has been seen and examined at bedside. No acute events overnight. Patient did have an elevated temperature, however, yesterday morning around 1:00 a.m. Temperature was 100.2. Today, patient continues to complain of pain in her back and swelling of her back; however, patient denies any problems with bowel movements or urination. Denies any loss of sensation. Patient does have some back pain when moving her right leg, however. Otherwise, patient denies any other current new complaints. PHYSICAL EXAMINATION: VITAL SIGNS: Temperature 98.8, pulse 106, respirations 18, blood pressure 112/72, oxygen saturation 98% on room air. GENERAL: Patient is a cachectic-looking, middle-age female who is awake, alert, oriented times three. Does not appear to be in distress, laying in a right lateral decubitus position. HEENT: Normocephalic, atraumatic. Extraocular muscles intact. Mucous moist. NECK: Supple. No neck vein adenopathy. CARDIOVASCULAR: Regular rate and rhythm. S1, S2. No murmurs, rubs or gallops. LUNGS: Clear to auscultation bilaterally. No wheezing, rales or rhonchi. ABDOMEN: Positive bowel sounds. Soft, nontender, nondistended. There are no peritoneal signs. No ecchymosis. EXTREMITIES: No edema, clubbing or cyanosis. BACK: Patient does have an incision in her back that is roughly 20 cm. There is a swelling noted at the proximal end of the incision. There were slight erythematous changes; however, no drainage and also, it was very tender to palpation. Dressing, however, was dry, clean and intact. SKIN: Warm and dry. NEUROLOGIC: Cranial nerves II-XII intact. Patient did have pain when her right leg was elevated. LABORATORIES: WBC 8.7, hemoglobin 10.1, hematocrit 30, platelet count 551, MCV 97.2. Sodium 141, potassium 3.7, chloride 108, bicarbonate 24, BUN 4, creatinine 0.57, GFR greater than 60, fasting glucose 101, calcium 8.3. C-reactive protein (CRP) today is improved compared to day before. Today it is 12.3, yesterday was 14. Factor V Leiden is currently pending. Patient's blood culture times two shows no growth after two days. Patient's abscess fluid and aerobic cultures currently pending. Patient's spinal abscess culture shows a few gram-positive cocci. Sensitivity is pending. The patient did have an ultrasound-guided abscess drain yesterday; 8 mL of yellowish fluid was withdrawn. Another collection of 10 mL of fluid was drawn. Patient had a PA and lateral chest x-ray yesterday. It showed negative PA and lateral chest. Patient had a lumbar MRI yesterday. It showed interval exacerbation and enlargement in the posterior fluid collection, large enhancing fluid collection noted in the posterior soft tissues, including dorsal subcutaneous tissues. Collection is significantly enlarged since prior study and most compatible with an abscess. ASSESSMENT AND PLAN: 1. A 55-year-old female presented with recurrent Staphylococcus aureus abscess status post interventional radiology drainage. Continue patient on intravenous (IV) cefazolin. Patient had finished four weeks of IV antibiotics and within five days of discontinuation, patient developed the recurrent infection. 2. Cerebrospinal fluid (CFS) leakage status post surgical collection. 3. Protein calorie malnutrition with hypoalbuminemia. Patient probably needs better nutrition; however, patient has refused the Ensure supplement. At this point, if blood cultures are currently negative. Baclofen has been increased to 20 mg four times a day. Gabapentin has been increased to 300 mg four times a day. We will continue cefazolin 2 grams IV every 8 hours for a total of six weeks, along with rifampin 300 mg by mouth three times a day. That antibiotic will be continued for a total of six weeks. In addition, patient is getting a peripherally inserted central catheter (PICC) line this afternoon. Patient has been discussed with attending doctor, Dr. Forbes. My preceptor for this patient encounter was Dr. Magaly Forbes. The preceptor was physically present in the building during the encounter and was fully available as needed. All aspects of the patient interview, examination, medical decision-making process, and medical care plan development were reviewed and approved by the preceptor. The preceptor is aware and concurs with the plan as stated in the body of this note and will attest to such by his/her co-signature. CAMRON
--- NOTE | 2016-10-16 14:42 | IPN ---
DATE: 10/16/2016 55-year-old female seen at bedside. No overnight issues reported. She does continue to have some back pain which is painful for her to lay on her back. She did have interventional radiology attempt to drain yesterday. OBJECTIVE: Temperature 98.8, pulse 93, respiratory rate is 18, BP is 112/78, SPO2 is 90% on room air. GENERAL: The patient appears to be in no acute distress. Is alert, oriented. HEENT: Unremarkable. LUNGS: Clear. HEART: Regular rhythm. ABDOMEN: Soft. Her back does still show some swollen, erythematous area at the lower lumbar region. Extremities: No edema or calf tenderness. LABORATORY DATA: White count is 8.7, hemoglobin 10.1, platelets 311,000. Sodium 141, potassium 3.7, chloride 108, bicarb 24, anion gap 9, BUN is 4, creatinine 0.57, glucose 101. C-reactive protein is 12.3 down from 14. Gram stain of the abscess and anaerobic cultures pending. Blood cultures negative. ASSESSMENT/PLAN 1. Epidural abscess secondary surgical wound infection, history of Staphylococcus aureus. Appreciate Dr. Forbes's input. The patient continues on cephazolin and rifampicin. She is getting a a PICC line today. 2. Back pain. Wound and back pain is addressed by Dr. Biggs. 3. Hypertension. Blood pressure is adequately controlled. She is currently off of her lisinopril. Continue to hold this since her blood pressures been doing well at this time but can be reinstituted at some future point. 4. Seasonal allergies. Continue with Zyrtec. Apparently she has had a history of reactive airway in the past. Questionable history of asthma. She is doing well with her breathing. No wheezing. We can add on Jackelin if we need to this in the future. 5. She does complain of developing a fever blister at the lower portion of the dao border below her bottom lip. We will go ahead and put her on some Valtrex. She is additionally having sore throat. We will put her on Cepacol lozenges. 6. DVT prophylaxis, Thromboembolic deterrent stockings (TEDS) and sequential. DISPOSITION: The patient does appear to be stable hemodynamically. She is to get a PICC line today. Appreciate Dr. Forbes's and Dr. Biggs's management as well.
[2016-10-16 15:00] VITALS: BP 130/71
[2016-10-16] MEDS: valACYclovir HCL 500 MG TAB PO SCH ×2 (15:00→20:50)
[2016-10-16] MEDS: CEPACOL LOZENGE PO PRN ×2 (15:00→23:17)
--- NOTE | 2016-10-16 17:21 | IPNPDOC ---
Date Seen The patient was seen on 10/15/16. Progress Note SUBJECTIVE: Patient is a 55-year-old female who presented to the ED for swelling at her incision yesterday, 10/14/16. She states she had been doing well at home. Wednesday she noticed the swelling increasing into her side. She reports a fever on Wednesday of 101.3F. She took a Tylenol and it came down to 100F. The lowest recorded on Wednesday was 99F. Back pain is rated about the same. States she cannot move because of the muscle spasms. She feels a tightness that extends across her back. The back pain does not radiate down her legs. She has been ambulating well and feels steady on her feet. OBJECTIVE PHYSICAL EXAMINATION: VITAL SIGNS: Please see below. No new focal deficits noted on exam. LABORATORY DATA: Please see below. MICROBIOLOGY: Please see below. Cultures pending. IMAGING: Lumbar MRI shows an enlargement in the posterior fluid collection. Thought to be most compatible with an abscess. ASSESSMENT AND PLAN: This is a -year-old [RACE] [GENDER] with . PROBLEMS: 1. Epidural abscess, post op, secondary to infection. Cultures pending. 2. Chronic low back pain Cont Fentanyl patch. Adding Dilaudid 1 mg q 12 hrs to help with her pain. Stopping Percocet and Oxycontin. VS, I&O, 24H, Fishbone Vital Signs/I&O Vital Signs Date Time Temp Pulse Resp B/P (MAP) Pulse Ox O2 Delivery O2 Flow Rate FiO2 10/15/16 17:00 17 10/15/16 14:00 99.4 99 138/85 (102) 100 10/15/16 02:05 Room Air I&O- Last 24 Hours up to 6 AM 10/15/16 05:59 Intake Total 50 ml Output Total 100 ml Balance -50 ml Laboratory Data 24H LABS Laboratory Tests 2 10/15/16 04:23: Urine Appearance CLEAR, Urine Color MELITA, Urine pH 5.0, Urine Specific [place] 1.033, Urine Protein NEGATIVE, Urine Glucose (UA) NEGATIVE, Urine Ketones 1+H, Urine Urobilinogen 0.2, Urine Bilirubin NEGATIVE, Urine Leukocyte Esterase NEGATIVE, Urine Blood NEGATIVE, Urine Nitrite NEGATIVE, Urine WBC (Auto) 2, Urine RBC (Auto) 2, Urine Hyaline Casts (Auto) 0, Urine Bacteria (Auto) NEGATIVE , Urine Squamous Epithelial Cells 2, Urine Mucus (Auto) SMALL, Urine Sperm (Auto ) 10/15/16 06:56: Anion Gap 6L, Glomerular Filtration Rate > 60.0, Blood Urea Nitrogen 12, Creatinine 0.64, Sodium Level 140, Potassium Level 3.9, Chloride Level 106, Carbon Dioxide Level 28, Calcium Level 8.9, Magnesium Level 2.0, Iron Level 12L , Total Iron Binding Capacity 243L, Transferrin % Saturation 4.9L, Ferritin 200 , C-Reactive Protein, Quantitative 14.00H, Prealbumin 16.5L CBC/BMP Laboratory Tests 10/15/16 06:56 Red Blood Count 3.18 L, Mean Corpuscular Volume 97.1 H, Mean Corpuscular Hemoglobin 31.6, Mean Corpuscular Hemoglobin Concent 32.5, Red Cell Distribution Width 13.8, Calcium Level 8.9 Microbiology Microbiology 10/14/16 Blood Culture - Preliminary, Resulted No growth after 24 hours . All specim... 10/14/16 Blood Culture, Received Pending 10/15/16 Anaerobic Culture, Received Pending 10/15/16 Gram Stain, Received Pending 10/15/16 Abscess Culture, Received Pending WIL MCCLURE PA-C Oct 15, 2016 18:42
[2016-10-16] MEDS: SENNA 8.6 MG TAB (SENOKOT) PO SCH (20:50)
[2016-10-16] MEDS: CETIRIZINE (ZyrTEC) 10 MG TAB PO SCH (20:50)
[2016-10-16] MEDS: MIRALAX *UNIT DOSE* 17GM PACKET PO SCH (20:50)
[2016-10-16] MEDS: fentaNYL 50 MCG/HR PATCH TD SCH (20:52)
[2016-10-16] MEDS: FENTANYL REMOVAL DOCUMENTATION MISC XX SCH (20:55)
[2016-10-16 22:00] VITALS: BP 127/91
[2016-10-16] MEDS: ACETAMINOPHEN TAB 650MG DOSE (2X325MG) PO SCH (23:45)
[2016-10-17] VITALS (7 sets, daily range): BP systolic 119–141; BP diastolic 67–95
[2016-10-17] MEDS: HYDROmorphone 2 MG TAB PO PRN ×4 (00:17→18:57)
[2016-10-17] MEDS: D5W/0.45% SODIUM CHLORIDE 1,000 ML IV SCH ×2 (01:45→14:11)
[2016-10-17] MEDS: SODIUM CHLORIDE 0.9% INJ 10 ML SYR IV SCH ×2 (05:01→16:52)
[2016-10-17] MEDS: GABAPENTIN 300 MG CAP PO SCH ×4 (05:08→23:13)
[2016-10-17] MEDS: BACLOFEN 10 MG TAB PO SCH ×4 (05:09→23:13)
[2016-10-17] MEDS: ACETAMINOPHEN TAB 650MG DOSE (2X325MG) PO SCH ×4 (05:09→23:14)
[2016-10-17 05:37] LABS: MEAN CORPUSCULAR VOLUME 96.9 fl (80.0-96.0); RED CELL DISTRIBUTION WIDTH 13.6 % (11.5-14.5); WHITE BLOOD COUNT 7.5 K/mm3 (4.0-10.0)
[2016-10-17 05:51] LABS: ANION GAP 6 MEQ/L (8-16); BLOOD UREA NITROGEN 4 MG/DL (7-18); CALCIUM LEVEL 8.6 MG/DL (8.5-10.1); CARBON DIOXIDE LEVEL 27 MEQ/L (21-32); CHLORIDE LEVEL 109 MEQ/L (98-107); CREATININE FOR GFR 0.47 MG/DL (0.55-1.02); GLOMERULAR FILTRATION RATE > 60.0 (>51); GLUCOSE, FASTING 86 MG/DL (70-105); POTASSIUM SERUM 3.8 MEQ/L (3.5-5.1); SODIUM LEVEL 142 MEQ/L (136-145)
[2016-10-17] MEDS: valACYclovir HCL 500 MG TAB PO SCH ×3 (09:16→20:07)
--- NOTE | 2016-10-17 15:11 | IPN ---
DATE: 10/17/2016 55-year-old female seen at bedside resting more comfortably since having the IR drainage of her epidural abscess. She has not had any fevers, chills or rigors and does appear to be doing better with her symptoms and back pain better controlled. OBJECTIVE: Temperature is 98.8, pulse 95, respiratory rate 18, blood pressure 131/78, SpO2 is 98% on room air. GENERAL: The patient appears to be in no acute distress, alert and oriented. HEENT: Unremarkable. LUNGS: Clear. HEART: Regular rate and rhythm. ABDOMEN: Soft. EXTREMITIES: No edema or calf tenderness. Examination of the back does show a small amount of erythema. The dressing does not appear to be soaked today. Lower extremities do not show any motor or sensory deficits. LABORATORIES: White count 7.5, hemoglobin 9.9, and platelets are 340,000. Sodium 142, potassium 3.8, chloride 109, bicarb 27, anion gap 6, BUN is 4, creatinine 0.47, glucose 86. C-reactive protein is 6.99 down from 12.3. ASSESSMENT/PLAN: 1. Epidural abscess secondary to surgical wound infection, history Staphylococcus aureus. Appreciate Dr. Forbes's input. She currently has a PICC line in place and will continue with cephazolin and started rifampin. Additionally, for the wound site care will be provided by Dr. Biggs. 2. Back pain. Wound and back pain addressed by Dr. Biggs. 3. Hypertension. Blood pressure adequately controlled. Up to this point, she has actually been a little low with her blood pressure, but I see that she is climbing with her systolic blood pressure. Will go ahead and restart her lisinopril. 4. Seasonal allergies with reactive airway component and allergic rhinitis. Continue on Zyrtec and DuoNebs as needed. 5. Fever blister on the lower lip. Continue on Valtrex. Cepacol for sore throat. 6. Deep vein thrombosis (DVT) prophylaxis. Thromboembolic deterrent stockings (TEDS) and sequentials. DISPOSITION: The patient is hemodynamically stable. PICC line in place. Antibiotics have been adjusted and will resume her lisinopril for blood pressure. Defer wound care and back pain to the primary team providing care for the patient. If any further questions should arise, please do not hesitate to contact the hospitalist service tomorrow. Dr. Castro will be taking over for the care of this patient for the rest of the week.
--- NOTE | 2016-10-17 15:57 | IPNPDOC ---
Subjective Date Seen The patient was seen on 10/17/16. Subjective Chief Complaint/HPI The patient is a 55-year-old female admitted with a reason for visit of Back Pain. Assessment /Plan Assessment Pt AVSS. C/o low back muscle spasms. Ambulating on alonso. No active pus discharge from wound. Labs microbiology: + for Staph. On Cefazoline iv via PICC On Baclofen for spasms. WBC trending down. DVT prophylaxis: mechanical A: pt stable, no signs of septic shock P: continue current management Dr. Michela Fair MD, FRCSC, FAANS, FEBNS Plan/VTE VTE Prophylaxis Ordered?: Yes VTE Exclusion Pharmacological: At Low Risk for VTE VS, I&O, 24H, Fishbone Vital Signs/I&O Vital Signs Date Time Temp Pulse Resp B/P (MAP) Pulse Ox O2 Delivery O2 Flow Rate FiO2 10/17/16 14:00 99.0 98 18 134/95 (108) 98 Room Air I&O- Last 24 Hours up to 6 AM 10/17/16 06:00 Intake Total 4570 ml Output Total 2125 ml Balance 2445 ml Laboratory Data 24H LABS Laboratory Tests 2 10/17/16 05:16: Anion Gap 6L, Glomerular Filtration Rate > 60.0, Blood Urea Nitrogen 4L, Creatinine 0.47L, Sodium Level 142, Potassium Level 3.8, Chloride Level 109H, Carbon Dioxide Level 27, Calcium Level 8.6, C-Reactive Protein, Quantitative 6.99H CBC/BMP Laboratory Tests 10/17/16 05:16 Red Blood Count 3.10 L, Mean Corpuscular Volume 96.9 H, Mean Corpuscular Hemoglobin 32.0, Mean Corpuscular Hemoglobin Concent 33.0, Red Cell Distribution Width 13.6, Calcium Level 8.6 Microbiology Microbiology 10/14/16 Blood Culture - Preliminary, Resulted No Growth after 48 hours. All Specime... 10/14/16 Blood Culture - Preliminary, Resulted No Growth after 48 hours. All Specime... 10/15/16 Anaerobic Culture - Final, Complete 10/16/16 MRSA Screen, Received Pending 10/15/16 Gram Stain - Final, Complete 10/15/16 Abscess Culture - Final, Complete Staphylococcus Aureus MICHELA FAIR MD Oct 17, 2016 15:57
[2016-10-17 16:08] LABS: ALBUMIN/GLOBULIN RATIO 0.91 (1.00-1.93); ALKALINE PHOSPHATASE 67 U/L (45-117); ALT/SGPT 22 U/L (12-78); AST/SGOT 9 U/L (15-37); BILIRUBIN,DIRECT 0.1 MG/DL (0.0-0.2); BILIRUBIN,TOTAL 0.4 MG/DL (0.2-1.0); TOTAL PROTEIN 6.3 GM/DL (6.4-8.2)
[2016-10-17] MEDS: MIRALAX *UNIT DOSE* 17GM PACKET PO SCH (20:07)
[2016-10-17] MEDS: SENNA 8.6 MG TAB (SENOKOT) PO SCH (20:07)
[2016-10-17] MEDS: CETIRIZINE (ZyrTEC) 10 MG TAB PO SCH (20:07)
[2016-10-18] MEDS: HYDROmorphone 2 MG TAB PO PRN ×4 (01:08→20:34)
[2016-10-18] MEDS: D5W/0.45% SODIUM CHLORIDE 1,000 ML IV SCH ×2 (01:08→12:13)
[2016-10-18] MEDS: CEPACOL LOZENGE PO PRN (01:12)
[2016-10-18 02:00] VITALS: BP 117/73
[2016-10-18] MEDS: SODIUM CHLORIDE 0.9% INJ 10 ML SYR IV SCH ×2 (05:08→17:53)
[2016-10-18] MEDS: GABAPENTIN 300 MG CAP PO SCH ×4 (05:16→23:39)
[2016-10-18] MEDS: BACLOFEN 10 MG TAB PO SCH ×4 (05:16→23:39)
[2016-10-18 05:41] LABS: MEAN CORPUSCULAR HEMOGLOBIN 31.4 pg (27.0-33.0); MEAN CORPUSCULAR HGB CONC 32.1 g/dl (32.0-36.5); MEAN CORPUSCULAR VOLUME 97.9 fl (80.0-96.0); RED CELL DISTRIBUTION WIDTH 13.6 % (11.5-14.5); WHITE BLOOD COUNT 5.7 K/mm3 (4.0-10.0)
[2016-10-18 05:56] LABS: ANION GAP 8 MEQ/L (8-16); BLOOD UREA NITROGEN 4 MG/DL (7-18); CALCIUM LEVEL 8.8 MG/DL (8.5-10.1); CARBON DIOXIDE LEVEL 25 MEQ/L (21-32); CHLORIDE LEVEL 110 MEQ/L (98-107); GLOMERULAR FILTRATION RATE > 60.0 (>51); GLUCOSE, FASTING 87 MG/DL (70-105); SODIUM LEVEL 143 MEQ/L (136-145)
[2016-10-18 06:00] VITALS: BP 148/94
[2016-10-18] MEDS: valACYclovir HCL 500 MG TAB PO SCH ×3 (08:57→20:35)
[2016-10-18 10:00] VITALS: BP 142/88
[2016-10-18] MEDS ORDERED: BISACODYL 10 MG SUPP PR PRN (11:45)
--- NOTE | 2016-10-18 12:05 | IPNPDOC ---
Date Seen The patient was seen on 10/18/16. Progress Note Hospitalist Progress Note Subjective: Patient states that she was overall doing well, but does report some spasms in her back. Objective: Physical Exam: Vitals: Vital Sign - Last 24 Hours 10/17/16 10/17/16 10/17/16 10/17/16 12:28 14:00 18:00 18:57 Temp 99.0 98.0 Pulse 98 94 Resp 22 18 18 20 B/P (MAP) 134/95 (108) 141/93 (109) Pulse Ox 98 100 O2 Delivery Room Air Room Air 10/17/16 10/18/16 10/18/16 10/18/16 22:00 01:08 02:00 06:00 Temp 98.1 97.4 97.6 Pulse 84 82 88 Resp 18 17 18 18 B/P (MAP) 129/86 (100) 117/73 (88) 148/94 (112) Pulse Ox 98 98 99 O2 Delivery Room Air Room Air Room Air 10/18/16 10/18/16 10/18/16 07:38 08:10 10:00 Temp 100.4 Pulse 103 Resp 18 18 18 B/P (MAP) 142/88 (106) Pulse Ox 98 O2 Delivery Room Air Room Air Room Air General: Awake, alert, no acute distress HEENT: Normocephalic, atraumatic, extraocular movements intact CV: Regular rate and rhythm, no murmurs rubs or gallops Lungs: Clear to auscultation bilaterally Abd: Soft, nontender, nondistended Extremities: No edema Neuro: Alert and oriented 3, normal speech Psych: Normal mood and affect Labs and Imaging: Laboratory Tests 10/18/16 05:22 Red Blood Count 3.11 L, Mean Corpuscular Volume 97.9 H, Mean Corpuscular Hemoglobin 31.4, Mean Corpuscular Hemoglobin Concent 32.1, Red Cell Distribution Width 13.6, Calcium Level 8.8 Assessment and Plan: 55-year-old female with hypertension, lung mass followed by pulmonology, history of alcohol abuse with prior pancreatitis, depression, seizure disorder, GERD, degenerative disc disease in her back status post multiple surgeries with recent postsurgical infection and subdural abscess. She has been admitted by Dr. Biggs for management of her postsurgical infection, and he has consult with us for medical management of her chronic issues. 1. Postsurgical infection and subdural abscess: These are being managed by Dr. Biggs and Dr. Frobes. 2. Hypertension: We had previously been holding the patient's home EVELIO inhibitor , but as her blood pressure is beginning to get back up, we will restart the EVELIO inhibitor. I would recommend stopping her IV fluids at this time. 3. Family history of factor V Leiden deficiency: Factor V Leiden is currently pending. We will follow this up. 4. Seasonal allergies with reactive airway component of allergic rhinitis: Continue Zyrtec and as needed DuoNeb's 5. Fever blister on the lower lip: Continue Valtrex. DVT prophylaxis: As per her primary team VS, I&O, 24H, Fishbone Vital Signs/I&O Vital Signs Date Time Temp Pulse Resp B/P (MAP) Pulse Ox O2 Delivery O2 Flow Rate FiO2 10/18/16 10:00 100.4 103 18 142/88 (106) 98 Room Air I&O- Last 24 Hours up to 6 AM 10/18/16 05:59 Intake Total 3710 ml Output Total 3525 ml Balance 185 ml Laboratory Data 24H LABS Laboratory Tests 2 10/18/16 05:22: Anion Gap 8, Glomerular Filtration Rate > 60.0, Blood Urea Nitrogen 4L, Creatinine 0.50L, Sodium Level 143, Potassium Level 4.0, Chloride Level 110H, Carbon Dioxide Level 25, Calcium Level 8.8, C-Reactive Protein, Quantitative 3.32H CBC/BMP Laboratory Tests 10/18/16 05:22 Red Blood Count 3.11 L, Mean Corpuscular Volume 97.9 H, Mean Corpuscular Hemoglobin 31.4, Mean Corpuscular Hemoglobin Concent 32.1, Red Cell Distribution Width 13.6, Calcium Level 8.8 Microbiology Microbiology 10/14/16 Blood Culture - Preliminary, Resulted No Growth after 72 hours. All specime... 10/14/16 Blood Culture - Preliminary, Resulted No Growth after 72 hours. All specime... 10/15/16 Anaerobic Culture - Final, Complete 10/16/16 MRSA Screen - Final, Complete 10/15/16 Gram Stain - Final, Complete 10/15/16 Abscess Culture - Final, Complete Staphylococcus Aureus NHUNG JAIMES Oct 18, 2016 12:05
--- NOTE | 2016-10-18 13:56 | IPNPDOC ---
Subjective Date Seen The patient was seen on 10/18/16. Subjective Chief Complaint/HPI The patient is a 55-year-old female admitted with a reason for visit of Back Pain. Assessment /Plan Assessment Pt seen, no change in her clinical and neurological status. No new complains apart from constipation which I have address with her nurse. Care plan according Dr. Biggs management. Dr. Michela Fair Plan/VTE VTE Prophylaxis Ordered?: Yes VTE Exclusion Pharmacological: At Low Risk for VTE VS, I&O, 24H, Fishbone Vital Signs/I&O Vital Signs Date Time Temp Pulse Resp B/P (MAP) Pulse Ox O2 Delivery O2 Flow Rate FiO2 10/18/16 10:00 100.4 103 18 142/88 (106) 98 Room Air I&O- Last 24 Hours up to 6 AM 10/18/16 06:00 Intake Total 3620 ml Output Total 3400 ml Balance 220 ml Laboratory Data 24H LABS Laboratory Tests 2 10/18/16 05:22: Anion Gap 8, Glomerular Filtration Rate > 60.0, Blood Urea Nitrogen 4L, Creatinine 0.50L, Sodium Level 143, Potassium Level 4.0, Chloride Level 110H, Carbon Dioxide Level 25, Calcium Level 8.8, C-Reactive Protein, Quantitative 3.32H CBC/BMP Laboratory Tests 10/18/16 05:22 Red Blood Count 3.11 L, Mean Corpuscular Volume 97.9 H, Mean Corpuscular Hemoglobin 31.4, Mean Corpuscular Hemoglobin Concent 32.1, Red Cell Distribution Width 13.6, Calcium Level 8.8 Microbiology Microbiology 10/14/16 Blood Culture - Preliminary, Resulted No Growth after 72 hours. All specime... 10/14/16 Blood Culture - Preliminary, Resulted No Growth after 72 hours. All specime... 10/15/16 Anaerobic Culture - Final, Complete 10/16/16 MRSA Screen - Final, Complete 10/15/16 Gram Stain - Final, Complete 10/15/16 Abscess Culture - Final, Complete Staphylococcus Aureus MICHELA FAIR MD Oct 18, 2016 13:56
[2016-10-18 14:00] VITALS: BP 160/90
[2016-10-18 18:00] VITALS: BP 160/70
[2016-10-18] MEDS: LISINOPRIL 20 MG TAB PO SCH (20:35)
[2016-10-18] MEDS: MIRALAX *UNIT DOSE* 17GM PACKET PO SCH (20:35)
[2016-10-18] MEDS: CETIRIZINE (ZyrTEC) 10 MG TAB PO SCH (20:35)
[2016-10-18] MEDS: SENNA 8.6 MG TAB (SENOKOT) PO SCH (20:35)
[2016-10-18 22:00] VITALS: BP 157/88
[2016-10-18] MEDS: ACETAMINOPHEN TAB 650MG DOSE (2X325MG) PO PRN (22:11)
[2016-10-19 02:00] VITALS: BP 130/82
[2016-10-19] MEDS: HYDROmorphone 2 MG TAB PO PRN ×4 (02:45→21:24)
[2016-10-19] MEDS: GABAPENTIN 300 MG CAP PO SCH ×4 (05:03→23:55)
[2016-10-19] MEDS: SODIUM CHLORIDE 0.9% INJ 10 ML SYR IV SCH ×2 (05:04→17:59)
[2016-10-19 05:40] LABS: MEAN CORPUSCULAR HEMOGLOBIN 32.8 pg (27.0-33.0); MEAN CORPUSCULAR HGB CONC 34.4 g/dl (32.0-36.5); MEAN CORPUSCULAR VOLUME 95.2 fl (80.0-96.0); RED CELL DISTRIBUTION WIDTH 13.4 % (11.5-14.5)
[2016-10-19 05:57] LABS: ANION GAP 8 MEQ/L (8-16); BLOOD UREA NITROGEN 3 MG/DL (7-18); CALCIUM LEVEL 8.5 MG/DL (8.5-10.1); CARBON DIOXIDE LEVEL 28 MEQ/L (21-32); CHLORIDE LEVEL 109 MEQ/L (98-107); CREATININE FOR GFR 0.47 MG/DL (0.55-1.02); GLOMERULAR FILTRATION RATE > 60.0 (>51); GLUCOSE, FASTING 87 MG/DL (70-105); POTASSIUM SERUM 4.1 MEQ/L (3.5-5.1); SODIUM LEVEL 145 MEQ/L (136-145)
[2016-10-19 06:00] VITALS: BP 150/88
[2016-10-19] MEDS: BACLOFEN 10 MG TAB PO SCH ×4 (06:03→23:55)
[2016-10-19] MEDS: valACYclovir HCL 500 MG TAB PO SCH ×3 (09:06→21:15)
[2016-10-19] MEDS: ACETAMINOPHEN TAB 650MG DOSE (2X325MG) PO PRN ×2 (09:52→22:27)
[2016-10-19 10:00] VITALS: BP 143/84
--- NOTE | 2016-10-19 12:32 | IPNPDOC ---
Date Seen The patient was seen on 10/19/16. Progress Note Hospitalist Progress Note Subjective: Patient continues to report back spasms, but is also down today about how much she has been in the hospital recently Objective: Physical Exam: Vitals: Vital Sign - Last 24 Hours 10/18/16 10/18/16 10/18/16 10/18/16 14:00 14:04 18:00 20:34 Temp 100.1 100.0 Pulse 98 93 Resp 18 18 18 18 B/P (MAP) 160/90 (113) 160/70 (100) Pulse Ox 97 100 O2 Delivery Room Air Room Air Room Air Room Air 10/18/16 10/18/16 10/19/16 10/19/16 20:35 22:00 02:00 02:45 Temp 100.3 97.7 Pulse 97 84 Resp 18 18 18 B/P (MAP) 157/88 157/88 (111) 130/82 (98) Pulse Ox 97 97 O2 Delivery Room Air Room Air Room Air 10/19/16 10/19/16 10/19/16 10/19/16 03:15 06:00 09:07 09:52 Temp 97.4 Pulse 93 Resp 18 20 18 B/P (MAP) 150/88 (108) Pulse Ox 99 O2 Delivery Room Air Room Air 10/19/16 10:00 Temp 100.6 Pulse 91 Resp 18 B/P (MAP) 143/84 (103) Pulse Ox 99 O2 Delivery Room Air General: Awake, alert, no acute distress HEENT: Normocephalic, atraumatic, extraocular movements intact CV: Regular rate and rhythm Lungs: Clear to auscultation bilaterally, no wheeze Abd: Soft, nontender, nondistended Extremities: No edema Neuro: Alert and oriented 3, normal speech Psych: frustrated and a bit down, but denies true depression Labs and Imaging: Laboratory Tests 10/19/16 05:11 Red Blood Count 3.11 L, Mean Corpuscular Volume 95.2, Mean Corpuscular Hemoglobin 32.8, Mean Corpuscular Hemoglobin Concent 34.4, Red Cell Distribution Width 13.4, Calcium Level 8.5 Assessment and Plan: 55-year-old female with hypertension, lung mass followed by pulmonology, history of alcohol abuse with prior pancreatitis, depression, seizure disorder, GERD, degenerative disc disease in her back status post multiple surgeries with recent postsurgical infection and subdural abscess. She has been admitted by Dr. Biggs for management of her postsurgical infection, and he has consulted us for medical management of her chronic issues. 1. Postsurgical infection and subdural abscess: These are being managed by Dr. Biggs and Dr. Forbes. 2. Hypertension: Continue home EVELIO inhibitor. 3. Family history of factor V Leiden deficiency: Factor V Leiden is currently pending. We will follow this up. 4. Seasonal allergies with reactive airway component of allergic rhinitis: Continue Zyrtec and as needed DuoNeb's 5. Fever blister on the lower lip: Continue Valtrex. DVT prophylaxis: As per her primary team VS, I&O, 24H, Fishbone Vital Signs/I&O Vital Signs Date Time Temp Pulse Resp B/P (MAP) Pulse Ox O2 Delivery O2 Flow Rate FiO2 10/19/16 10:00 100.6 91 18 143/84 (103) 99 Room Air I&O- Last 24 Hours up to 6 AM 10/19/16 05:59 Intake Total 2040 ml Output Total 3800 ml Balance -1760 ml Laboratory Data 24H LABS Laboratory Tests 2 10/19/16 05:11: Anion Gap 8, Glomerular Filtration Rate > 60.0, Blood Urea Nitrogen 3L, Creatinine 0.47L, Sodium Level 145, Potassium Level 4.1, Chloride Level 109H, Carbon Dioxide Level 28, Calcium Level 8.5, Magnesium Level 2.0, C-Reactive Protein, Quantitative 2.10H CBC/BMP Laboratory Tests 10/19/16 05:11 Red Blood Count 3.11 L, Mean Corpuscular Volume 95.2, Mean Corpuscular Hemoglobin 32.8, Mean Corpuscular Hemoglobin Concent 34.4, Red Cell Distribution Width 13.4, Calcium Level 8.5 Microbiology Microbiology 10/14/16 Blood Culture - Preliminary, Resulted No Growth after 72 hours. All specime... 10/14/16 Blood Culture - Preliminary, Resulted No Growth after 72 hours. All specime... 10/15/16 Anaerobic Culture - Final, Complete 10/16/16 MRSA Screen - Final, Complete 10/15/16 Gram Stain - Final, Complete 10/15/16 Abscess Culture - Final, Complete Staphylococcus Aureus NHUNG JAIMES October 19, 2016 12:32
[2016-10-19 14:00] VITALS: BP 125/80
--- NOTE | 2016-10-19 17:42 | REP ---
Procedure: PICC line insertion with Asiya-Mirna The procedure was performed under the direct supervision of Dr. Vivar. The risks and benefits of the procedure were explained to the patient and informed consent was obtained. The right basilic vein was localized using ultrasound guidance. The skin was prepped and draped in a sterile fashion. 2% lidocaine was used as a local anesthetic. Using ultrasound guidance the basilic vein was cannulated and a 0.018 guidewire was inserted and advanced to the SVC using fluoroscopic guidance. The needle was removed and a 4.5 Nauruan dilator and peel-away sheath was inserted over the guide wire. A 4.5 [place]auruan single lumen catheter was cut to length of 41 cm. The dilator was removed and the catheter was inserted over the guide wire with the tip ending in the SVC. The peel-away sheath was removed and the catheter was flushed with heparinized saline as per Hospital protocol. The catheter was affixed to the skin and a sterile dressing was applied. The the patient tolerated the procedure well and there were no immediate complications. 0.2 minutes of fluoro time was utilized for this procedure. Reviewed by JENNIFER Mooney 10/16/2016 05:07 PSigned by Maco Vivar MD 10/19/2016 05:33 P
[2016-10-19 18:00] VITALS: BP 152/94
[2016-10-19] MEDS: fentaNYL 50 MCG/HR PATCH TD SCH (21:11)
[2016-10-19] MEDS: FENTANYL REMOVAL DOCUMENTATION MISC XX SCH (21:11)
[2016-10-19] MEDS: CETIRIZINE (ZyrTEC) 10 MG TAB PO SCH (21:14)
[2016-10-19] MEDS: SENNA 8.6 MG TAB (SENOKOT) PO SCH (21:14)
[2016-10-19] MEDS: LISINOPRIL 20 MG TAB PO SCH (21:14)
[2016-10-19] MEDS: MIRALAX *UNIT DOSE* 17GM PACKET PO SCH (21:18)
[2016-10-19 22:00] VITALS: BP 132/85
--- NOTE | 2016-10-19 22:49 | IPN ---
DATE: 10/19/2016 Lizeth seems to be doing a little better, although she continues to have fever up to 100.6, significant back pain with muscle spasm. This afternoon, temperature was 99.1, pulse 93, respirations 17, blood pressure 152/94, oxygen saturation 99% on room air. Heart: Normal S1, S2 with no murmurs, rubs or gallops. Lungs are clear. No wheezes, rales or rhonchi. Abdomen is soft, nontender. Back: Significant tenderness with minimal palpation with still bulging of the upper incision area and the lower incisional area with area of redness. There is serosanguineous drainage on the dressing. LABORATORY DATA: White count is down to 6, hemoglobin 10.2, hematocrit 29.6, platelets 354. Sodium 145, potassium 4.1, chloride 109, bicarbonate 28, BUN 3, creatinine 0.47, glucose 87, calcium 8.5, magnesium 2, CRP is down to 2.1 from 14. Wound culture was positive for methicillin-sensitive Staphylococcus aureus (MSSA). Anaerobic culture was negative. Blood cultures, two sets, drawn on 10/14/2016 were negative. 10/16/2016 Methicillin-resistant Staphylococcus aureus (MRSA) screen was negative. This is the third MRSA screen that have been negative in the past 3 months. IMPRESSION: 1. Staphylococcus aureus abscess weeks with recurrent infection inspite of 4 weeks IV atbx The patient had interventional radiology drain the abscess, but this seems to be partial drainage she continues with fever , CRP is better. The back pain has slightly improved as well, but I am concerned there is another loculation that will need to be drained. She is on intravenous (IV) cefazolin plus rifampin, tolerating well. 2. History of MRSA infection over 20 years ago. The patient had three negative MRSA screens and will be discontinued from contact isolation. 3. Herpes oralis healing lesion. The patient has been on Valtrex 1 gram three times a day, which is a very high dose for her oral herpes. The dose is 500 mg twice a day and, therefore, this will be discontinued after 4 days. PLAN: Case has been discussed with Dr. Biggs who agrees on obtaining a followup MRI to look for any further loculated abscess that needs drainage, whether with interventional radiology or intraoperatively will be decided after MRI done tomorrow. Discontinue Valtrex. MTDD
[2016-10-20 02:00] VITALS: BP 132/83
[2016-10-20] MEDS: HYDROmorphone 2 MG TAB PO PRN ×3 (03:24→15:37)
[2016-10-20] MEDS: GABAPENTIN 300 MG CAP PO SCH ×3 (05:19→18:06)
[2016-10-20] MEDS: SODIUM CHLORIDE 0.9% INJ 10 ML SYR IV SCH ×2 (05:19→18:06)
[2016-10-20 05:39] LABS: MEAN CORPUSCULAR HEMOGLOBIN 31.5 pg (27.0-33.0); MEAN CORPUSCULAR HGB CONC 32.1 g/dl (32.0-36.5); MEAN CORPUSCULAR VOLUME 97.9 fl (80.0-96.0); RED CELL DISTRIBUTION WIDTH 13.5 % (11.5-14.5); WHITE BLOOD COUNT 6.2 K/mm3 (4.0-10.0)
[2016-10-20] MEDS: BACLOFEN 10 MG TAB PO SCH ×3 (05:52→18:05)
[2016-10-20] MEDS: ACETAMINOPHEN TAB 650MG DOSE (2X325MG) PO PRN ×3 (05:53→22:16)
[2016-10-20 06:00] VITALS: BP 116/77
[2016-10-20 06:00] LABS: ANION GAP 8 MEQ/L (8-16); BLOOD UREA NITROGEN 4 MG/DL (7-18); CALCIUM LEVEL 9.3 MG/DL (8.5-10.1); CARBON DIOXIDE LEVEL 26 MEQ/L (21-32); CHLORIDE LEVEL 108 MEQ/L (98-107); CREATININE FOR GFR 0.52 MG/DL (0.55-1.02); GLOMERULAR FILTRATION RATE > 60.0 (>51); GLUCOSE, FASTING 93 MG/DL (70-105); MAGNESIUM LEVEL 2.1 MG/DL (1.8-2.4); POTASSIUM SERUM 4.3 MEQ/L (3.5-5.1); SODIUM LEVEL 142 MEQ/L (136-145)
[2016-10-20] MEDS: FENTANYL REMOVAL DOCUMENTATION MISC XX SCH (08:14)
[2016-10-20] MEDS: SODIUM CHLORIDE 0.9% INJ 10 ML SYR IV PRN ×2 (09:12→21:17)
[2016-10-20] MEDS: fentaNYL 50 MCG/HR PATCH TD SCH (09:45)
[2016-10-20 10:00] VITALS: BP 113/80
--- NOTE | 2016-10-20 10:32 | REP ---
MR LUMBAR SPINE WITHOUT AND WITH CONTRAST: HISTORY: Infection. CONTRAST: ProHance 9.8 mL. COMPARISON: 10/14/2016. Decreased signal intensity on T2-weighted images is present in the L4-5 intervertebral disc. The disc is decreased in height. These findings are consistent with disc degeneration. There is no disc bulge or herniation at the L1-2 and L2-3 levels. The nerves exit the neural foramina without compression. A diffuse disc bulge is present at the L3-4 level. There is minimal compression of the thecal sac. The L3 nerves exit the neural foramina without compression. A laminectomy defect is present. A small amount of enhancing granulation tissue is present at the laminectomy site. A fluid collection is present at the laminectomy site. The fluid collection measures 2.4 cm in transverse by 2.5 cm in AP by 4.9 cm in cephalocaudal dimensions and is increased in size compared to the previous study. The fluid collection extends from the level of the L2-3 intervertebral disc to the L4 vertebral body. A second fluid collection is present in the overlying posterior subcutaneous tissue. This appears to be communicate with the fluid collection present at the laminectomy site. The fluid collection measures 4.9 cm in transverse by 1.6 cm in AP by 4 cm in cephalocaudal dimensions and is decreased in size compared to the previous study. A diffuse disc bulge is present at the L4-5 level. There is minimal compression of the thecal sac. There is hypertrophy of the posterior articulating facets. The L4 nerves exit the neural foramina without compression. A left laminectomy defect is present. A small amount of enhancing granulation tissue is present at the laminectomy site and in the left lateral aspect of the spinal canal. The granulation tissue involves the left L5 nerve. A fluid collection is present at the laminectomy site. The fluid collection measures 1.8 cm in transverse by 3.2 cm in AP by 4.1 cm in cephalocaudal dimensions and is unchanged in size compared to the previous study. The fluid collection extends from the level of the L4 vertebral body to L5. A second fluid collection is present in the overlying posterior subcutaneous tissue. The fluid collection measures 2.8 cm in transverse by 1.1 cm in AP by 5.2 cm in cephalocaudal dimensions and is an decreased in size compared to the previous study. A diffuse disc bulge is present at the L5-S1 level. There is minimal compression of the thecal sac. There is hypertrophy of the posterior articulating facets. The L5 nerves exit the neural foramina without compression. The conus medullaris is normal in appearance terminating at the level of the L1-2 intervertebral disc. Normal signal intensity is present in the lumbar vertebral bodies. IMPRESSION: 1. Diffuse disc bulges at the L3-4 through L5-S1 levels with minimal thecal sac compression. 2. The patient is status post L3-4 and a left L4-5 laminectomy. Fluid collections are present at the laminectomy sites. The fluid collection at the a laminectomy site at the L3-4 level appears to communicate with a superficial fluid collection in the overlying posterior subcutaneous tissue. This fluid collection is increased in size compared to the previous study. The superficial fluid collection is decreased in size. A fluid collection is present at the laminectomy site at the L4-5 level. This is unchanged in size compared to the previous study. A second fluid collection is present in the superficial posterior subcutaneous soft tissue. This fluid collection is decreased in size compared to the previous study. Signed by Kushal Browning MD 10/20/2016 10:56 A
--- NOTE | 2016-10-20 13:05 | IPNPDOC ---
Date Seen The patient was seen on 10/20/16. Progress Note SUBJECTIVE: Patient is a 55-year-old with a history of chronic low back pain s/ p lumbar laminectomy L3-4 and L4-5. Headache present mainly located behind her L eye. Headache is constant and states it feels different this time. She reports a history of cluster headaches. Back pain is rated 7/10. She states it is tolerable. Lying on the MRI table made it slightly worse. Nursing reports small amount of drainage on bandage this morning. She is eating and drinking well. States she slept on her back last night. States this is the first time she slept on her back since beginning of August. Otherwise, no new concerns for today. OBJECTIVE PHYSICAL EXAMINATION: VITAL SIGNS: Please see below. GENERAL: Appears to be doing well. Does not appear to be acute distress. Alert and orientated. Skin: mild amount of drainage on bandage. Small patchy regions of mild erythema at lateral wound edge posteriorly, otherwise no significant erythema. No active drainage. Mild amount of inflammation surrounding incision. Moderate amount of tenderness around incision. Neuro: No new focal deficits noted on exam. LABORATORY DATA: Please see below. MICROBIOLOGY: Please see below. IMAGING: MRI lumbar 10/20/16. 1. Diffuse disc bulges at the L3-4 through L5-S1 levels with minimal thecal sac compression. 2. The patient is status post L3-4 and a left L4-5 laminectomy. Fluid collections are present at the laminectomy sites. The fluid collection at the a laminectomy site at the L3-4 level appears to communicate with a superficial fluid collection in the overlying posterior subcutaneous tissue. This fluid collection is increased in size compared to the previous study. The superficial fluid collection is decreased in size. A fluid collection is present at the laminectomy site at the L4-5 level. This is unchanged in size compared to the previous study. A second fluid collection is present in the superficial posterior subcutaneous soft tissue. This fluid collection is decreased in size compared to the previous study. ASSESSMENT AND PLAN: This is a 55-year-old female with a history of chronic low back pain s/p lumbar laminectomy L3-4 and L4-5. Plan and management per Dr Biggs. Argelia Grayson PA-C VS, I&O, 24H, Fishbone Vital Signs/I&O Vital Signs Date Time Temp Pulse Resp B/P (MAP) Pulse Ox O2 Delivery O2 Flow Rate FiO2 10/20/16 10:15 18 10/20/16 10:00 97.9 85 113/80 (91) 97 Room Air I&O- Last 24 Hours up to 6 AM 10/20/16 06:00 Intake Total 2285 ml Output Total 3475 ml Balance -1190 ml Laboratory Data 24H LABS Laboratory Tests 2 10/20/16 05:22: Anion Gap 8, Glomerular Filtration Rate > 60.0, Blood Urea Nitrogen 4L, Creatinine 0.52L, Sodium Level 142, Potassium Level 4.3, Chloride Level 108H, Carbon Dioxide Level 26, Calcium Level 9.3, Magnesium Level 2.1, C-Reactive Protein, Quantitative 1.85H CBC/BMP Laboratory Tests 10/20/16 05:22 Red Blood Count 3.57 L, Mean Corpuscular Volume 97.9 H, Mean Corpuscular Hemoglobin 31.5, Mean Corpuscular Hemoglobin Concent 32.1, Red Cell Distribution Width 13.5, Calcium Level 9.3 Microbiology Microbiology 10/14/16 Blood Culture - Final, Complete NO GROWTH AFTER 5 DAYS 10/14/16 Blood Culture - Final, Complete NO GROWTH AFTER 5 DAYS 10/15/16 Anaerobic Culture - Final, Complete 10/16/16 MRSA Screen - Final, Complete 10/15/16 Gram Stain - Final, Complete 10/15/16 Abscess Culture - Final, Complete Staphylococcus Aureus WIL GRAYSON PA-C October 20, 2016 12:54
[2016-10-20 14:00] VITALS: BP 116/75
[2016-10-20 18:00] VITALS: BP 137/84
--- NOTE | 2016-10-20 18:56 | IPN ---
DATE: 10/20/2016 Lizeth complains of increasing drainage in her back as well as a mild headache. She has not had a fever in the past 24 hours, which is good. White count is 6.2, hemoglobin 11.2, hematocrit 35, platelets 422. Sodium 142, potassium 4.3, chloride 108, bicarbonate 26, BUN 4, creatinine 0.52, glucose 9.3, calcium 2.1, CRP is down to 1.85. Culture from the back on 10/15/2016 was positive for methicillin-sensitive Staphylococcus aureus (MSSA). Nasal culture was negative for methicillin-resistant Staphylococcus aureus (MRSA) and blood cultures were negative. MRI done on 10/20/[address] Browning. He feels that the fluid collections are present at the laminectomy site at L3-4 and L4-L5, appears to communicate with a superficial collection in the overlying posterior subcutaneous tissue. The fluid collection in the subcutaneous tissue have decreased in size but the deeper fluid collections have increased in size, especially at L3-L4 and Dr. Browning does not see any inflammation around them and he believes these are cerebrospinal fluid (CSF) leaks. IMPRESSION: 1. Methicillin-sensitive Staphylococcus aureus (MSSA) postoperative wound infection, on IV cefazolin and rifampin with normal white count, decreasing C-reactive protein (CRP) and finally afebrile for 24 hours. That has improved. 2. CSF leak has worsened and this needs surgical intervention. This could not be repaired by interventional radiology. The case has been discussed with Dr. Browning and Kameron. I have also discussed the case with Dr. Biggs, who will be discussing findings with the patient and surgical treatment. PLAN: Continue IV cefazolin with rifampin for a total of 6 weeks. The patient will need to go back to the operating room for CSF leak.
[2016-10-20] MEDS: SENNA 8.6 MG TAB (SENOKOT) PO SCH (21:15)
[2016-10-20] MEDS: CETIRIZINE (ZyrTEC) 10 MG TAB PO SCH (21:16)
[2016-10-20] MEDS: LISINOPRIL 20 MG TAB PO SCH (21:16)
[2016-10-20] MEDS: MIRALAX *UNIT DOSE* 17GM PACKET PO SCH (21:16)
[2016-10-20 22:00] VITALS: BP 118/72
[2016-10-21] MEDS: BACLOFEN 10 MG TAB PO SCH ×5 (00:26→23:23)
[2016-10-21] MEDS: GABAPENTIN 300 MG CAP PO SCH ×5 (00:26→23:23)
[2016-10-21 02:00] VITALS: BP 124/77
[2016-10-21] MEDS: HYDROmorphone 2 MG TAB PO PRN ×3 (03:10→15:41)
[2016-10-21] MEDS: SODIUM CHLORIDE 0.9% INJ 10 ML SYR IV SCH ×2 (05:59→17:44)
[2016-10-21 06:00] VITALS: BP 125/88
[2016-10-21 06:28] LABS: MEAN CORPUSCULAR VOLUME 97.1 fl (80.0-96.0); RED CELL DISTRIBUTION WIDTH 13.9 % (11.5-14.5); WHITE BLOOD COUNT 5.2 K/mm3 (4.0-10.0)
[2016-10-21 06:44] LABS: ANION GAP 7 MEQ/L (8-16); BLOOD UREA NITROGEN 5 MG/DL (7-18); CALCIUM LEVEL 8.5 MG/DL (8.5-10.1); CARBON DIOXIDE LEVEL 28 MEQ/L (21-32); CHLORIDE LEVEL 109 MEQ/L (98-107); CREATININE FOR GFR 0.52 MG/DL (0.55-1.02); GLOMERULAR FILTRATION RATE > 60.0 (>51); GLUCOSE, FASTING 94 MG/DL (70-105); POTASSIUM SERUM 4.3 MEQ/L (3.5-5.1); SODIUM LEVEL 144 MEQ/L (136-145)
[2016-10-21 10:00] VITALS: BP 117/67
[2016-10-21] MEDS: ACETAMINOPHEN TAB 650MG DOSE (2X325MG) PO PRN ×2 (10:44→20:26)
[2016-10-21 14:00] VITALS: BP 104/72
--- NOTE | 2016-10-21 16:46 | IPNPDOC ---
Date Seen The patient was seen on 10/21/16. Progress Note SUBJECTIVE: Patient is a 55-year-old with a history of chronic low back pain s/ p lumbar laminectomy L3-4 and L4-5. Her headache and back pain are tolerable. She is eating and drinking well. Otherwise, no new concerns for today. OBJECTIVE PHYSICAL EXAMINATION: VITAL SIGNS: Please see below. GENERAL: Appears to be doing well. She is smiling and does not appear to be acute distress. Alert and orientated. Skin: No discharge present on bandage, this was changed this morning. No surrounding erythema outside bandage. Moderate amount of tenderness around incision. Neuro: No new focal deficits noted on exam. LABORATORY DATA: Please see below. MICROBIOLOGY: Please see below. IMAGING: MRI lumbar 10/20/16. 1. Diffuse disc bulges at the L3-4 through L5-S1 levels with minimal thecal sac compression. 2. The patient is status post L3-4 and a left L4-5 laminectomy. Fluid collections are present at the laminectomy sites. The fluid collection at the a laminectomy site at the L3-4 level appears to communicate with a superficial fluid collection in the overlying posterior subcutaneous tissue. This fluid collection is increased in size compared to the previous study. The superficial fluid collection is decreased in size. A fluid collection is present at the laminectomy site at the L4-5 level. This is unchanged in size compared to the previous study. A second fluid collection is present in the superficial posterior subcutaneous soft tissue. This fluid collection is decreased in size compared to the previous study. ASSESSMENT AND PLAN: This is a 55-year-old female with a history of chronic low back pain s/p lumbar laminectomy L3-4 and L4-5. Noted the discussion from Dr Forbes, suspected CSF leak. Appears she will require another surgery to repair CSF leak. Plan and management per Dr Biggs. Argelia Grayson PA-C VS, I&O, 24H, Reddy Vital Signs/I&O Vital Signs Date Time Temp Pulse Resp B/P (MAP) Pulse Ox O2 Delivery O2 Flow Rate FiO2 10/21/16 16:12 18 Room Air 10/21/16 14:00 97.3 80 104/72 (83) 97 I&O- Last 24 Hours up to 6 AM 10/21/16 06:00 Intake Total 2820 ml Output Total 2900 ml Balance -80 ml Laboratory Data 24H LABS Laboratory Tests 2 10/21/16 05:58: Anion Gap 7L, Glomerular Filtration Rate > 60.0, Blood Urea Nitrogen 5L, Creatinine 0.52L, Sodium Level 144, Potassium Level 4.3, Chloride Level 109H, Carbon Dioxide Level 28, Calcium Level 8.5, Magnesium Level 2.0, C-Reactive Protein, Quantitative 1.08H CBC/BMP Laboratory Tests 10/21/16 05:58 Red Blood Count 3.33 L, Mean Corpuscular Volume 97.1 H, Mean Corpuscular Hemoglobin 32.0, Mean Corpuscular Hemoglobin Concent 33.0, Red Cell Distribution Width 13.9, Calcium Level 8.5 Microbiology Microbiology 10/14/16 Blood Culture - Final, Complete NO GROWTH AFTER 5 DAYS 10/14/16 Blood Culture - Final, Complete NO GROWTH AFTER 5 DAYS 10/15/16 Anaerobic Culture - Final, Complete 10/16/16 MRSA Screen - Final, Complete 10/15/16 Gram Stain - Final, Complete 10/15/16 Abscess Culture - Final, Complete Staphylococcus Aureus WIL GRAYSON PA-C October 21, 2016 16:46
[2016-10-21 18:00] VITALS: BP 146/80
[2016-10-21] MEDS: MIRALAX *UNIT DOSE* 17GM PACKET PO SCH (20:18)
[2016-10-21] MEDS: CETIRIZINE (ZyrTEC) 10 MG TAB PO SCH (20:18)
[2016-10-21] MEDS: SENNA 8.6 MG TAB (SENOKOT) PO SCH (20:19)
[2016-10-21] MEDS: LISINOPRIL 20 MG TAB PO SCH (20:21)
[2016-10-21] MEDS: SODIUM CHLORIDE 0.9% INJ 10 ML SYR IV PRN (20:27)
[2016-10-21 22:00] VITALS: BP 133/78
[2016-10-22 02:00] VITALS: BP 123/83
[2016-10-22] MEDS: HYDROmorphone 2 MG TAB PO PRN ×4 (04:07→23:14)
[2016-10-22] MEDS: GABAPENTIN 300 MG CAP PO SCH ×4 (05:11→23:12)
[2016-10-22] MEDS: BACLOFEN 10 MG TAB PO SCH ×4 (05:11→23:12)
[2016-10-22] MEDS: SODIUM CHLORIDE 0.9% INJ 10 ML SYR IV SCH ×2 (05:11→17:45)
[2016-10-22 06:00] VITALS: BP 120/79
[2016-10-22 10:00] VITALS: BP 134/83
--- NOTE | 2016-10-22 10:29 | IPN ---
DATE: 10/22/2016 Ms. Salas seems to be doing better today. She has had much less drainage and she has been laying in bed much more during the day. Her last temperature was on 10/19 at 100.6, but no fever for the past 36 hours. She has no nausea, vomiting or diarrhea. She has a minimal headache. She still has significant back pain, although seems to have improved as well. Her white count is 5.2, hemoglobin 10.7, hematocrit 32.4, platelets 368. Sodium 144, potassium 4.3, chloride 104.9, bicarbonate 28, BUN 5, creatinine 0.5, glucose 94, calcium 8.5, magnesium 2, CRP 1.08. PHYSICAL EXAMINATION: On physical exam, temperature is 98.6, pulse 82, respirations 17, blood pressure 133/78, oxygen saturation 98% on room air. HEART: Normal S1, S2. No murmurs. LUNGS: Clear. No wheezes or rhonchi. ABDOMEN: Soft, nontender. No hepatosplenomegaly. EXTREMITIES: No edema. BACK: Swelling and erythema have definitely decreased. There is very minimal drainage on the Optifoam dressing, a very small dot measuring 1 cm for all day. IMPRESSION: 1. Postoperative wound infection recurrent with methicillin sensitive Staphylococcus aureus (MSSA). On IV cephazolin 2 grams every 8 hours and by mouth rifampin. 2. CSF leak, which will need repair. According to Dr. Browning, the deep collections are not infected. Did look more like CSF as there is no contrast gadolinium enhancement around them. PLAN: The patient supposedly is going back to the operating room for correction of CSF leak, possibly on Wednesday by Dr. Biggs.
[2016-10-22 14:00] VITALS: BP 129/75
--- NOTE | 2016-10-22 17:30 | IPN ---
DATE: 10/22/2016 Lizeth is doing well. She has had no fever in the past 3 days. She has very minimal headache. No nausea, vomiting or diarrhea. No abdominal pain. Her low back pain has improved. She is scheduled to go to the operating room tomorrow for exploration of the wound. I did discuss the case with Dr. Biggs. He does not think that there is a cerebrospinal fluid (CSF) leak. He thinks he will explore the wound and just clean the infection. The patient did have two episodes where there was a large amount of serous fluid on the dressing. Yesterday morning the dressing was soaked and the day before, nothing today. LABORATORY DATA: White count is 5.2, hemoglobin 10.7, hematocrit 32.4, platelets 368. Sodium 144, potassium 4.3, chloride 109, bicarbonate 28, magnesium 2 and CRP 1.08. Temperature is 99.1, pulse 103, respirations 17, blood pressure 129/75. Oxygen saturation 98% on room air. Heart: Normal S1, S2 with no murmurs, rubs or gallops. Lungs are clear. No wheezes, rales or rhonchi. Abdomen is soft, nontender. Back: Swelling much decreased. There is very minimal drainage on the Optifoam on the bottom of the incision, about 1 cm in diameter on the Optifoam, serosanguineous drainage. IMPRESSION: 1. Postoperative wound infection, recurrent, with methicillin-sensitive Staphylococcus aureus (MSSA) after 4 weeks of intravenous (IV) antibiotic, currently on IV cefazolin and rifampin, doing well. 2. Degenerative disc disease with muscle spasm. Pain is better controlled with baclofen, gabapentin and hydromorphone. 3. History of CSF leak with a questionable persistent leak. According to Dr. Browning, he believes there is a CSF leak and the wound will be explored tomorrow. PLAN: Continue IV cefazolin and rifampin for a total of 6 weeks. The patient will be treated at least until November 25 with intravenous (IV) antibiotic. Peripherally inserted central catheter (PICC) line in place. Exploration of the wound in the morning
[2016-10-22] MEDS: ACETAMINOPHEN TAB 650MG DOSE (2X325MG) PO PRN ×2 (17:45→23:16)
[2016-10-22] MEDS: SENNA 8.6 MG TAB (SENOKOT) PO SCH (21:30)
[2016-10-22] MEDS: CETIRIZINE (ZyrTEC) 10 MG TAB PO SCH (21:30)
[2016-10-22] MEDS: MIRALAX *UNIT DOSE* 17GM PACKET PO SCH (21:30)
[2016-10-22] MEDS: LISINOPRIL 20 MG TAB PO SCH (21:31)
[2016-10-22 22:00] VITALS: BP 130/80
[2016-10-23 02:00] VITALS: BP 144/90
[2016-10-23] MEDS: BACLOFEN 10 MG TAB PO SCH ×2 (05:24→12:00)
[2016-10-23] MEDS: HYDROmorphone 2 MG TAB PO PRN (05:25)
[2016-10-23] MEDS: GABAPENTIN 300 MG CAP PO SCH ×2 (05:25→12:00)
[2016-10-23] MEDS: SODIUM CHLORIDE 0.9% INJ 10 ML SYR IV SCH (05:25)
[2016-10-23 05:42] LABS: MEAN CORPUSCULAR HEMOGLOBIN 31.6 pg (27.0-33.0); MEAN CORPUSCULAR HGB CONC 32.8 g/dl (32.0-36.5); MEAN CORPUSCULAR VOLUME 96.5 fl (80.0-96.0); RED CELL DISTRIBUTION WIDTH 14.1 % (11.5-14.5); WHITE BLOOD COUNT 4.6 K/mm3 (4.0-10.0)
[2016-10-23 06:00] VITALS: BP 133/88
[2016-10-23 06:10] LABS: ALBUMIN/GLOBULIN RATIO 0.88 (1.00-1.93); ALKALINE PHOSPHATASE 79 U/L (45-117); ALT/SGPT 17 U/L (12-78); ANION GAP 7 MEQ/L (8-16); AST/SGOT 34 U/L (15-37); BILIRUBIN,TOTAL 0.3 MG/DL (0.2-1.0); BLOOD UREA NITROGEN 7 MG/DL (7-18); CALCIUM LEVEL 8.8 MG/DL (8.5-10.1); CARBON DIOXIDE LEVEL 29 MEQ/L (21-32); CHLORIDE LEVEL 107 MEQ/L (98-107); CREATININE FOR GFR 0.65 MG/DL (0.55-1.02); GLOMERULAR FILTRATION RATE > 60.0 (>51); GLUCOSE, FASTING 88 MG/DL (70-105); POTASSIUM SERUM 4.4 MEQ/L (3.5-5.1); SODIUM LEVEL 143 MEQ/L (136-145); TOTAL PROTEIN 6.4 GM/DL (6.4-8.2)
[2016-10-23 08:24] LABS: MAGNESIUM LEVEL 2.2 MG/DL (1.8-2.4)
[2016-10-23] MEDS: ACETAMINOPHEN TAB 650MG DOSE (2X325MG) PO PRN (08:46)
[2016-10-23] MEDS: fentaNYL 50 MCG/HR PATCH TD SCH (08:52)
[2016-10-23] MEDS ORDERED: FENTANYL REMOVAL DOCUMENTATION MISC XX SCH (09:00)
[2016-10-23 10:00] VITALS: BP 132/89
[2016-10-23] MEDS ORDERED: HYDROmorphone HCL 1 MG/ML SYRINGE (J1170) IV ONE (12:45)
[2016-10-23 14:00] VITALS: BP 123/80
--- NOTE | 2016-10-23 14:29 | IPN ---
DATE: 10/23/2016 Lizeth seems to be doing fairly well. She was frustrated, as yesterday she had a lot of drainage at night after we had left. She states the pain is better. She has had no fever or chills. No nausea, vomiting or diarrhea. She is going to the operating room (OR) today for exploration of the wound. White count is 4.6, hemoglobin 10.8, hematocrit 33, platelets 380. Sodium 143, potassium 4.4, chloride 107, bicarb 29, AST and ALT are normal. Albumin 3. IMPRESSION: 1. Postoperative wound infection with methicillin-sensitive Staphylococcus aureus (MSSA) on IV cefazolin and rifampin. 2. History of cerebrospinal fluid (CSF) leak with possible recurrent leak. The wound is being explored today. The patient states she had a large amount of drainage last night, but I did not see anything on the dressing today. PLAN: Continue IV cefazolin and rifampin. The patient will be treated with 6 weeks of IV antibiotics. Hopefully, could discharge her home by early next week. End of treatment would be 11/25/2016.
[2016-10-23] MEDS ORDERED: ACETAMINOPHEN 650 MG SUPP PR ONE (15:15)
[2016-10-23] MEDS ORDERED: THROMBIN SOLN 20,000 UNITS KIT As Ordered ONE (16:37)
[2016-10-23] MEDS ORDERED: methylPREDNISolone SUSP 40 MG/ML (DEPO-medrol) VIAL (J1030) As Ordered ONE (16:37)
[2016-10-23] MEDS ORDERED: BACITRACIN PWD 50,000 UNITS VIAL As Ordered ONE (16:37)
[2016-10-23] MEDS ORDERED: LIDOCAINE 2% INJ 100 MG/5 ML SDV (FOR ANES.) As Ordered ONE (16:57)
[2016-10-23] MEDS ORDERED: MIDAZOLAM INJ 2 MG/2 ML VIAL (J2250) As Ordered ONE (16:58)
[2016-10-23] MEDS ORDERED: fentaNYL 250 MCG/5 ML INJECTION (J3010) As Ordered ONE (16:58)
[2016-10-23] MEDS ORDERED: ONDANSETRON 4MG/2ML VIAL (J2405) As Ordered ONE (17:03)
[2016-10-23] MEDS ORDERED: ROCURONIUM BROMIDE 50 MG/5 ML VIAL As Ordered ONE (17:03)
[2016-10-23] MEDS ORDERED: dexameTHASONE 4 MG/ML 1ML VIAL (J1100) As Ordered ONE (17:08)
[2016-10-23] MEDS ORDERED: PHENYLephrine HCL 500 MCG/5 ML (100MCG/ML) SYRINGE (J2370) As Ordered ONE (18:36)
[2016-10-23] MEDS ORDERED: ePHEDrine SULFATE 25 MG/5 ML(5MG/ML) SYRINGE As Ordered ONE (18:36)
[2016-10-23] MEDS ORDERED: GLYCOPYRROLATE INJ 0.2 MG/ML 2 ML VIAL As Ordered ONE (18:46)
[2016-10-23] MEDS ORDERED: NEOSTIGMINE 1MG/ML 5 ML SYRINGE (J2710) As Ordered ONE (18:46)
[2016-10-23] MEDS ORDERED: ESMOLOL INJ 100MG/10ML VIAL As Ordered ONE (19:24)
[2016-10-23] MEDS ORDERED: LIDOCAINE 1% SDV INJ 30 ML VIAL As Ordered ONE (19:35)
[2016-10-23] MEDS ORDERED: HYDROmorphone HCL 2 MG/ML 1ML VIAL (J1170) As Ordered ONE (19:42)
[2016-10-23] MEDS ORDERED: fentaNYL 100 MCG/2 ML INJECTION (J3010) As Ordered ONE (20:13)
[2016-10-23] MEDS ORDERED: ONDANSETRON 4MG/2ML VIAL (J2405) IV PRN ×2 (20:15→23:15)
[2016-10-23] MEDS ORDERED: LR 1,000 ML IV SCH (20:15)
[2016-10-23] MEDS: fentaNYL 100 MCG/2 ML INJECTION (J3010) IV PRN ×4 (20:15→20:30)
[2016-10-23] MEDS ORDERED: KCL 20MEQ IN D5/0.45NS 1000ML 1,000 ML IV SCH (20:30)
[2016-10-23] MEDS ORDERED: HYDROmorphone HCL 1 MG/ML SYRINGE (J1170) As Ordered ONE ×2 (20:35→20:50)
[2016-10-23] MEDS: HYDROmorphone HCL 1 MG/ML SYRINGE (J1170) IV PRN ×5 (20:35→21:02)
[2016-10-23 21:55] VITALS: BP 145/75
[2016-10-23 22:40] VITALS: BP 108/66
[2016-10-24] VITALS (9 sets, daily range): BP systolic 96–137; BP diastolic 50–88
[2016-10-24] MEDS: BACLOFEN 10 MG TAB PO SCH ×5 (00:50→23:48)
[2016-10-24] MEDS: MIRALAX *UNIT DOSE* 17GM PACKET PO SCH ×2 (00:50→20:55)
[2016-10-24] MEDS: GABAPENTIN 300 MG CAP PO SCH ×5 (00:51→23:48)
[2016-10-24] MEDS: SENNA 8.6 MG TAB (SENOKOT) PO SCH ×2 (00:51→20:55)
[2016-10-24] MEDS: CETIRIZINE (ZyrTEC) 10 MG TAB PO SCH ×2 (00:51→20:56)
[2016-10-24] MEDS: LISINOPRIL 20 MG TAB PO SCH ×2 (00:53→21:00)
[2016-10-24] MEDS: SODIUM CHLORIDE 0.9% INJ 10 ML SYR IV SCH ×2 (05:18→18:39)
[2016-10-24] MEDS: HYDROmorphone 2 MG TAB PO PRN ×4 (05:40→23:57)
[2016-10-24] MEDS: ACETAMINOPHEN TAB 650MG DOSE (2X325MG) PO PRN ×2 (11:31→20:56)
--- NOTE | 2016-10-24 13:52 | RO ---
DATE OF PROCEDURE: 10/23/2016 PREOPERATIVE DIAGNOSIS: Intermittent wound drainage from lumbar laminectomy incision. POSTOPERATIVE DIAGNOSIS: Intermittent wound drainage from lumbar laminectomy incision with wound seroma. PROCEDURE: Lumbar laminectomy wound exploration. SURGEON: Dr. Derik Biggs [employer] MANAGER: ANESTHESIA: General. FINDINGS: Patient had an early wound exploration done on 09/26/2016. Patient did well, although for the past several days she noticed intermittent drainage from incision, though denied any postural headaches or any radicular symptoms. She said that her low back pain is at her baseline. Initially it appeared that the drainage was infected and she was treated with antibiotics, which made her afebrile and her labs became normal. She continues to report intermittent drainage. However, the dressing would be generally dry when I would make rounds. Dr. Forbes felt that she does have intermittent drainage. Patient was aware of all options, risks, scope, expected outcome, sequelae or risks of salvage wound excoriation. She understood no guarantees of any kind could be given and that the risk surgery include but not limited to , paralysis, coma, spinal fluid leakage or worsening of the same as she has, any worsening of wound infection or if she still has any loss of vital bodily functions, failure of surgery, continued need for multiple surgeries, pulmonary embolism (PE), deep venous thrombosis (DVT), myocardial infarction (PR), and/or any catastrophic sequel. She wished to proceed with surgery. After informed consent, after all matters pertaining for surgery and followup care have been discussed for the last several days and again today, she wished to proceed with surgery. DESCRIPTION OF PROCEDURE: Once in the operating room, general endotracheal anesthesia was given by the anesthesia service. The area of surgery was prepped and draped in the usual sterile fashion. Her dry dressing as well as the wound pictures were taken. The previous sutures was removed, and after adequate prepped and draped, the previous wound was opened. There was a seroma collection under the skin, which was cultured. There was mildly granulation tissue in the subcutaneous layers. Lumbar dorsal fascia was opened and the subcutaneous wound was in communication with the epidural fluid. There was no active CSF leak. Multiple Valsalva maneuvers were done by the anesthesia service and no active CSF leak was identified. However, she may still have a small leak or the leak will be intermittent. Nonetheless, the fluid was sent for beta-2 transferrin protein. All superficial layers and deep layers of the wound were cultured and wound closed in anatomic layers. Prevena suction dressing was applied. Blood loss was about 30 mL or less. Patient tolerated the procedure well and was transferred to recovery room in stable condition. I text the operative findings to her .
[2016-10-25 02:00] VITALS: BP 133/79
[2016-10-25] MEDS: SODIUM CHLORIDE 0.9% INJ 10 ML SYR IV SCH ×2 (05:03→18:46)
[2016-10-25] MEDS: GABAPENTIN 300 MG CAP PO SCH ×4 (05:03→23:15)
[2016-10-25] MEDS: BACLOFEN 10 MG TAB PO SCH ×4 (05:03→23:15)
[2016-10-25 06:00] VITALS: BP 130/85
[2016-10-25] MEDS: HYDROmorphone 2 MG TAB PO PRN ×3 (06:31→18:47)
--- NOTE | 2016-10-25 07:27 | REP ---
CT LUMBAR SPINE WITHOUT CONTRAST: HISTORY: Followup. COMPARISON: 10/05/2016 The fluid and/or granulation tissue seen at the L3-4 and L4-5 laminectomy regions now has air density within it, which represents a change from the prior exam. The soft tissue density itself does not appear to have gotten larger. The air density does abut the dorsal thecal sac. The appearance of this is much the same as on the CT of 09/28/2016, however, not as excessive. There are no other significant changes from the prior exam of 10/05/2016. IMPRESSION: Recurrence of abnormal air density in the soft tissues as described above suspicious for gas reducing bacterial wound infection. Signed by Brad Mendoza DO 10/25/2016 09:54 A
[2016-10-25 10:00] VITALS: BP 123/87
[2016-10-25 14:00] VITALS: BP 131/73
[2016-10-25 18:00] VITALS: BP 144/86
[2016-10-25] MEDS: LISINOPRIL 20 MG TAB PO SCH (21:47)
[2016-10-25] MEDS: SENNA 8.6 MG TAB (SENOKOT) PO SCH (21:48)
[2016-10-25] MEDS: CETIRIZINE (ZyrTEC) 10 MG TAB PO SCH (21:48)
[2016-10-25] MEDS: MIRALAX *UNIT DOSE* 17GM PACKET PO SCH (21:48)
[2016-10-25] MEDS: ACETAMINOPHEN TAB 650MG DOSE (2X325MG) PO PRN (21:50)
[2016-10-25 22:00] VITALS: BP 127/89
[2016-10-26] MEDS: HYDROmorphone 2 MG TAB PO PRN ×3 (00:50→19:50)
[2016-10-26] MEDS: SODIUM CHLORIDE 0.9% INJ 10 ML SYR IV PRN (00:50)
[2016-10-26] MEDS: ACETAMINOPHEN TAB 650MG DOSE (2X325MG) PO PRN ×3 (03:10→17:08)
[2016-10-26] MEDS: GABAPENTIN 300 MG CAP PO SCH ×4 (05:48→23:22)
[2016-10-26] MEDS: BACLOFEN 10 MG TAB PO SCH ×4 (05:49→23:22)
[2016-10-26] MEDS: SODIUM CHLORIDE 0.9% INJ 10 ML SYR IV SCH ×2 (05:49→17:07)
[2016-10-26 06:00] VITALS: BP 136/91
[2016-10-26 06:14] LABS: MEAN CORPUSCULAR HEMOGLOBIN 31.7 pg (27.0-33.0); MEAN CORPUSCULAR HGB CONC 31.8 g/dl (32.0-36.5); MEAN CORPUSCULAR VOLUME 99.7 fl (80.0-96.0); RED CELL DISTRIBUTION WIDTH 13.7 % (11.5-14.5); WHITE BLOOD COUNT 6.2 K/mm3 (4.0-10.0)
[2016-10-26 06:35] LABS: ANION GAP 10 MEQ/L (8-16); BLOOD UREA NITROGEN 9 MG/DL (7-18); CARBON DIOXIDE LEVEL 24 MEQ/L (21-32); CHLORIDE LEVEL 110 MEQ/L (98-107); GLOMERULAR FILTRATION RATE > 60.0 (>51); GLUCOSE, FASTING 98 MG/DL (70-105); POTASSIUM SERUM 3.7 MEQ/L (3.5-5.1); SODIUM LEVEL 144 MEQ/L (136-145)
[2016-10-26] MEDS ORDERED: FENTANYL REMOVAL DOCUMENTATION MISC XX SCH (09:00)
[2016-10-26] MEDS: fentaNYL 50 MCG/HR PATCH TOP SCH (09:54)
[2016-10-26 10:00] VITALS: BP 131/87
[2016-10-26 14:00] VITALS: BP 111/59
[2016-10-26 18:00] VITALS: BP 129/88
[2016-10-26] MEDS: LISINOPRIL 20 MG TAB PO SCH (20:37)
[2016-10-26] MEDS: CETIRIZINE (ZyrTEC) 10 MG TAB PO SCH (20:38)
[2016-10-26] MEDS: MIRALAX *UNIT DOSE* 17GM PACKET PO SCH (20:38)
[2016-10-26] MEDS: SENNA 8.6 MG TAB (SENOKOT) PO SCH (20:38)
[2016-10-26 22:00] VITALS: BP 129/79
[2016-10-27] MEDS: SODIUM CHLORIDE 0.9% INJ 10 ML SYR IV PRN ×2 (01:25→23:25)
[2016-10-27 02:00] VITALS: BP 105/67
[2016-10-27] MEDS: HYDROmorphone 2 MG TAB PO PRN ×4 (03:10→21:29)
[2016-10-27 06:00] VITALS: BP 110/69
[2016-10-27] MEDS: BACLOFEN 10 MG TAB PO SCH ×4 (06:31→23:25)
[2016-10-27] MEDS: GABAPENTIN 300 MG CAP PO SCH ×4 (06:31→23:25)
[2016-10-27] MEDS: SODIUM CHLORIDE 0.9% INJ 10 ML SYR IV SCH ×2 (06:32→15:17)
--- NOTE | 2016-10-27 08:16 | IPN ---
DATE OF SERVICE: 10/26/2016 Lizeth seems to be doing fairly well postoperatively. She went to the operating room on 10/23/2016 and wound cultures were done from her back, two sets, aerobic and anaerobic were all negative. No cells and no organisms were seen. LABORATORY DATA White count is 6.2, hemoglobin 11.5, hematocrit 36, platelets 410. Sodium 144, potassium 3.7, chloride 110, bicarbonate 24, BUN 9, creatinine 0.6, glucose 98, calcium 9, beta-2 transferrin pending. Magnesium 1.9. PHYSICAL EXAMINATION: On physical exam, temperature is 98.2, pulse 86, respirations 18, blood pressure 129/88, oxygen sat 99% on room air. HEART: Normal S1, S2. No murmurs. LUNGS: Clear. No wheezes, rales or rhonchi. ABDOMEN: Soft, nontender. EXTREMITIES: No edema. BACK: Wound VAC in place. There is not much drainage in the container. IMPRESSION: Postoperative wound infection with methicillin sensitive Staphylococcus aureus (MSSA) that has had failed 4 weeks of IV antibiotic with recurrence. The patient has been on IV cefazolin since 10/15/2016 and rifampin. She is doing much better. There was some concern of CSF leak on MRI done on 10/20/2016 and therefore the patient went back to the operating room. Beta-2 transferrin has been sent but is still pending. PLAN Continue IV cefazolin 2 grams every 8 hours, along with oral rifampin with a start date of 10/15 for a total of 6 weeks. Anticipate discharging the patient on as her cannot pick her up on Wednesday. He has to go to [place] with his daughter. Case has been discussed with Dr. Biggs. Wound VAC will probably be removed on Wednesday. Consult [facility] for home IV antibiotics.
[2016-10-27 14:00] VITALS: BP 143/71
[2016-10-27] MEDS: ACETAMINOPHEN TAB 650MG DOSE (2X325MG) PO PRN ×2 (14:11→21:28)
[2016-10-27 18:00] VITALS: BP 129/74
[2016-10-27] MEDS: SENNA 8.6 MG TAB (SENOKOT) PO SCH (21:29)
[2016-10-27] MEDS: MIRALAX *UNIT DOSE* 17GM PACKET PO SCH (21:29)
[2016-10-27] MEDS: CETIRIZINE (ZyrTEC) 10 MG TAB PO SCH (21:29)
[2016-10-27] MEDS: LISINOPRIL 20 MG TAB PO SCH (21:29)
[2016-10-27 22:00] VITALS: BP 135/87
--- NOTE | 2016-10-27 22:39 | IPN ---
DATE: 10/27/2016 Lizeth is frustrated today. She noticed that there is increased swelling at the incision site, especially at the upper back. She does complain of more tenderness at this site. She has a mild headache. No nausea, vomiting or diarrhea. No fever or chills. Temperature is 98.5, maximum temperature (Tmax) today was 99.1, pulse 83, respirations 18, blood pressure 124/74, oxygen saturation 99% on room air. Heart: Normal S1, S2, with no murmurs. Lungs: Clear. No wheezes, rales, or rhonchi. Abdomen: Soft, nontender. Extremities: No edema. No calf tenderness. Back: Incision site has mild erythema on the upper aspect of the incision and there is definitely increased swelling with some tenderness. LABORATORY DATA: White count of 6.3, hemoglobin 11.5, hematocrit 36, platelets of 410, sodium 144, potassium 3.7, chloride 110, bicarbonate 24, BUN 9, creatinine 0.6, glucose 98, calcium 9, magnesium 1.9, Beta-2 transferrin is still pending. IMPRESSION: 1. Postoperative wound infection with methicillin-sensitive Staphylococcus aureus (MSSA). On IV cefazolin and oral rifampin doing well. 2. Increased swelling in the upper back incision site which is again concerning for a cerebrospinal fluid (CSF) leak as this has occurred over the past 24 hours. PLAN: Will discuss with neurosurgery. Beta-2 transferrin is pending. Depending on clinical improvement and whether the swelling persists or worsen, the patient may not be discharged on if the swelling persists.
[2016-10-28] MEDS: SODIUM CHLORIDE 0.9% INJ 10 ML SYR IV PRN ×3 (00:10→15:35)
[2016-10-28 02:00] VITALS: BP 139/87
[2016-10-28] MEDS: HYDROmorphone 2 MG TAB PO PRN ×3 (04:01→22:24)
[2016-10-28 06:00] VITALS: BP 128/82
[2016-10-28] MEDS: SODIUM CHLORIDE 0.9% INJ 10 ML SYR IV SCH ×2 (06:04→18:35)
[2016-10-28] MEDS: BACLOFEN 10 MG TAB PO SCH ×4 (06:04→23:39)
[2016-10-28] MEDS: GABAPENTIN 300 MG CAP PO SCH ×4 (06:04→23:39)
[2016-10-28] MEDS: ACETAMINOPHEN TAB 650MG DOSE (2X325MG) PO PRN ×2 (08:31→15:48)
[2016-10-28 10:00] VITALS: BP 152/82
[2016-10-28 14:00] VITALS: BP 151/98
[2016-10-28 18:00] VITALS: BP 118/78
[2016-10-28] MEDS: MIRALAX *UNIT DOSE* 17GM PACKET PO SCH (21:44)
[2016-10-28] MEDS: LISINOPRIL 20 MG TAB PO SCH (21:45)
[2016-10-28] MEDS: CETIRIZINE (ZyrTEC) 10 MG TAB PO SCH (21:45)
[2016-10-28] MEDS: SENNA 8.6 MG TAB (SENOKOT) PO SCH (21:45)
[2016-10-28 22:00] VITALS: BP 129/69
[2016-10-28] MEDS ORDERED: HYDROmorphone 2 MG TAB PO ONE (23:15)
[2016-10-29] MEDS: GABAPENTIN 300 MG CAP PO SCH ×4 (05:04→23:10)
[2016-10-29] MEDS: SODIUM CHLORIDE 0.9% INJ 10 ML SYR IV SCH ×2 (05:05→17:36)
[2016-10-29] MEDS: BACLOFEN 10 MG TAB PO SCH ×4 (05:05→23:10)
[2016-10-29 06:00] VITALS: BP 133/88
[2016-10-29 06:54] LABS: BASO % 0.6 % (0.0-1.0); EOS # 0.1 K/mm3 (0.0-0.50); EOS % 2.4 % (0.0-3.0); LARGE UNSTAINED CELL # 0.1 K/mm3 (0.0-0.4); LARGE UNSTAINED CELL % 1.7 % (0.0-4.0); LYMPH # 2.3 K/mm3 (1.5-4.5); LYMPH % 40.9 % (24.0-44.0); MEAN CORPUSCULAR HEMOGLOBIN 31.5 pg (27.0-33.0); MEAN CORPUSCULAR HGB CONC 32.3 g/dl (32.0-36.5); MEAN CORPUSCULAR VOLUME 97.6 fl (80.0-96.0); MONO # 0.3 K/mm3 (0.0-0.8); MONO % 5.5 % (0.0-5.0); NEUTROPHILS # 2.6 K/mm3 (1.8-7.7); NEUTROPHILS % 48.9 % (36.0-66.0); PLATELET COUNT, AUTOMATED 356 k/mm3 (150-450); RED CELL DISTRIBUTION WIDTH 13.9 % (11.5-14.5); WHITE BLOOD COUNT 5.3 K/mm3 (4.0-10.0)
[2016-10-29 09:04] LABS: ERYTHROCYTE SEDIMENTATION RATE 25 mm/hr (0-30)
[2016-10-29 10:00] VITALS: BP 136/91
--- NOTE | 2016-10-29 10:11 | IPNPDOC ---
Date Seen The patient was seen on 10/29/16. Progress Note SUBJECTIVE: S/p lumbar laminectomy wound exploration. POD=6. OBJECTIVE PHYSICAL EXAMINATION: VITAL SIGNS: Please see below. AVSS. There is a subq collection of fluid in the superior aspect of the incision. No active drainage is noted. No warmth or erythema. ASSESSMENT AND PLAN: Cont management per Dr Biggs. Dr Marv Grayson, RPA-C VS, I&O, 24H, Fishbone Vital Signs/I&O Vital Signs Date Time Temp Pulse Resp B/P (MAP) Pulse Ox O2 Delivery O2 Flow Rate FiO2 10/29/16 06:00 98.0 101 18 133/88 (103) 99 10/28/16 18:00 Room Air 10/24/16 03:45 2.0 I&O- Last 24 Hours up to 6 AM 10/29/16 06:00 Intake Total 3760 ml Output Total 4700 ml Balance -940 ml Laboratory Data 24H LABS Laboratory Tests 2 10/29/16 06:29: White Blood Count 5.3, Red Blood Count 3.79L, Hemoglobin 11.9L, Hematocrit 37.0 , Mean Corpuscular Volume 97.6H, Mean Corpuscular Hemoglobin 31.5, Mean Corpuscular Hemoglobin Concent 32.3, Red Cell Distribution Width 13.9, Platelet Count 356, Neutrophils (%) (Auto) 48.9, Lymphocytes (%) (Auto) 40.9, Monocytes ( %) (Auto) 5.5H, Eosinophils (%) (Auto) 2.4, Basophils (%) (Auto) 0.6, Neutrophils # (Auto) 2.6, Lymphocytes # (Auto) 2.3, Monocytes # (Auto) 0.3, Eosinophils # (Auto) 0.1, Basophils # (Auto) 0.0, Large Unclassified Cells % 1.7 , Large Unclassified Cells # 0.1, Erythrocyte Sedimentation Rate 25, C-Reactive Protein, Quantitative < 0.30 CBC/BMP Laboratory Tests 10/29/16 06:29 Red Blood Count 3.79 L, Mean Corpuscular Volume 97.6 H, Mean Corpuscular Hemoglobin 31.5, Mean Corpuscular Hemoglobin Concent 32.3, Red Cell Distribution Width 13.9, Neutrophils (%) (Auto) 48.9, Lymphocytes (%) (Auto) 40.9, Monocytes (%) (Auto) 5.5 H, Eosinophils (%) (Auto) 2.4, Basophils (%) ( Auto) 0.6, Neutrophils # (Auto) 2.6, Lymphocytes # (Auto) 2.3, Monocytes # (Auto ) 0.3, Eosinophils # (Auto) 0.1, Basophils # (Auto) 0.0 Microbiology Microbiology 10/23/16 Gram Stain - Final, Complete 10/23/16 Wound Culture - Final, Complete 10/23/16 Anaerobic Culture - Final, Complete 10/23/16 Gram Stain - Final, Complete 10/23/16 Wound Culture - Final, Complete 10/23/16 Anaerobic Culture - Final, Complete WIL GRAYSON PA-C October 29, 2016 10:09
[2016-10-29] MEDS: fentaNYL 50 MCG/HR PATCH TOP SCH (10:16)
[2016-10-29] MEDS: HYDROmorphone 2 MG TAB PO PRN ×2 (10:18→17:35)
--- NOTE | 2016-10-29 12:11 | IPN ---
DATE OF SERVICE: 10/28/2016 Lizeth is concerned about going home due to the fact that she still has swelling at the upper side of the incision. She has pain which is fairly controlled. She has mild headache as well. She denies any nausea, vomiting or diarrhea. Dr. Biggs was hoping she could be discharged home tomorrow. She has had no fever or chills. PHYSICAL EXAMINATION: Temperature is 99, pulse 100, respirations 18, blood pressure 118/78, oxygen saturation 98% on room air. Heart: Normal S1, S2. No murmurs. Lungs are clear. No wheezes, rales or rhonchi. Abdomen is soft, nontender. Back: At the upper part of the incision has significant swelling which is slightly worse than yesterday. There is very minimal erythema at the site. IMPRESSION: 1. Staphylococcus aureus postoperative wound infection. Culture positive for methicillin-susceptible Staphylococcus aureus (MSSA), on intravenous (IV) cefazolin and rifampin, doing well. 2. Cerebrospinal fluid (CSF) leak that could not be fixed on most recent surgery on last Wednesday, but there is persistent swelling subcutaneously and I am concerned that this is going to get worse when she goes home. PLAN: Will continue to monitor in the hospital, make sure she does not have any further leakage prior to discharge. I would not discharge her tomorrow. Dr. Castano will be covering for Dr. Biggs.
[2016-10-29 14:00] VITALS: BP 144/79
[2016-10-29] MEDS: SODIUM CHLORIDE 0.9% INJ 10 ML SYR IV PRN ×2 (16:01→23:10)
[2016-10-29] MEDS: ACETAMINOPHEN TAB 650MG DOSE (2X325MG) PO PRN (16:24)
[2016-10-29] MEDS: CETIRIZINE (ZyrTEC) 10 MG TAB PO SCH (20:27)
[2016-10-29] MEDS: MIRALAX *UNIT DOSE* 17GM PACKET PO SCH (20:27)
[2016-10-29 20:28] VITALS: BP 113/68
[2016-10-29] MEDS: LISINOPRIL 20 MG TAB PO SCH (20:28)
[2016-10-29] MEDS: SENNA 8.6 MG TAB (SENOKOT) PO SCH (20:28)
[2016-10-29 22:00] VITALS: BP 113/68
[2016-10-30] MEDS: HYDROmorphone 2 MG TAB PO PRN ×4 (00:04→17:08)
[2016-10-30] MEDS: ACETAMINOPHEN TAB 650MG DOSE (2X325MG) PO PRN ×2 (04:41→13:04)
[2016-10-30] MEDS: BACLOFEN 10 MG TAB PO SCH ×3 (05:31→17:07)
[2016-10-30] MEDS: GABAPENTIN 300 MG CAP PO SCH ×3 (05:31→17:07)
[2016-10-30] MEDS: SODIUM CHLORIDE 0.9% INJ 10 ML SYR IV SCH ×2 (05:32→17:08)
[2016-10-30 06:00] VITALS: BP 107/74
--- NOTE | 2016-10-30 10:09 | IPN ---
DATE: 10/29/2016 Lizeth seems to be doing well. She still has a subcutaneous collection from a cerebrospinal fluid (CSF) leak, but there is no more leakage outside the skin on the dressing. Her back pain is stable. She has a headache when she sits up. LABORATORY DATA: White count is 5.3, hemoglobin 11.9, hematocrit 37, platelets 356, 48% neutrophils, 40% lymphocytes, 5% monocytes. Sodium 144, potassium 3.7, chloride 110, bicarbonate 24, BUN 9, creatinine 0.6, glucose 98, calcium 9, and CRP less than 0.3. The 10/23/2016 wound cultures from the back are negative times two. PHYSICAL EXAMINATION: On physical examination, temperature is 98.5, pulse 107, respirations 18, blood pressure 144/79, oxygen saturation 100% on room air. HEART: Normal S1, S2. No murmurs. LUNGS: Clear. No wheezes, rales, or rhonchi. ABDOMEN: Soft, nontender. BACK: There is a subcutaneous collection which is slightly tender to touch, but there is no purulence. There is minimal redness. There is no drainage on the dressing. IMPRESSION: 1. Postoperative wound infection with methicillin-sensitive Staphylococcus aureus (MSSA) on culture, on IV cefazolin and rifampin, doing well. C-reactive protein (CRP) is less than 0.3. The patient is afebrile. 2. Cerebrospinal fluid (CSF) leak. We will continue to monitor closely. Hopefully, this will heal on its own. Dr. Castano has also seen the patient and would like to monitor her clinically. PLAN: The patient will be discharged home tomorrow on cefazolin 2 grams every eight hours for a total of four more weeks. If the patient has worsening cerebrospinal fluid (CSF) leak, she may need more extensive surgery. At this point, we will call advanced care tomorrow to institute home IV antibiotics.
[2016-10-30] MEDS ORDERED: DILA2TAB2 PO ×4 (15:49→17:58)
--- NOTE | 2016-10-30 16:27 | IPNPDOC ---
Date Seen The patient was seen on 10/30/16. Progress Note SUBJECTIVE: S/p lumbar laminectomy wound exploration. POD=7. OBJECTIVE PHYSICAL EXAMINATION: VITAL SIGNS: Please see below. AVSS. There is a subq collection of fluid in the superior aspect of the incision. No active drainage is noted. Bandage has been dry today. No warmth or erythema. ASSESSMENT AND PLAN: Management per Dr Biggs, plan to discharge today. Discussed discharge instructions. She will follow up with Dr Biggs in the office in 5 days or sooner if needed. Dr Marv Grayson, RPA-C VS, I&O, 24H, Fishbone Vital Signs/I&O Vital Signs Date Time Temp Pulse Resp B/P (MAP) Pulse Ox O2 Delivery O2 Flow Rate FiO2 10/30/16 11:45 18 10/30/16 06:00 97.3 61 107/74 (85) 94 10/29/16 18:35 Room Air 10/24/16 03:45 2.0 I&O- Last 24 Hours up to 6 AM 10/30/16 06:00 Intake Total 2880 ml Output Total 2100 ml Balance 780 ml Laboratory Data Microbiology Microbiology 10/23/16 Gram Stain - Final, Complete 10/23/16 Wound Culture - Final, Complete 10/23/16 Anaerobic Culture - Final, Complete 10/23/16 Gram Stain - Final, Complete 10/23/16 Wound Culture - Final, Complete 10/23/16 Anaerobic Culture - Final, Complete WIL GRAYSON PA-C October 30, 2016 16:27
--- NOTE | 2016-10-30 20:51 | IPN ---
DATE: 10/30/2016 SUBJECTIVE: Lizeth is going home today. She still has back pain but no fever or chills. Mild headache. No nausea, vomiting or diarrhea. She is tolerating medication well. She is on intravenous (IV) cefazolin 2 grams every eight hours, and rifampin 300 mg by mouth twice a day. Back: She still has swelling at the superior aspect of incision which is soft from cerebrospinal fluid (CSF) leak. There is minimal erythema at the site. LABORATORY DATA: White count is 5.3, hemoglobin 11.9, hematocrit 37, platelets 356. CRP less than 0.3. IMPRESSION: 1. Postoperative wound infection with methicillin-sensitive Staphylococcus aureus (MSSA) on IV cefazolin and rifampin till November 24. 2. Cerebrospinal fluid (CSF) leak, may need repair at a later time if does not stop. 3. Degenerative disc disease status post discectomy on baclofen 20 mg every six hours, gabapentin 300 mg every six hours, and narcotics. PLAN: The patient will be discharged home today and to followup in my office in two weeks.
--- NOTE | 2016-11-04 13:01 | DS.PDOC ---
Discharge Summary General Date of Admission Oct 15, 2016 at 11:29 Date of Discharge 10/30/16 Attending Physician: HOWIE DA SILVA MD Specialist/Consultants Involve: Magaly Forbes MD Specialist/Consultants Involve Hospitalist Discharge Summary PROCEDURES PERFORMED DURING STAY: 10/24/16. Lumbar laminectomy with wound exploration for dural tear with CSF leak. Performed by Dr. Da Silva. ADMITTING DIAGNOSES: 1. Dural tear with CSF leak 2. Postural headache 3. Chronic low back pain 4. Opioid dependency DISCHARGE DIAGNOSES: 1. Dural tear with CSF leak 2. Postural headache 3. Chronic low back pain 4. Opioid dependency COMPLICATIONS/CHIEF COMPLAINT: Back Pain and clear drainage on bandage from incision site. HISTORY OF PRESENT ILLNESS: This is a 55-year-old F with a history of HTN and pulmonary nodule followed by pulmonary who has recently undergone multiple lumbar surgeries by Dr Da Silva, with the most recent surgery on 09/26/16, who initially presented to the ED with a complaint of swelling at her incision site and postural headaches. She was admitted for further evaluation regarding a CSF leak. She had undergone her fifth lumbar surgery on 10/23/16 for wound exploration to repair dural tear with CSF leak. NEUROSURGICAL HISTORY: -08/26/16, by Dr. Da Silva. Decompression of left, across the midline at L4-5 with discectomy, [id number]- Myomectomies with partial facetectomies and foraminotomies, partial facet rhizotomies at L3-4, L4-5, L5-S1 on the left with posterior fusion using Bacterin interfaces allograft plug at L4-5. -09/06/16, by Dr. Da Silva. Lumbar laminectomy wound exploration, debridement, and drainage of serosanguineous collection subcutaneously. -09/10/16, by Dr. Da Silva. L2-L4 bilateral decompression with drainage of localized subarachnoid cyst. -09/26/16, by Dr. Da Silva. Lumbar surgical exploration. -10/23/16, by Dr. Da Silva. Lumbar laminectomy with wound exploration. HOSPITAL COURSE: Has been relatively uneventful with the exception of intermittent drainage noted on her bandage. She has remained afebrile and no new focal deficits noted on exam. No signs of meningitis throughout her hospital course. DISCHARGE MEDICATIONS: Please see below. ALLERGIES: Please see below. PHYSICAL EXAMINATION ON DISCHARGE: VITAL SIGNS: Please see below. Afebrile, vital signs stable. GENERAL: Appears to be in no acute distress. She moves her knees from side to side while laying in bed. Conversing well. SKIN: No warmth or active drainage from the incision site. Mild amount of patchy erythema. There is a moderate amount of swelling at the superior aspect of the incision. Surrounding area is tender to palpation. NEUROLOGICAL EXAMINATION: Alert and orientated. Speech is fluent. No new focal deficits noted on exam. She is able to move from supine position to right and left lateral recumbent without pain. SLR is negative. LABORATORY DATA: Please see below. IMAGING: -10/14/16, MRI LS. Interval exacerbation in enlargement in the posterior fluid collection. Large enhancing fluid collection noted in the posterior soft tissues including dorsal subcutaneous tissues. Collection is significant enlarged since the prior study and is most compatible with an abscess. -10/15/16, ultrasound-guided abscess drainage. -10/20/16, MRI of LS.1. Diffuse disc bulges at the L3-4 through L5-S1 levels with minimal thecal sac compression. 2. The patient is status post L3-4 and a left L4-5 laminectomy. Fluid collections are present at the laminectomy sites. The fluid collection at the laminectomy site at the L3-4 level appears to communicate with a superficial fluid collection in the overlying posterior subcutaneous tissue. This fluid collection is increased in size compared to the previous study. The superficial fluid collection is decreased in size. A fluid collection is present at the laminectomy site at the L4-5 level. This is unchanged in size compared to the previous study. A second fluid collection is present in the superficial posterior subcutaneous soft tissue. This fluid collection is decreased in size compared to the previous study. -10/24/16, CT of LS. Recurrence of abnormal air density in the soft tissues as described above suspicious for gas reducing bacterial wound infection. Additional imaging studies available in the EMR. ACTIVITY: Bed rest with bathroom privileges-- lay with HoB at 30 degrees as much as possible- until 1 week follow up with Dr Da Silva. DIET: As tolerated. DISPOSITION: Discharge to home per Dr. Da Silva's instruction. DISCHARGE INSTRUCTIONS: The following discharge instructions have been discussed with her: - Keep area of incision and bandage completely dry until at least 2 wks or follow up in the office. - Monitor for signs and symptoms of infection as discussed. - Take temp twice daily and call office if temp >/= 100 F. - She is to call office to schedule follow up appointment within 1 week or sooner if needed. - She is to call the office or go to the ED if any new symptoms arise. - She is to continue pre-admission meds, as well as antibiotic per Dr Forbes's instruction. - Seizure precautions. Fall precautions. - No driving for at least 2 weeks. She understands she needs to be asymptomatic for at least 1 week before operating a vehicle or machinery. All questions have been answered to her satisfaction. She understands and is aware of possible catastrophic sequel if he/ she does not follow these recommendations. Mrs Salas and her agree to follow up in the office within 1 week or sooner if needed. DISCHARGE CONDITION: Stable, with no active drainage visible or drainage present on bandage. TIME SPENT ON DISCHARGE: Greater than 60 minutes. Vital Signs/I&Os Vital Signs Date Time Temp Pulse Resp B/P (MAP) Pulse Ox O2 Delivery O2 Flow Rate FiO2 10/30/16 17:45 18 10/30/16 06:00 97.3 61 107/74 (85) 94 10/29/16 18:35 Room Air Microbiology Microbiology 10/23/16 Gram Stain - Final, Complete 10/23/16 Wound Culture - Final, Complete 10/23/16 Anaerobic Culture - Final, Complete 10/23/16 Gram Stain - Final, Complete 10/23/16 Wound Culture - Final, Complete 10/23/16 Anaerobic Culture - Final, Complete Discharge Medications Scheduled Baclofen (Baclofen) 20 Mg Tab, 20 MG PO TID, (Reported) Cetirizine HCl (Cetirizine HCl) 10 Mg Tab, 10 MG PO QHS, (Reported) Gabapentin (Neurontin) 300 Mg Cap, 300 MG PO TID, (Reported) Lisinopril (Lisinopril) 20 Mg Tab, 20 MG PO QHS, (Reported) Multivitamins Liquid *[facility] STOCKED* (Multi-Delyn Liquid *[facility] STOCKED*) 5 Ml Liqd , 5 ML PO DAILY, (Reported) Polyethylene Glycol (Miralax) 1 Pow Pow, 17 GM PO QHS, (Reported) Senna (Senna Lax) 8.6 Mg Tab, 2 TAB PO QHS, (Reported) Scheduled PRN Acetaminophen (Tylenol) 325 Mg Tab, 650 MG PO Q4HP PRN for PAIN / FEVER, ( Reported) Hydromorphone HCl (Dilaudid) 2 Mg Tab, 1 MG PO Q6HP PRN for PAIN Oxycodone/Acetaminophen (Percocet 5-325 mg) 1 Tab Tab, 2 TAB PO Q6H PRN for PAIN , (Reported) Allergies Coded Allergies: Latex (Verified Allergy, Intermediate, rash, 09/23/16) Morphine (Verified Adverse Reaction, Mild, vomiting, 08/21/16) WIL MCCLURE PA-C November 02, 2016 08:17
== END 2016-10-30 18:20 | disposition home or self-care (01) | DRG 862 ==
LOC: M ED 16:04 → M ED INP 16:05 → M MSPAV 10-15 02:06 → OBSVTOIN 10-15 11:29
PROVIDERS: ADMIT Neurological Surgery; ATTEND Neurological Surgery
PROC: 0J973ZX Drainage of Back Subcutaneous Tissue and Fascia, Percutaneous Approach, Diagnostic (ICD-10-PCS; 2016-10-15)
PROC: 02HV33Z Insertion of Infusion Device into Superior Vena Cava, Percutaneous Approach (ICD-10-PCS; 2016-10-16)
PROC: 0J970ZX Drainage of Back Subcutaneous Tissue and Fascia, Open Approach, Diagnostic (ICD-10-PCS; 2016-10-23)
PROC: 0JJT0ZZ Inspection of Trunk Subcutaneous Tissue and Fascia, Open Approach (ICD-10-PCS; principal; 2016-10-23 12:52)
DX: T81.4XXD Infection following a procedure, subsequent encounter (principal); G06.1 Intraspinal abscess and granuloma; E46 Unspecified protein-calorie malnutrition; G96.0 Cerebrospinal fluid leak; F11.20 Opioid dependence, uncomplicated; G97.63 Postprocedural seroma of a nervous system organ or structure following a nervous system procedure; M54.5 Low back pain; I10 Essential (primary) hypertension; R91.1 Solitary pulmonary nodule; R51 Headache; Z79.899 Other long term (current) drug therapy; Z88.5 Allergy status to narcotic agent; Z91.040 Latex allergy status; L03.818 Cellulitis of other sites; B95.61 Methicillin susceptible Staphylococcus aureus infection as the cause of diseases classified elsewhere; G40.909 Epilepsy, unspecified, not intractable, without status epilepticus; K21.9 Gastro-esophageal reflux disease without esophagitis; D64.9 Anemia, unspecified

== ENCOUNTER → 2016-11-02 | Outpatient (REF) | payer OTHER ==
[~2016-11-02] MED LIST changes: +DILA2TAB2 PO; +FENT50PA TD; +VITA5ELUD PO
[2016-11-02 13:45] LABS: BASO % 0.5 % (0.0-1.0); EOS # 0.1 K/mm3 (0.0-0.50); EOS % 1.1 % (0.0-3.0); LARGE UNSTAINED CELL # 0.1 K/mm3 (0.0-0.4); LARGE UNSTAINED CELL % 1.1 % (0.0-4.0); LYMPH # 1.9 K/mm3 (1.5-4.5); LYMPH % 29.4 % (24.0-44.0); MEAN CORPUSCULAR HEMOGLOBIN 32.1 pg (27.0-33.0); MEAN CORPUSCULAR HGB CONC 33.4 g/dl (32.0-36.5); MONO # 0.5 K/mm3 (0.0-0.8); MONO % 7.2 % (0.0-5.0); NEUTROPHILS # 3.8 K/mm3 (1.8-7.7); NEUTROPHILS % 60.7 % (36.0-66.0); PLATELET COUNT, AUTOMATED 298 k/mm3 (150-450); RED CELL DISTRIBUTION WIDTH 13.4 % (11.5-14.5); WHITE BLOOD COUNT 6.3 K/mm3 (4.0-10.0)
[2016-11-02 14:04] LABS: ALBUMIN 3.4 GM/DL (3.2-5.2); ALBUMIN/GLOBULIN RATIO 1.13 (1.00-1.93); ALKALINE PHOSPHATASE 65 U/L (45-117); ALT/SGPT 10 U/L (12-78); ANION GAP 10 MEQ/L (8-16); AST/SGOT 15 U/L (15-37); BILIRUBIN,TOTAL 0.3 MG/DL (0.2-1.0); BLOOD UREA NITROGEN 16 MG/DL (7-18); CALCIUM LEVEL 8.4 MG/DL (8.5-10.1); CARBON DIOXIDE LEVEL 26 MEQ/L (21-32); CHLORIDE LEVEL 101 MEQ/L (98-107); CREATININE FOR GFR 0.64 MG/DL (0.55-1.02); GLOMERULAR FILTRATION RATE > 60.0 (>51); GLUCOSE, FASTING 85 MG/DL (70-105); POTASSIUM SERUM 4.4 MEQ/L (3.5-5.1); SODIUM LEVEL 137 MEQ/L (136-145); TOTAL PROTEIN 6.4 GM/DL (6.4-8.2)
[2016-11-02 14:26] LABS: ERYTHROCYTE SEDIMENTATION RATE 22 mm/hr (0-30)
== END ==
LOC: M LAB REF 12:59
PROVIDERS: ATTEND Internal Medicine Infectious Disease
DX: T81.4XXA Infection following a procedure, initial encounter (principal)

== ENCOUNTER → 2016-11-09 | Outpatient (REF) | payer OTHER ==
[2016-11-09 16:59] LABS: BASO % 0.4 % (0.0-1.0); EOS # 0.1 K/mm3 (0.0-0.50); EOS % 2.8 % (0.0-3.0); LARGE UNSTAINED CELL # 0.1 K/mm3 (0.0-0.4); LARGE UNSTAINED CELL % 1.6 % (0.0-4.0); LYMPH # 2.2 K/mm3 (1.5-4.5); MEAN CORPUSCULAR HEMOGLOBIN 31.3 pg (27.0-33.0); MEAN CORPUSCULAR HGB CONC 32.7 g/dl (32.0-36.5); MEAN CORPUSCULAR VOLUME 95.6 fl (80.0-96.0); MONO # 0.2 K/mm3 (0.0-0.8); MONO % 6.1 % (0.0-5.0); NEUTROPHILS # 1.4 K/mm3 (1.8-7.7); PLATELET COUNT, AUTOMATED 179 k/mm3 (150-450); RED CELL DISTRIBUTION WIDTH 13.2 % (11.5-14.5)
[2016-11-09 17:40] LABS: ALBUMIN 3.4 GM/DL (3.2-5.2); ALBUMIN/GLOBULIN RATIO 1.17 (1.00-1.93); ALKALINE PHOSPHATASE 55 U/L (45-117); ALT/SGPT 11 U/L (12-78); ANION GAP 9 MEQ/L (8-16); AST/SGOT 14 U/L (15-37); BILIRUBIN,TOTAL 0.2 MG/DL (0.2-1.0); BLOOD UREA NITROGEN 8 MG/DL (7-18); CALCIUM LEVEL 8.2 MG/DL (8.5-10.1); CARBON DIOXIDE LEVEL 27 MEQ/L (21-32); CHLORIDE LEVEL 102 MEQ/L (98-107); CREATININE FOR GFR 0.78 MG/DL (0.55-1.02); GLOMERULAR FILTRATION RATE > 60.0 (>51); GLUCOSE, FASTING 111 MG/DL (70-105); SODIUM LEVEL 138 MEQ/L (136-145); TOTAL PROTEIN 6.3 GM/DL (6.4-8.2)
[2016-11-09 17:47] LABS: ERYTHROCYTE SEDIMENTATION RATE 25 mm/hr (0-30)
== END ==
LOC: M LAB REF 16:22
PROVIDERS: ATTEND Internal Medicine Infectious Disease
DX: T81.4XXA Infection following a procedure, initial encounter (principal)

== ENCOUNTER → 2016-11-17 | Outpatient (REF) | payer OTHER ==
[2016-11-17 20:21] LABS: BASO % 0.4 % (0.0-1.0); EOS # 0.2 K/mm3 (0.0-0.50); EOS % 5.2 % (0.0-3.0); LARGE UNSTAINED CELL # 0.1 K/mm3 (0.0-0.4); LARGE UNSTAINED CELL % 2.3 % (0.0-4.0); LYMPH # 2.2 K/mm3 (1.5-4.5); LYMPH % 51.9 % (24.0-44.0); MEAN CORPUSCULAR HEMOGLOBIN 31.5 pg (27.0-33.0); MEAN CORPUSCULAR VOLUME 95.2 fl (80.0-96.0); MONO # 0.3 K/mm3 (0.0-0.8); MONO % 7.7 % (0.0-5.0); NEUTROPHILS # 1.3 K/mm3 (1.8-7.7); NEUTROPHILS % 32.6 % (36.0-66.0); PLATELET COUNT, AUTOMATED 190 k/mm3 (150-450); RED CELL DISTRIBUTION WIDTH 12.8 % (11.5-14.5); WHITE BLOOD COUNT 4.1 K/mm3 (4.0-10.0)
[2016-11-17 21:03] LABS: ALBUMIN 3.5 GM/DL (3.2-5.2); ALBUMIN/GLOBULIN RATIO 1.35 (1.00-1.93); ALKALINE PHOSPHATASE 69 U/L (45-117); ALT/SGPT 8 U/L (12-78); ANION GAP 7 MEQ/L (8-16); AST/SGOT 18 U/L (15-37); BILIRUBIN,TOTAL 0.2 MG/DL (0.2-1.0); BLOOD UREA NITROGEN 9 MG/DL (7-18); CALCIUM LEVEL 8.7 MG/DL (8.5-10.1); CARBON DIOXIDE LEVEL 28 MEQ/L (21-32); CHLORIDE LEVEL 105 MEQ/L (98-107); CREATININE FOR GFR 0.66 MG/DL (0.55-1.02); ERYTHROCYTE SEDIMENTATION RATE 16 mm/hr (0-30); GLOMERULAR FILTRATION RATE > 60.0 (>51); GLUCOSE, FASTING 109 MG/DL (70-105); POTASSIUM SERUM 4.2 MEQ/L (3.5-5.1); SODIUM LEVEL 140 MEQ/L (136-145); TOTAL PROTEIN 6.1 GM/DL (6.4-8.2)
== END ==
LOC: M LAB REF 09:52
PROVIDERS: ATTEND Internal Medicine Infectious Disease
DX: T81.4XXA Infection following a procedure, initial encounter (principal)

== ENCOUNTER → 2016-11-23 | Outpatient (REF) | payer OTHER ==
[2016-11-23 17:05] LABS: ALBUMIN 3.6 GM/DL (3.2-5.2); ALBUMIN/GLOBULIN RATIO 1.38 (1.00-1.93); ALKALINE PHOSPHATASE 61 U/L (45-117); ALT/SGPT 16 U/L (12-78); ANION GAP 8 MEQ/L (8-16); AST/SGOT 18 U/L (15-37); BILIRUBIN,TOTAL 0.3 MG/DL (0.2-1.0); BLOOD UREA NITROGEN 11 MG/DL (7-18); CALCIUM LEVEL 8.3 MG/DL (8.5-10.1); CARBON DIOXIDE LEVEL 26 MEQ/L (21-32); CHLORIDE LEVEL 105 MEQ/L (98-107); CREATININE FOR GFR 0.71 MG/DL (0.55-1.02); GLOMERULAR FILTRATION RATE > 60.0 (>51); GLUCOSE, FASTING 88 MG/DL (70-105); POTASSIUM SERUM 4.3 MEQ/L (3.5-5.1); SODIUM LEVEL 139 MEQ/L (136-145); TOTAL PROTEIN 6.2 GM/DL (6.4-8.2)
[2016-11-23 19:09] LABS: BASO % 0.3 % (0.0-1.0); EOS # 0.1 K/mm3 (0.0-0.50); LARGE UNSTAINED CELL # 0.1 K/mm3 (0.0-0.4); LARGE UNSTAINED CELL % 2.4 % (0.0-4.0); LYMPH # 2.1 K/mm3 (1.5-4.5); LYMPH % 46.1 % (24.0-44.0); MEAN CORPUSCULAR HEMOGLOBIN 31.5 pg (27.0-33.0); MEAN CORPUSCULAR HGB CONC 32.7 g/dl (32.0-36.5); MEAN CORPUSCULAR VOLUME 96.4 fl (80.0-96.0); MONO # 0.3 K/mm3 (0.0-0.8); MONO % 6.4 % (0.0-5.0); NEUTROPHILS # 1.9 K/mm3 (1.8-7.7); NEUTROPHILS % 42.9 % (36.0-66.0); PLATELET COUNT, AUTOMATED 231 k/mm3 (150-450); RED CELL DISTRIBUTION WIDTH 12.9 % (11.5-14.5); WHITE BLOOD COUNT 4.4 K/mm3 (4.0-10.0)
[2016-11-23 20:39] LABS: ERYTHROCYTE SEDIMENTATION RATE 8 mm/hr (0-30)
== END ==
LOC: M LAB REF 16:05
PROVIDERS: ATTEND Internal Medicine Infectious Disease
DX: T81.4XXS Infection following a procedure, sequela (principal)

== ENCOUNTER → 2016-12-04 | Outpatient (CLI) | payer OTHER ==
--- NOTE | 2016-12-04 11:19 | REP ---
CT of the chest without IV contrast, follow-up study: Comparison is 08/21/2016. The large ground-glass opacity noted previously in the right upper lobe has resolved and is no longer present. The mild irregular pleural thickening noted posteriorly bilaterally previously is no longer present. There are no new infiltrates or effusions. There are no nodules or masses. There is no mediastinal or axillary adenopathy. In the absence of IV contrast the study is insensitive for hilar adenopathy. The unenhanced thoracic aorta is unremarkable. The unenhanced visualized upper abdominal contents are unremarkable. Impression: Essentially negative CT study of the chest. The right upper lobe ground-glass density identified previously, has resolved. The mild bilateral pleural thickening posteriorly identified previously, has resolved. Signed by Maco Hernandez MD 12/04/2016 11:10 A
== END ==
LOC: M RAD 06:50
PROVIDERS: ATTEND Internal Medicine Pulmonary Disease
DX: R91.8 Other nonspecific abnormal finding of lung field (principal)

== ENCOUNTER → 2018-12-08 | Outpatient (REF) ==
[~2018-12-08] MED LIST changes: -BACL-67 PO; +BACL1TAB9 PO; -DILA2TAB2 PO; +DILA2TAB6 PO; +FENT50DI33 TD; -FENT50PA TD; -GABA-282 PO; +GABA-843 PO; -LIDO5DIS36 TD; +LIDO5DIS41 TD; -MINEOIL3 PO; +MINEOIL60 PO; +OXYC-141 PO; -OXYC-299 PO; +PERC5TAB12 PO; -PERC5TAB6 PO; +SENN1TAB10 PO; -SENN8.6T10 PO; -SENO8.6T2 PO; +SENO8.6T5 PO
== END ==
LOC: M LAB LCGH 15:48
PROVIDERS: ATTEND Orthopaedic Surgery
DX: I96 Gangrene, not elsewhere classified (principal)

== ENCOUNTER → 2019-01-10 | Outpatient (REF) | payer OTHER ==
[2019-01-10 11:32] LABS: BASO % 0.6 % (0.0-1.0); EOS # 0.1 10^3/uL (0.0-0.50); EOS % 1.8 % (0.0-3.0); HEMATOCRIT 36.4 % (36.0-47.0); HEMOGLOBIN 11.9 g/dl (12.0-15.5); LYMPH # 2.6 10^3/uL (1.5-4.5); LYMPH % 37.9 % (24.0-44.0); MEAN CORPUSCULAR HEMOGLOBIN 31.5 pg (27.0-33.0); MEAN CORPUSCULAR HGB CONC 32.7 g/dl (32.0-36.5); MEAN CORPUSCULAR VOLUME 96.3 fl (80.0-96.0); MONO # 0.5 10^3/uL (0.0-0.8); MONO % 7.4 % (0.0-5.0); NEUTROPHILS # 3.5 10^3/uL (1.8-7.7); NEUTROPHILS % 51.9 % (36.0-66.0); PLATELET COUNT, AUTOMATED 266 10^3/uL (150-450); RED BLOOD COUNT 3.78 10^6/uL (4.00-5.40); WHITE BLOOD COUNT 6.8 10^3/uL (4.0-10.0)
[2019-01-10 12:10] LABS: ERYTHROCYTE SEDIMENTATION RATE 7 mm/hr (0-30)
== END ==
LOC: M SFHCPLAZ 09:20
PROVIDERS: ATTEND Internal Medicine Infectious Disease
DX: M00.062 Staphylococcal arthritis, left knee (principal)